=== PATIENT | female | born 1940 | race Hispanic/Latino ===

== ENCOUNTER 2020-05-03 19:57 | Emergency (ER) | payer MEDICARE ==
[~2020-05-03] VITALS: Ht 162.6 cm; Wt 70.3 kg
[2020-05-03] MEDS ORDERED: ONDANSETRON HCL INJ 2MG/ML 2ML 2 MG/ML VIAL IV STA (20:38)
[2020-05-03] MEDS ORDERED: MORPHINE SULFATE 5 MG/ML VIAL IV ONE (20:45)
[2020-05-03] MEDS ORDERED: SODIUM CHLORIDE FLUSH 10 ML SYR INJ PRN (20:45)
--- NOTE | 2020-05-03 20:46 | Emergency Department Note ---
History of Present Illnes History of Present Illness Chief Complaint: upper mid to left back pain History of Present Illness This is a 80 year old female. was doing well prior to this. pt only has pain with movement Historian: Patient, Family Member Arrival Mode: Car History limited by: condition of the patient (normal) Silver Recovery Operator Required: No Onset (how long ago): hour(s) (8.5) Location: see above Quality: sharp Radiation: Reports non-radiation Severity: severe Onset quality: sudden Duration (how long): hour(s) (8.5) Timing of current episode: constant Progression: worsening Chronicity: new Context: Denies recent illness, Denies recent surgery, Denies recent immobilization, Denies recent travel, Denies trauma/injury, Denies new medic ations, Denies hx of DVT/PE, Denies non-compliance w/ medications Relieving factors: none Exacerbating factors: other (inhaling ) Associated symptoms: Reports shortness of breath Treatments prior to arrival: none Past Medical/Family History Physician Review I have reviewed the patient's past medical and family history. Any updates have been documented here. Past Medical History Recent Fever: No Clinical Suspicion of Infectio: No New/Unexplained Change in Ment: No Past Medical History: Hypertension, Hypothyroidism, GERD Other Medical History: HIGH CHOLESTEROL, INCONTINENCE Past Surgical History: Cholecysctectomy, Hysterectomy Other Surgery: TUMOR REMOVED L-EAR Social History Smoking Cessation: Never Smoker Alcohol Use: None Any Illegal Drug Use: No Physically hurt or threatened: No Other Any Pre-Existing Lines (PICC,: No Is patient up to date on immun: No Review of Systems Review of Systems Constitutional: Reports no symptoms EENTM: Reports no symptoms Cardiovascular: Reports no symptoms Respiratory: Reports as per HPI Gastrointestinal: Reports no symptoms Genitourinary: Reports no symptoms Musculoskeletal: Reports as per HPI Integumentary: Reports no symptoms Neurological: Reports no symptoms Psychological: Reports no symptoms Endocrine: Reports no symptoms Hematological/Lymphatic: Reports no symptoms Review of other systems: All other systems negative Physical Exam Related Data Allergies: Coded Allergies: Penicillins (Verified Allergy, Unknown, 05/03/20) streptomycin (Verified Allergy, Unknown, 05/03/20) Triage Vital Signs Vital Signs Date Time Temp Pulse Resp B/P (MAP) Pulse Ox O2 Delivery O2 Flow Rate FiO2 05/03/20 20:20 97.6 75 18 165/72 98 Room Air Vital signs reviewed: Yes Physical Exam CONSTITUTIONAL Constitutional: Present well-developed, Present well-nourished HENT HENT: Present normocephalic, Present atraumatic, Present oropharynx clear/moist, Present nose normal HENT L/R: Present left ext ear normal, Present right ext ear normal EYES Eyes: Reports PERRL, Reports conjunctivae normal NECK Neck: Present ROM normal, Present supple PULMONARY Pulmonary: Present effort normal, Present breath sounds normal CARDIOVASCULAR Cardiovascular: Present regular rhythm, Present heart sounds normal, Present capillary refill normal, Present normal rate GASTROINTESTINAL Abdominal: Present soft, Present nontender, Present bowel sounds normal GENITOURINARY Genitourinary: Present exam deferred SKIN Skin: Present warm, Present dry MUSCULOSKELETAL Musculoskeletal: Present ROM normal, Present other (+left upper back spasms) NEUROLOGICAL Neurological: Present alert, Present oriented x 3, Present no gross motor or sensory deficits PSYCHOLOGICAL Psychological: Present mood/affect normal, Present judgement normal Results Laboratory Lab results reviewed: Yes Laboratory comments cbc/cmp normal, cardiac enzymes normal except mild elevation myoglobin/troponin, coags nl Imaging Imaging results reviewed: Yes Impressions [place] [address] Patient Name: AYLIN LOGAN MR #: [id number] : 1940 Age/Sex: 80/F Req #: [id number] Adm Physician: Ordered by: CALEB SCHUMACHER Report #: [id number] Location: [facility] Room/Bed: Procedure: [id number] HOPD/CXR 2 VIEW - HOPD Exam Date: 05/03/20 Exam Time: 0 REPORT STATUS: Signed EXAMINATION: CXR 2 VIEW - HOPD INDICATION: Back pain COMPARISON: None FINDINGS: TUBES and LINES: None. LUNGS: Normal lung volumes. Lungs are clear. No consolidations. PLEURA: No pleural effusion or pneumothorax. HEART AND MEDIASTINUM: The cardiomediastinal silhouette is within normal size limits.. Aortic calcifications. BONES AND SOFT TISSUES: Osseous demineralization. Degenerative changes in the spine. No acute osseous lesion. Soft tissues are unremarkable. UPPER ABDOMEN: No free air under the diaphragm. IMPRESSION: No acute intrathoracic radiographic abnormality. Degenerative changes in the spine. Osseous demineralization. Signed by: Farhad Veliz DO on 05/03/2020 10:49 PM Dictated By: FARHAD VELIZ DO 48 Transcribed By: YANDY on 05/03/202248 COPY TO: CALEB SCHUMACHER~ Procedures 12 Lead ECG Interpretation ECG Interpretation : ECG: ECG 1 Silver Recovery Operator: Interpreted by ED physician Date: May 03, 2020 Time: 20:24 Prior ECG tracings: reviewed Rhythm: sinus rhythm Rate: normal BPM: 64 QRS axis: normal ST segments normal: Yes T waves normal: Yes Clinical Impression: normal ECG (nsr) Assessment & Plan Medical Decision Making MDM see below Reassessment Reassessment time: 22:50 Reassessment pain almost resolved s/p tylenol Assessment & Plan Final Impression: (1) Strain, back Depart Disposition: HOME, SELF-CARE Last Vital Signs Date Time Temp Pulse Resp B/P (MAP) Pulse Ox O2 Delivery O2 Flow Rate FiO2 05/03/20 20:20 97.6 75 18 165/72 98 Room Air Home Meds Active Scripts Cyclobenzaprine Hcl (FLEXERIL) 5 Mg Tablet, 10 MG PO Q8H PRN for MUSCLE SPASMS, #15 TAB 1 Refill take after ibuprofen to control pain Prov:CALEB SCHUMACHER 05/03/20 Ibuprofen (IBUPROFEN) 600 Mg Tablet, 600 MG PO Q6H PRN for MODERATE PAIN (4-6), #30 TAB Prov:CALEB SCHUMACHER 05/03/20 Medications in the ED Sodium Chloride 10 ml PRN PRN INJ IV SITE FLUSH; Start 05/03/20 at 20:45; Stop 06/02/20 at 20:44; Status UNV Morphine Sulfate 2 mg ONCE ONCE IV ; Start 05/03/20 at 20:45; Stop 05/03/20 at 20:46; Status UNV Ondansetron HCl 4 mg NOW STAT IV ; Start 05/03/20 at 20:38; Stop 05/03/20 at 20:39; Status UNV CALEB SCHUMACHER May 03, 2020 20:46
[2020-05-03] MEDS ORDERED: ACETAMINOPHEN 325 MG TAB PO ONE (21:00)
[2020-05-03] MEDS ORDERED: ACETAMINOPHEN 325 MG TAB ONE (21:00)
--- NOTE | 2020-05-03 21:42 | NUR ---
PT RETURNED TO RM 2 FROM XR VIA WC
[2020-05-03 22:23] LABS: BASOPHILS # (AUTO) 0.1 (0.0-0.1); BASOPHILS % 0.7 % (0.0-1.0); EOSINOPHILS # (AUTO) 0.1 (0.0-0.4); EOSINOPHILS % 1.9 % (0.0-6.0); HEMATOCRIT 35.6 % (34.2-44.1); HEMOGLOBIN 11.7 g/dL (12.0-16.0); LYMPHOCYTES # (AUTO) 2.8 (1.0-3.2); LYMPHOCYTES % 37.6 % (18.0-39.1); MEAN CORPUSCULAR HEMOGLOBIN 29.1 pg (28-32); MEAN CORPUSCULAR HGB CONC 32.9 g/dL (31-35); MEAN CORPUSCULAR VOLUME 88.6 fL (81-99); MONOCYTES # (AUTO) 0.7 (0.2-0.8); NEUTROPHILS # (AUTO) 3.7 (2.1-6.9); NEUTROPHILS % 49.3 % (38.7-80.0); PLATELET COUNT 236 x10e3/uL (140-360); RED BLOOD COUNT 4.02 x10e6/uL (3.6-5.1); RED CELL DISTRIBUTION WIDTH 13.3 % (11.7-14.4)
--- NOTE | 2020-05-03 22:53 | Diagnostic Imaging Report ---
EXAMINATION: CXR 2 VIEW - HOPD INDICATION: Back pain COMPARISON: None FINDINGS: TUBES and LINES: None. LUNGS: Normal lung volumes. Lungs are clear. No consolidations. PLEURA: No pleural effusion or pneumothorax. HEART AND MEDIASTINUM: The cardiomediastinal silhouette is within normal size limits.. Aortic calcifications. BONES AND SOFT TISSUES: Osseous demineralization. Degenerative changes in the spine. No acute osseous lesion. Soft tissues are unremarkable. UPPER ABDOMEN: No free air under the diaphragm. IMPRESSION: No acute intrathoracic radiographic abnormality. Degenerative changes in the spine. Osseous demineralization. Signed by: Farhad Veliz DO on 05/03/2020 10:49 PM
--- NOTE | 2020-05-03 22:54 | NUR ---
REC'D XR RESULTS. INFORMED
--- NOTE | 2020-05-03 23:01 | NUR ---
INFORMED PT ALL RESULTS ARE BACK. AND MD WOULD BE IN SHORTLY WITH RESULTS.
[2020-05-03] MEDS ORDERED: IBUPROFEN600 MG PO (23:09)
[2020-05-03] MEDS ORDERED: CYCLOBENZAPRINE5 MG PO (23:09)
[2020-05-03 23:24] VITALS: BP 152/68
--- OUTSIDE RECORDS SUMMARY | 2020-05-03 23:32 | XMS REPORT | Continuity of Care Document ---
Author Author [facility] Organization [facility] Address Unknown Phone Unavailable Care Team Providers Care Senior Telecommunications Specialist Name Role Phone Practice Ignition Information Qlusters Unavailable Un available Problems Problem Status Onset Date Classification Date Reported Comments Source R22.1/R22.0 Active 06/06/2019 [facility] DX: ABNORMAL MAMMOGRAM /// BILATERAL DIONNA Active 05/04/2019 [facility] DX: 6 MO F/U, RIGHT BREAST MASS NO IM Active 10/20/2018 [facility] Gastro-esophageal reflux disease without esophagitis 03/16/2018 09/27/2018 [facility] N63.0 / R92.2 Active 03/16/2018 [facility] DX: R10.13=EPIGASTRIC PAIN/K21.9=GASTRO- Active 03/08/2018 [facility] R06.02 SHORTNESS OF BREATH Act meli 02/16/2018 [facility] FIRST NIGHT 21737 Active 01/11/2018 [facility] CHEST XRAY Active 01/05/2018 [facility] 24 HOUR Active 12/07/2017 [facility] Bilateral primary osteoarthritis of knee 12/07/2017 03/07/2018 [facility] [place], [facility] [place] VENANCIO KNEES , OA Active 10/27/2017 [facility] [place] Pain in left knee 10/22/2017 01/23/2018 [facility] [place] Syncope and collapse 10/19/2017 01/19/2018 [facility] [place] VENANCIO KNEES Active 05/22/2017 [facility] [place] XRAYS Active 01/26/2017 [facility] MASS Active 05/01/2016 [facility] SCREENING MAMMOGRAM Active 04/13/2016 [facility] M25.561 PAIN IN RIGHT KNEE Act meli 04/12/2016 [facility] CAD without angina Active Problem 04/15/2020 Slava Pearson MD, PA Hypertensive heart disease without heart failure Active Problem 04/15/2020 Slava Pearson MD, P A Angina pectoris, unspecified A ctive Problem Slava Pearson MD, PA Angina pectoris Active Problem 04/15/2020 Slava Pearson MD, PA Bradycardia, unspecified Active Problem 04/15/2020 Slava Pearson MD, PA Dyspnea, unspecified Active Problem 04/15/2020 Slava Pearson MD, PA Palpitations Active Diagnosis 04/01/2020 Slava Pearson MD, PA Shortness of breath Active Diagnosis 02/08/2018 Slava Pearson MD, PA Atherosclerotic heart disease of [place] coronary artery with unstable angina pectoris Active Problem 04/15/2020 Slava Pearson MD, PA Preoperative cardiac clearance Active Problem Slava Pearson MD, PA Chest pain, unspecified Active Diagnosis 11/05/2016 Slava Pearson MD, PA PVCs Active Problem 04/15/2020 Slava Pearson MD, PA Unsteadiness on feet 03/07/2018 [facility] [place] Other lack of coordination 01/19/2018 [facility] [place] Disorientation, unspecified 01/19/2018 [facility] [place] Cerebral ischemia 01/19/2018 [facility] [place] Muscle weakness (generalized) 03/07/2018 [facility] [place] Unspecified lump in the right breast, un specified quadrant 05/23/2019 [facility] Solitary cyst of left breast 10/09/2018 [facility] Solitary cyst of right breast 10/09/2018 [facility] Epigastric pain 09/27/2018 [facility] Left upper quadrant pain 09/27/2018 [facility] Diaphragmatic hernia without obstruction or gangrene 09/27/2018 [facility] Gastritis, unspecified, without bleeding 09/27/2018 [facility] Cyst of kidney, acquired 09/27/2018 [facility] Benign lipomatous neoplasm of kidney 09/27/2018 [facility] Benign lipomatous neoplasm of other sites 09/27/2018 [facility] Final: Encounter for screening mammogram for malignant neoplasm of breast 05/01/2016 [facility] Hypertension Active 11/14/2013 [facility] Hyperlipidemia Active 11/14/2013 [facility] Left Ventricular Hypertrophy A ctive 09/13/2013 [facility] Tricuspid Regurgitation Active 09/13/2013 [facility] Murmurs Active 09/13/2013 [facility] Chest Pain Or Discomfort Active 09/13/2013 [facility] Premature Ventricular Contractions Active 09/13/2013 The patient has a documented episode of a symptomatic PVC while she was having a EKG performed today. Will start Metoprolol Succinate 25mg daily. Will discontinue Amlodipine [facility] Hypothyroidism Active 11/14/2013 [facility] Plantar Fasciitis Active 09/13/2013 [facility] Chest Pain Active 05/11/2013 Mostly atypical in nature. [facility] Difficulty Breathing (Dyspnea) Active 05/11/2013 [facility] Fatigue Active 05/11/2013 [facility] Esophageal Reflux Active 11/14/2013 [facility] Migraine Headache Active 11/14/2013 [facility] Tension-type Headache Active 11/14/2013 [facility] PAIN IN RIGHT KNEE Active [facility] ENCNTR SCREEN MAMMOGRAM FOR MALIGNANT NE Active [facility] UNSPECIFIED LUMP IN BREAST Act meli [facility] 24 HOLTER Active [facility] BRADYCARDIA, UNSPECIFIED Active [facility] UNILATERAL PRIMARY OSTEOARTHRITIS, LEFT Active [facility] PAIN IN LEFT KNEE Active [facility] BILATERAL PRIMARY OSTEOARTHRITIS OF KNEE Active [facility] [place] MUSCLE WEAKNESS (GENERALIZED) Active [facility] [place] STIFFNESS OF UNSPECIFIED JOINT, NOT ELSE Active [facility] [place] UNSTEADINESS ON FEET Active [facility] [place] OBSTRUCTIVE SLEEP APNEA (ADULT) (PEDIATR Active [facility] SHORTNESS OF BREATH Active [facility] DIZZINESS AND GIDDINESS Active [facility] EPIGASTRIC PAIN Active [facility] GASTRO-ESOPHAGEAL REFLUX DISEASE WITHOUT Active [facility] LEFT UPPER QUADRANT PAIN Active [facility] UNSPECIFIED LUMP IN UNSPECIFIED BREAST Active [facility] INCONCLUSIVE MAMMOGRAM Active [facility] UNSPECIFIED LUMP IN UNSPECIFIED BREAST Active [facility] OTH ABN AND INCONCLUSIVE FINDINGS ON DX Active [facility] UNSPECIFIED LUMP IN THE LEFT BREAST, UNS Active [facility] UNSPECIFIED LUMP IN THE RIGHT BREAST, UN Active [facility] OTH DISRD OF BONE DENSITY AND STRUCTURE, Active [facility] OTH DISRD OF BONE DENSITY AND STRUCTURE, Active [facility] ENCOUNTER FOR SCREENING FOR OSTEOPOROSIS Active [facility] LOCALIZED SWELLING, MASS AND LUMP, NECK Active [facility] LOCALIZED SWELLING, MASS AND LUMP, HEAD Active [facility] Medications Medication Details Route Status Patient Instructions Ordering Provider Order Date Source Omnipaque 300 injectable solution Notes: (Same as:Omnipaque 300). [facility]: F/P - Black; E - [facility] Trash [facility] Active 06/11/2019 [facility] Omnipaque 300 injectable solution Notes: (Same as:Omnipaque 300). [place]: F/P - Black; E - [facility] Trash Bin No Longer Active 03/10/2018 [facility] Omnipaque 350 Notes: (same as: Omnipaque 350). [place]: F/P - Black; E - [facility] Trash [facility] Inactive 02/23/2018 [facility] Lisinopril 1 tablet Orally Active 2.5 MG Orally Once a da y 08/11/2016 Slava Pearson MD, PA Amlodipine Besylate 1 tablet Orally Active 2.5 MG Orally Once a day 07/09/2016 Slava Pearson MD, PA Amlodipine Besylate 1 tablet Orally Active 2.5 MG Orally Once a day 07/09/2016 Slava Pearson MD, PA Antivert 1 tablet as needed Orally Active 25 MG Orally three times a day (tid) as needed (prn) 06/02/2015 Slava Pearson MD P A Antivert 1 tablet as needed Orally Active 25 MG Orally three times a day (tid) as needed (prn) 06/02/2015 Slava Pearson MD, P A Naproxen Sodium 550 MG Oral Tablet ; Start Date: 09/26/2013; End Date: 10/26/2013 (Active) Active 09/26/2013 [facility] Amitriptyline HCl 10 MG Oral Tablet ; Start Date: 09/26/2013; End Date: (Active) Active 09/26/2013 [facility] Naproxen 375 MG Oral Tablet ; Start Date: 07/25/2013 (Active) Active 07/25/2013 [facility] PredniSONE 20 MG Oral Tablet ; Start Date: 07/25/2013 (Active) Active 07/25/2013 [facility] Metoprolol Succinate ER 25 MG Oral Table t Extended Release 24 Hour ; Start Date: 07/03/2013; End Date: 08/1899 (Active) Active 07/03/2013 [facility] Nitrostat 0.4 MG Sublingual Tablet Sublingual ; Start Date: 06/28/2012; End Date: (Active) Active 06/28/2012 [facility] AmLODIPine Besylate 2.5 MG Oral Tablet ; Start Date: ; End Date: (Active) Inactive [facility] Atorvastatin Calcium 10 MG Oral Tablet ; Start Date: ; End Date: (Active) Inactive [facility] Pantoprazole Sodium 40 MG Oral Tablet Delayed Release ; Start Date: ; End Date: (Active) Inactive [facility] Nitrostat 1 tablet Sublingual Active 0.4 MG Sublingual as ne eded (prn) Rosalba Pearson MD, PA Aspirin 1 tablet Orally Active 81 MG Orally Once a day Rosalba Pearson MD, PA Antivert 1 tablet as needed Orally Active 25 MG Orally three times a day (tid) as needed (prn) Rosalba Pearson MD, PA Lisinopril TAKE ONE TABLET BY MOUTH ONCE DAILY Orally Active 5 MG Orally Rosalba Pearson MD, PA Atorvastatin Calcium 1 tablet Orally Active 10 MG Orally Once a day Rosalba Pearson MD, PA Pantoprazole Sodium 1 tablet Orally Active 40 MG Orally Once a day Rosalba Pearson MD, PA Myrbetriq 1 tablet Orally Active 25 MG Orally Once a day Rosalba Pearson MD, PA Synthroid 1 tablet Orally Active 50 MCG Orally Once a da y Rosalba Pearson MD, PA Nitrostat 1 tablet Sublingual Active 0.4 MG Sublingual as ne eded (prn) Rosalba Pearson MD, PA Aspirin 1 tablet Orally Active 81 MG Orally Once a day Rosalba Pearson MD, PA Pantoprazole Sodium 1 tablet Orally Active 40 MG Orally Once a day Rosalba Pearson MD, PA Synthroid 1 tablet Orally Active 50 MCG Orally Once a da y Rosalba Pearson MD, PA Myrbetriq 1 tablet Orally Active 50 MG Orally Once a day Rosalba Pearson MD, PA Atorvastatin Calcium 1 tablet Orally Active 10 MG Orally Once a day Rosalba Pearson MD, PA Antivert 1 tablet as needed Orally Active 25 MG Orally three times a day (tid) as needed (prn) Rosalba Pearson MD, PA Myrbetriq 1 tablet Orally Active 25 MG Orally Once a day Rosalba Pearson MD, PA Metoprolol Succinate ER 1 tabl et Orally No Longer Active 25 MG Orally Once a day Rosalba Pearson MD, PA Lansoprazole 1 tablet Orally Active 40 mg Orally Once a day Rosalba Pearson MD, PA Cephalexin 1 capsule Orally Active 250 MG Orally every 6 h rs Rosalba Pearson MD, PA Calcium 600 MG Oral Tablet (A ctive) Active [facility] Sucralfate 1 GM Oral Tablet ( Active) Active [facility] Pantoprazole Sodium 40 MG Oral Tablet Delayed Release (Active) Active [facility] Meclizine HCl 12.5 MG Oral Tablet (Active) Active [facility] Atorvastatin Calcium 10 MG Oral Tablet (Active) Active [facility] Aspirin 81 MG Oral Tablet (Ac tive) Active [facility] Vitamin B12 TABS (Active) Active [facility] Synthroid 50 MCG Oral Tablet (Active) Active [facility] Voltaren GEL (Active) Active [facility] Levoxyl 50 MCG Oral Tablet (A ctive) Active [facility] Enablex 15 MG Oral Tablet Extended Release 24 Hour (Active) Active [facility] AmLODIPine Besylate 2.5 MG Oral Tablet (Active) Active [facility] Levoxyl 50 MCG TABS (Active) Active [facility] Allergies, Adverse Reactions, Alerts Substance Category Reaction Severity Reaction type Status Date Reported Comments Source Streptozocin Adverse Reaction Info Not Available Adverse Reaction Active 03/20/2020 Slava Pearson MD, PA Codeine Sulfate Adverse Reacti on Info Not Available Adverse Reaction Active 03/20/2020 Slava Pearson MD, PA penicillin Assertion Drug allergy Active [facility] [place] streptomycin Assertion Drug allergy Active [facility] [place] Penicillins drug allergy drug allergy Active [facility] Cipro TABS drug allergy drug allergy Active [facility] Streptomycin Sulfate SOLR drug allergy drug aller gy Active [facility] Immunizations Immunization Date Given Site Status Last Updated Comments Source Influenza 06/06/2013 completed [facility] Tdap 07/14/2011 completed [facility] Results Order Name Results Value Reference Range Date Interpretation Comments Source CHEM PANEL POC Creatinine 0.9 0.5 - 1.4 06/11/2019 [facility] CHEM PANEL eGFR 60 06/11/2019 Result Comment: The eGFR is calculated using the CKD-EPI formula. In most young, healthy individuals the eGFR will be >90 mL/min/1.73m2. The eGFR declines with age. An eGFR of 60-89 may be normal in some populations, particularly the elderly, for whom the CKD-EPI formula has not been extensively validated. Use of the eGFR is not recommended in the following populations:

Individuals with unstable creatinine concentrations, including patients and those with serious co-morbid conditions.

Patients with extremes in muscle mass or diet.

The data above are obtained from the National Kidney Disease Education Program (NKDEP) which additionally recommends that when the eGFR is used in patients with extremes of body mass index for purposes of drug dosing, the eGFR should be multiplied by the estimated BMI. [facility] CHEM PANEL eGFR 61 03/10/2018 Result Comment: The eGFR is calculated using the CKD-EPI formula. In most young, healthy individuals the eGFR will be >90 mL/min/1.73m2. The eGFR declines with age. An eGFR of 60-89 may be normal in some populations, particularly the elderly, for whom the CKD-EPI formula has not been extensively validated. Use of the eGFR is not recommended in the following populations:

Individuals with unstable creatinine concentrations, including patients and those with serious co-morbid conditions.

Patients with extremes in muscle mass or diet.

The data above are obtained from the National Kidney Disease Education Program (NKDEP) which additionally recommends that when the eGFR is used in patients with extremes of body mass index for purposes of drug dosing, the eGFR should be multiplied by the estimated BMI. [facility] CHEM PANEL POC Creatinine 0.9 0.5 - 1.4 03/10/2018 [facility] eGFR 61 02/23/2018 Result Comment: The eGFR is calculated using the CKD-EPI formula. In most young, healthy individuals the eGFR will be >90 mL/min/1.73m2. The eGFR declines with age. An eGFR of 60-89 may be normal in some populations, particularly the elderly, for whom the CKD-EPI formula has not been extensively validated. Use of the eGFR is not recommended in the following populations:

Individuals with unstable creatinine concentrations, including patients and those with serious co-morbid conditions.

Patients with extremes in muscle mass or diet.

The data above are obtained from the National Kidney Disease Education Program (NKDEP) which additionally recommends that when the eGFR is used in patients with extremes of body mass index for purposes of drug dosing, the eGFR should be multiplied by the estimated BMI. [facility] CHEM PANEL POC Creatinine 0.9 0.5 - 1.4 02/23/2018 [facility] Pathology Reports No Data Provided for This Section Diagnostic Reports Report Value Date Source Abdomen/Pelvis w/wo IV contrast CT EXAM: CT ABDOMEN AND PELVIS WITH AND WITHOUT CONTRAST DATE: 09/11/2019 14:52 [facility]EL[facility]INSTALLER INDICATION: Stomach ache, diarrhea, chills, and fever. Left lower quadrant abdominal pain. ADDITIONAL INFORMATION: History of hysterectomy. History of prior bladder surgery.. COMPARISON: 03/10/2018. TECHNIQUE: Volumetric CT acquisition of the abdomen and pelvis before and after intravenous contrast. Axial, coronal and sagittal reconstructions. Postcontrast phases: Venous and delayed. IV contrast: 100 cc Omnipaque 300 Oral contrast: Oral Omnipaque 300 and water mixture. DLP: 1791 mGy-cm FINDINGS: Lines and tubes: None. Lower thorax: Minimal linear scarring is seen in the left lower lobe. No pleural or pericardial effusions are seen. Liver: Normal. Biliary tree: There is stable dilatation of the central intrahepatic bile ducts and of the common bile duct up to 12 mm, likely from normal variant reservoir effect status post cholecystectomy. No distinct constricting or obstructing lesions of the biliary tree are seen. The pancreatic duct is normal in appearance. Gallbladder: Surgically absent. Pancreas: Normal. Spleen: Normal. Adrenals: Normal. Kidneys and ureters: A 1.1 cm simple fluid attenuation Bosniak 1 benign cyst is seen arising exophytically from the lateral cortex of the right kidney on image 76 of series 4, not significant change from the prior exam. 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 The kidneys otherwise enhance symmetrically and normally with prompt excretion of contrast material. No hydronephrosis, masses, or calculi are seen. The ureters are of normal course and caliber with no constricting or obstructing lesions. Bladder: The bladder is incompletely distended which may account for moderate wall thickening in a diffuse fashion up to 6 mm. However, nonspecific underlying cystitis is not excluded. No other bladder pathology is seen. Reproductive organs: The uterus is absent surgically. No right ovarian/adnexal abnormalities are seen Within the anterior left supravesicular/adnexal region, there is a hypodense heterogeneously hypodense lesion measuring between 15-20 Hounsfield units in density with suggestion of mild enhancement up to 36 Hounsfield in density on delayed phase imaging. This lesion measures 5.8 x 4.2 x 3.6 cm and has increased in size with compared with the prior CT exam of 03/10/2018. it abuts versus arises from the left ovary. Gastrointestinal tract: A small stable sliding esophageal hiatal hernia is present. No other stomach pathology is seen. Multiple diverticuli are seen off the colon, predominantly the sigmoid colon, including some in the region of the free fluid adjacent to the mid to distal colon. Although no discrete focal inflammatory change or discrete inflamed diverticulum is seen, a microperforation with acute diverticulitis is not excluded. No walled off fluid collection is seen. There is stable lipomatous hypertrophy of the ileocecal valve. The small intestine is of normal course and caliber with no constricting or obstructing lesions, masses, or surrounding inflammatory changes. No rectal or anal abnormalities are seen. Appendix: Not visualized. No pericecal inflammatory changes or fluid collections are seen. Peritoneum and retroperitoneum: A small amount of fluid is seen adjacent to the mid and distal sigmoid colon, for example on image 143 of series 4, measuring simple fluid attenuation. No walled off fluid collections are seen. Lymph nodes: No abdominal or pelvic lymphadenopathy is seen. Vasculature: Aortoiliac atherosclerotic calcifications are present with no aneurysm or dissection. No abnormalities of the inferior vena cava or of the portal venous system are seen. Bones: Multilevel spondylosis and disc space there seen in the thoracic and lumbar spine with mild diffuse osteopenia. Facet joint osteoarthritic changes are seen predominantly at L5-S1. No osseous destructive lesions are seen.. Soft tissues/abdominal wall: Small calcifications are seen in the inferior aspects of the breasts, possibly from prior surgery, for which clinical correlation is recommended. Mammography should be considered as well. There is a moderately sized fat-containing indirect right inguinal hernia which is not significant change from the prior exam and with no surrounding or internal inflammatory changes. No left-sided inguinal hernia is seen. There is some mild fascial thickening at the mouth of the left inguinal canal which may represent scar tissue and/or mesh from prior hernia repair for which clinical correlation is recommended. This finding is stable dating back to 03/10/2018. IMPRESSION: 1. Small amount of irregularly shaped fr ee fluid adjacent to the mid to distal sigmoid colon in a region of diverticulosis. No walled off fluid collection or free air is seen. A microperforation with acute diverticulitis is not excluded. However, no areas of focal wall thickening or distinct enhancing inflamed diverticuli are seen. If the patient's symptoms do not respond to appropriate treatment, short interval follow-up CT and surgical consultation would be recommended. 2. Interim increase in size in a heterog eneously hypodense partially acoustically enhancing left adnexal 5.8 cm mass. If prior imaging workup has not been performed, pelvic sonography or MRI of the pelvis with and without contrast should be considered for further characterization. Malignancy is not excluded. 3. Nonspecific thickening of the bladder wall in a diffuse fashion may be related to incomplete distention. However, nonspecific cystitis, including infectious cystitis, is not excluded. Correlation with urinalysis is recommended. 4. Stable mild fascial/soft tissue thick ening at the origin of the left inguinal canal may be related to scar tissue or mass from prior hernia repair. Clinical correlation is recommended. 5. Stable moderately sized fat-containin g indirect right inguinal hernia with no surrounding or internal inflammatory changes. 6. Interim development of calcifications and tiny parenchymal opacities in the visualized portions of the bilateral breasts for which correlation with mammography is recommended. 7. Stable intra and extrahepatic biliary ductal dilatation is most likely from normal variant reservoir effect status post cholecystectomy with no constricting or obstructing lesions detected. 8. Stable small sliding esophageal hiata l hernia. 9. 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 A benign Bosniak 1 cyst is again seen in the right kidney. Findings were discussed with Dr. Cutler by telephone on 09/11/2019 at 1640 hours. 09/11/2019 [facility] Neck soft tissue w/wo contrast CT Radiation Dose CTDIVOL = 0 (mGy): DLP = 511 (mGy-cm) PROCEDURE INFORMATION: Exam: CT Neck Without and With Contrast Exam date and time: 06/11/2019 10:26 AM Clinical history: 79 years old, female; Localized swelling, mass and lump, mass of submandibular region, lump on left side behind ear for 2 yrs, it's gone down with antibiotics TECHNIQUE: Imaging protocol: Computed tomography images of the neck without and with intravenous contrast. Total DLP: 511 mGy-cm Radiation optimization: All CT scans at this facility use at least one of these dose optimization techniques: automated exposure control; mA and/or kV adjustment per patient size (includes targeted exams where dose is matched to clinical indication); or iterative reconstruction. Contrast material: OMNI; Contrast volume: 100 ml; Contrast route: IV; COMPARISON: NECK SOFT TISSUE W-WO CONTRAST CT 12/28/2016 12:36 PM FINDINGS: Nasopharynx: No suspicious asymmetry. Oropharynx: No suspicious asymmetry. No significant tonsillar enlargement. Hypopharynx: No suspicious asymmetry Larynx: No suspicious asymmetry of the vocal cord is. Normal epiglottis. Retropharyngeal space: Clear. Submandibular/Parotid glands: No underlying mass or sialolith. Glands are symmetric in size. Thyroid: No enlarged or calcified nodules identified. Lymph nodes: No suspicious lymphadenopathy. Trachea: Visualized trachea is unremarkable. Lungs: Unremarkable as visualized. Bones: The exam is limited to lack of intravenous contrast. Degenerative changes of the cervical spine most pronounced at C5-C6 and C6-C7. Soft tissues: Skin thickening the left retroauricular soft tissues (series 4 image 13), without underlying calcification or signs of a fluid collection. Atherosclerosis of the partially imaged aortic arch and carotid bulbs. IMPRESSION: Skin thickening in the left retroauricular soft tissues, without soft tissue mass or fluid collection in the soft tissues of the neck. No suspicious adenopathy. Eliel Schwartz MD On 06/12/2019 10:34:55; [id number] 06/11/2019 [facility] Breast Complete [facility] US COMPLETE ULTRASOUND OF BOTH BREASTS AND AXILLA: 05/21/2019 CLINICAL: Left nonbloody Nipple Discharge and bilateral breast masses. COMPARISON:Comparison is made to exams dated: 05/21/2019 mammogram, 10/26/2018 ultrasound, 03/22/2018 ultrasound, 03/22/2018 mammogram, 05/12/2016 ultrasound, and 05/12/2016 mammogram - [facility]. TECHNIQUE: Color flow and real-time ultrasound of both breasts four quadrants, retroareolar, and axilla regions were performed. Russell scale images of the real- time examination were reviewed. FINDINGS: There is a small benign calcification right breast at 12 o'clock that correlates with mammography and ultrasound. There also are various sized benign simple and complicated cysts with a circumscribed margin with internal echoes and posterior enhancement both breasts that are not significantly changed and correlate with mammography and ultrasound. No abnormalities were seen sonographically in either axilla. There has been no significant interval change. IMPRESSION: BENIGN There is no sonographic evidence of malignancy. There is no mammographic or sonographic abnormality seen in the left breast to correspond with the non-bloody discharge from the nipple which likely represents physiological discharge, however, clinical followup is recommended. A 1 year screening mammogram is recommended.(05/21/2020) The results were reviewed with the patient. SUMMARY: The patient will follow up with their primary care physician. It was discussed with the patient that if clinical symptoms worsen, she should return immediately for additional evaluation by her physician and follow up with us for additional imaging. This exam was interpreted at [id number] for [facility]. Narciso Woo M.D. jt/:05/21/2019 13:28:28 It Security Manager(s): Radha Woo, [facility] letter sent: BI-RADS 1/2 Ultrasound BI-RADS: 2 Benign 05/21/2019 [facility] Breast Mammo Diag VENANCIO incl CAD MA BILATERAL DIGITAL DIAGNOSTIC MAMMOGRAM WITH CAD: 05/21/2019 CLINICAL: Left nonbloody nipple d/c and Follow Up right breast masses. Current study was evaluated with a Computer Aided Detection (CAD) system. COMPARISON:Comparison is made to exams dated: 03/22/2018 mammogram, 05/12/2016 mammogram, 04/28/2016 mammogram, 10/26/2018 ultrasound, 09/21/2013 mammogram, and 03/24/2012 mammogram - [facility]. TECHNIQUE: Mammographic views were obtained using digital acquisition. ePub Directa Version 1.3 was utilized for computer aided detection. FINDINGS: The tissue of both breasts is heterogeneously dense, which could obscure detection of small masses. Benign appearing asymmetries are noted in both breasts. There is a benign intramammary node in the left breast. There also are benign vascular calcifications and calcifications in both breasts. No significant masses, calcifications, or other findings are seen in either breast. There has been no significant interval change. IMPRESSION: INCOMPLETE: NEEDS ADDITIONAL IMAGING EVALUATION RECOMMENDATION:There is no mammographic abnormality seen in the left breast to correspond with the non-bloody discharge from the nipple, however, ultrasound is recommended. The results were reviewed with the patient. This exam was interpreted at [id number] for [facility]. SUMMARY: Ultrasound will be performed at this time; please see dedicated separate report. Ultrasound will also reevaluate prior probably benign findings. Narciso madera/isma:05/21/2019 13:47:29 It Security Manager(s): Cira Carranza, [facility] Mammogram BI-RADS: 0 Indeterminate 05/21/2019 [facility] Bone Density Scan Study: Bone Density Scan Clinical Indication: - Z13.820 Encounter for screening for osteoporosis; Images of the axial lumbar spine and left hip have been performed using [employer] SL scanner. COMPARISON: None FINDINGS: The left hip bone mineral density is 83% of the peak reference bone mass with a T-score of -1.3. Left hip BMD is 0.781 g/cm2. Left femoral neck BMD is 0.705 g/cm2 and T-score of -1.3. The axial lumbar bone mineral density is 95% of the peak reference bone mass with a T-score of -0.5. Axial lumbar average BMD is 0.997 g/cm2. 10 year fracture risk with out prior fracture with prior fracture Major osteoporotic fracture 13% 18% Hip fracture 3% 3.9% IMPRESSION: 1. Osteopenia of the left femoral neck. 2. Osteopenia of the total left hip. 3. Normal bone mineral density of the luis felipe mbar spine. The World Health Organization has established that OSTEOPOROSIS occurs at -2.5 or more standard deviations (SD) below peak bone mass (T-score on the Hologic report). OSTEOPENIA (low bone mass) occurs at greater than -1.0 standard deviations to -2.5 standard deviations below peak bone mass. SL: [id number] 05/21/2019 [facility] Breast Complete Uni US COMPLETE ULTRASOUND OF RIGHT BREAST AND AXILLA: 10/26/2018 CLINICAL: /Mass. COMPARISON:Comparison is made to exams dated: 03/22/2018 ultrasound, 03/22/2018 mammogram, and 05/12/2016 ultrasound - [facility]. TECHNIQUE: Color flow and real-time ultrasound of the right breast four quadrants, retroareolar, and axilla regions were performed. Russell scale images of the real-time examination were reviewed. FINDINGS: There is a benign coarse calcification right breast at 12 o'clock. There also are small benign cysts right breast at 9 and 11 o'clock. There is a stable 4 mm oval nodule in the right breast at 6 o'clock in the retroareolar region. This oval nodule is hypoechoic. No abnormalities were seen sonographically in the right axilla. IMPRESSION: PROBABLY BENIGN RECOMMENDATION:The stable 4 mm oval nodule in the right breast resembles a complex cyst or a fibroadenoma and is probably benign. A follow-up mammogram and an ultrasound in 6 months is recommended to demonstrate stability. The patient will be due for bilateral mammogram at that time. (04/27/2019) This exam was interpreted at [id number] for [facility]. Michele Chino M.D. ap/:10/26/2018 11:36:14 It Security Manager(s): Jimy Ferrari, [facility] letter sent: BI-RADS 3 Ultrasound BI-RADS: 3 Probably benign 10/26/2018 [facility] Breast Complete Venancio US COMPLETE ULTRASOUND OF BOTH BREASTS AND AXILLA: 03/22/2018 CLINICAL: /F/U bilateral breast masses left LIQ lump. COMPARISON:Comparison is made to exams dated: 03/22/2018 mammogram, 05/12/2016 ultrasound, 05/12/2016 mammogram, 04/28/2016 mammogram, 03/24/2012 mammogram, and 09/21/2013 mammogram - [facility]. TECHNIQUE: Color flow and real-time ultrasound of both breasts four quadrants, retroareolar, and axilla regions were performed. Russell scale images of the real- time examination were reviewed. FINDINGS: There are various sized benign simple and minimally complicated cysts with a circumscribed margin with internal echoes and posterior enhancement left breast that correlate with mammography and ultrasound. There also is a stable benign appearing mass left breast at 1 o'clock that correlates with ultrasound. Additionally, there is a stable benign appearing mass right breast at 6 o'clock. Additionally, there also is a stable benign calcification right breast at 12 o'clock that correlates with mammography and ultrasound. There is a 5 mm oval mass with a circumscribed margin in the right breast at 9 o'clock posterior depth 2 cm from the nipple. This oval mass is hypoechoic with posterior acoustic shadowing. This correlates as an incidental finding. No abnormalities were seen sonographically in either axilla. IMPRESSION: PROBABLY BENIGN The 5 mm oval mass in the right breast most likely is a complicated cyst and is probably benign. A follow-up in 6 months is recommended. Bilateral benign breast cyst and masses. There is no mammographic or sonographic abnormality seen in the left breast to correspond with the palpable abnormality in the lower inner quadrant which is consistent with normal fibroglandular tissue. A follow up right breast ultrasound with possible diagnostic mammogram in 6 months is recommended to demonstrate stability.(09/21/2018) The results were reviewed with the patient. This exam was interpreted at [id number] for [facility]. Narciso Woo M.D. jt/:03/22/2018 13:05:54 It Security Manager(s): Jimy Ferrari, [facility] letter sent: BI-RADS 3 Ultrasound BI-RADS: 3 Probably benign 03/22/2018 [facility] Breast Mammo Diag VENANCIO incl CAD MA BILATERAL DIGITAL DIAGNOSTIC MAMMOGRAM WITH CAD: 03/22/2018 CLINICAL: Bilateral Breast Nodules and left LIQ lump abnormal mammogram, mammographic nodule/density probably benign finding - follow up from 2016 not done. Current study was evaluated with a Computer Aided Detection (CAD) system. COMPARISON:Comparison is made to exams dated: 05/12/2016 mammogram, 04/28/2016 mammogram, 09/21/2013 mammogram, 03/24/2012 mammogram, 02/15/2011 mammogram, and 05/12/2016 ultrasound - [facility]. TECHNIQUE: Mammographic views were obtained using digital acquisition. ePub Directa Version 1.3 was utilized for computer aided detection. FINDINGS: The tissue of both breasts is heterogeneously dense, which could obscure detection of small masses. Scattered densities are noted in both breasts. There is a benign intramammary node in the left breast. There also are benign vascular calcifications and calcifications in both breasts. No significant masses, calcifications, or other findings are seen in either breast. IMPRESSION: INCOMPLETE: NEEDS ADDITIONAL IMAGING EVALUATION RECOMMENDATION:Scattered densities are noted in both breasts. Further evaluation with bilateral ultrasound is recommended. There is no mammographic abnormality seen in the left breast to correspond with the palpable abnormality in the lower inner quadrant, however, ultrasound is recommended. The results were reviewed with the patient. This exam was interpreted at [id number] for [facility]. SUMMARY: Ultrasound will be performed at this time; please see dedicated separate report. Ultrasound will also reevaluate prior probably benign findings. Narciso arnettt/penrad:03/22/2018 13:07:20 It Security Manager(s): Ida Merritt [facility] Mammogram BI-RADS: 0 Indeterminate 03/22/2018 [facility] Abdomen/Pelvis w/wo IV contrast CT PROCEDURE: CT abdomen pelvis with and without contrast. Reconstruction images. INDICATION: - R10.13 Epigastric pain, K21.9 Gastro-esophageal reflux disease without esophagitis,R10.12 Left upper quadrant pain. TECHNIQUE: GI CONTRAST: 900 cc of standard 5% Omnipaque-300 contrast mixture. Axial pre-contrast images were obtained from the lower chest to the symphysis pubis. IV CONTRAST: 100 cc of Omnipaque-300 Axial post-contrast images were obtained from the lower chest to the symphysis pubis. Coronal and sagittal reconstruction images were performed. Total CT radiation dose: DLP = 1034 mGy-cm COMPARISON: CT November 12, 2011. FINDINGS: LOWER CHEST: The visualized lung bases are clear. Normal size of the heart is noted. SOLID ORGANS: No focal hepatic lesion or intrahepatic biliary ductal dilatation is seen. No calcified gallstone is noted. The spleen, pancreas, and adrenal glands are normal in appearance. Both kidneys demonstrate normal corticomedullary phase of enhancement. 11 mm exophytic simple cyst of the right kidney is seen. No urinary calculus or hydronephrosis is noted. Small fat density mass in the left kidney cortical tissue on series 4, image 52 represents a small angiomyolipoma. BOWEL: The small bowel and colon are normal in caliber without wall thickening. A normal appendix is identified. Fat density mass at the ileocecal valve likely represents a lipoma. PERITONEUM: No free intraperitoneal fluid or air. No ventral wall defects. RETROPERITONEUM: Normal caliber of the abdominal aorta is noted. No lymphadenopathy is seen. PELVIS: The visualized urinary bladder wall is normal thickness. Absence of the uterus is noted. Left adnexal soft tissue mass on axial image 128 and coronal image 55 measures 5.0 x 3.1 x 3.7 cm. MUSCULOSKELETAL: No acute osseous abnormality is seen. No destructive lytic or blastic osseous lesion is noted. IMPRESSION: 1. Left adnexal soft tissue mass measure s 5.0 cm. Further evaluation with ultrasound is advised. 2. Right kidney small simple cyst. Tiny left kidney angiomyolipoma. 3. Incidental lipoma at the ileocecal va lve. SL: [id number] 03/10/2018 [facility] Pulmonary Embolism CTA Patient Name: AYLIN LOGAN : 1940; Age: 78 years Female MR: [id number] Study: Chest Pulmonary Embolism CTA 02/23/2018 9:31 AM CDT Clinical Indication: - R06.02 Shortness of breath. Sob and some kind of tickle in throat. CT Radiation Dose DLP 275 mGy-cm IV contrast: 100 cc Omnipaque 350 COMPARISON: Chest x-ray January 05, 2018 TECHNIQUE: Sequential trans-axial images were obtained thru the chest and upper abdomen after administration of iodinated contrast. Coronal and sagittal reconstructions were obtained. 2D and 3D post-processing reconstruction post IV contrast volume rendering images are submitted. FINDINGS: LUNG PARENCHYMA AND PLEURA: There is no significant interstitial lung disease. There are no pleural effusions. There is no pneumothorax. Multiple bilateral breast nodules are noted. AIRWAY: The central airway is normal. MEDIASTINUM: No significant mediastinal lymphadenopathy. HEART: Cardiomegaly with coronary artery calcifications. There is no pericardial effusion. VASCULAR STRUCTURES: The main, right and left pulmonary arteries are normal. The great vessels are normal. The thoracic aorta is free of aneurysm or dissection. The superior vena cava is normal.The pulmonary vasculature is normal. OSSEOUS STRUCTURES: There are no definite significant osseous abnormalities seen. VISUALIZED UPPER ABDOMEN: Small hiatal hernia. IMPRESSION: 1. No evidence of pulmonary emboli. 2. No acute pulmonary process. 3. Bilateral breast nodules. Correlatio n with recent mammography is recommended. SL: [id number] 02/23/2018 [facility] 2 views DX PA and latera l chest: Atherosclerotic calcification in the aortic arch is noted. The cardiomediastinal silhouette, pulmonary vasculature and jean pierre are otherwise within normal limits. The lungs and pleural spaces are clear. There are no significant osseous abnormalities. There is no significant change compared to 05/09/2012. IMPRESSION: No acute radiographic abnormalities in the chest. 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 COMPARISON: Bilateral knee radiographs on 01/26/2017. TECHNIQUE: Standing AP and lateral radiographs of the bilateral knees FINDINGS: Right knee: No acute fracture or malalignment is identified. Mild to moderate medial compartment joint space narrowing. No knee joint effusion is present on either side. No soft tissue abnormality is identified. Left knee: No acute fracture or malalignment is identified. Severe, bkbq-hz-fodm medial compartment joint space narrowing in the left knee. There is associated increased bony sclerosis distal femur condyle and the tibial plateau at this location. No knee joint effusion is present on either side. No soft tissue abnormality is identified. IMPRESSION: 1. Severe left knee osteoarthritis with pydu-qe-haug appearance in the medial compartment. 2. Mild to moderate right knee osteoart hritis. 3. No acute radiographic abnormality. 10/17/2017 [facility] Brain w/wo contrast MRI PATIEN T NAME: AYLIN LOGAN : 1940; Age: 77 years y/o Female MR: [id number] STUDY: Brain w/wo contrast MRI 10/13/2017 12:59 PM WELDER/INSTALLER ORDERING PHYSICIAN: Manjeet Tejeda MD CLINICAL INDICATION: R55 Syncope and collapse, R27.8 Other lack of coordination - R55 Syncope and collapse, R27.8 Other lack of coordination; COMPARISON: March 14, 2012 brain MRI TECHNIQUE : Multiplanar imaging of the brain was obtained both prior to and after uncomplicated IV administration of 15 cc Dotarem. FINDINGS: BRAIN PARENCHYMA: There is no hemorrhage, mass lesion, extra axial collection, cerebral edema, or mass effect. Diffusion sequences are normal. Brain volume is age-appropriate with only mild volume loss most evident in the temporal lobes. There are mild periventricular and subcortical white matter signal abnormalities without mass effect. There prominent VR spaces in the globus pallidus bilaterally. There are no cortical signal abnormalities.The cerebellar tonsils are above foramen magnum. The pituitary gland is age-appropriate. There is no abnormal enhancement. CEREBELLOPONTINE REGIONS AND SKULL BASE: The cerebellopontine angles appear unremarkable. No skull base abnormality is seen. VENTRICLES/SULCI/CISTERNS: The ventricles are normal in size and configuration. The basal cisterns are patent. VISUALIZED VESSELS: Major intracranial flow voids are preserved. ORBITS, VISUALIZED PARANASAL SINUSES AND MASTOIDS: Paranasal sinuses are clear. The mastoid air cells are clear. No orbital pathology is seen. IMPRESSION: Mild age-related generalized volume loss and chronic microvascular ischemia No acute intracranial findings 10/13/2017 [facility] [place] Knee 1-2 Views Bilateral DX Bi lateral knees 2 views each: There is no fracture or dislocation. There is narrowing of the medial tibiofemoral compartment in the left knee with sclerosis of the articular surfaces and marginal spur formation. Small spurs are seen involving the right medial tibiofemoral compartment. There are no other significant osseous, articular or soft tissue abnormalities. There is no significant change compared to the previous bilateral knee radiographs on 09/19/2012. IMPRESSION: Degenerative changes without acute radiographic abnormalities of the knees. [id number] 01/26/2017 [facility] Neck soft tissue w/wo contrast CT EXAMINATION: CT soft tissue neck with and without contrast DATE: 12/28/2016 INDICATION: Localized swelling of the neck. Left-sided jaw pain. FINDINGS: CT of the soft tissue of the neck is performed both before and after intravenous administration of 75 cc Visipaque 320. Postoperative changes of radical mastoidectomy are present on the left side. There is no abnormality in the mastoid bowl. Oral and pharyngeal mucosa is unremarkable. The vocal apparatus is normal. There is no adenopathy. Atherosclerotic changes affect the carotid artery bifurcations with both calcified and noncalcified plaque. There is no flow-limiting stenosis. Teeth are in satisfactory condition. Retention cyst in the floor of the left maxillary sinus. The paranasal sinuses are otherwise clear. Changes of spondylosis are evident with at least moderate stenosis at C5-C6 secondary to posterior disc protrusion. There is narrowing of the temporomandibular joints. No subchondral cyst formation or marginal osteophyte formation is noted. IMPRESSION: Chronic postoperative changes of mastoidectomy on the left side. Unremarkable appearance. Otherwise unremarkable scan for age. 12/28/2016 [facility] Breast Complete Venancio US - BREAS T COMPLETE VENANCIO US ULTRASOUND OF BOTH BREASTS AND BOTH AXILLA: 05/12/2016 CLINICAL: Abnormal mammogram, mammographic nodule/density dense breasts. Comparison is made to exams dated: 05/12/2016 mammogram, 04/28/2016 mammogram, 09/21/2013 mammogram, 03/24/2012 mammogram, 02/15/2011 ultrasound and 02/15/2011 mammogram - [facility]. Color flow and real-time ultrasound of both breasts and both axilla were performed. Russell scale images of the real-time examination were reviewed. For both breasts, all 4 quadrants, the retroareolar region and axilla are evaluated in this exam. There are three small benign cysts left breast at 3 and 11 o'clock and in the sub-areolar depth. There also is a benign calcification right breast at 12 o'clock that correlates with mammography. Additionally there is a small benign oval shaped cyst with a circumscribed margin with internal echoes and posterior enhancement right breast at 11 o'clock. There also is a small benign cyst with a circumscribed margin with internal echoes and posterior enhancement left breast at 10 o'clock that correlates with mammography. There is a 6 mm wider than tall oval mass with a circumscribed margin in the right breast at 6 o'clock posterior depth. This oval mass is hypoechoic. There are calcifications within the mass as seen mammographically. There is a 6 mm oval mass with a circumscribed margin in the left breast at 1 o'clock middle depth 1 cm from the nipple. This oval mass is hypoechoic with internal echoes and posterior acoustic enhancement. This correlates as an incidental finding. Color flow imaging demonstrates that there is no vascularity present. No abnormalities were seen sonographically in either axilla. IMPRESSION: PROBABLY BENIGN - FOLLOW-UP RECOMMENDED The 6 mm wider than tall oval mass in the right breast at 6 o'clock posterior depth resembles a fibroadenoma and is probably benign. A follow-up in 6 months is recommended. The 6 mm oval mass in the left breast at 1 o'clock middle depth resembles a complicated cyst and is probably benign. A follow-up in 6 months is recommended. A follow-up bilateral breast ultrasound in 6 months is recommended to demonstrate stability. The results were reviewed with the patient. Narciso madera/:05/12/2016 11:20:57 It Security Manager: Jimy Ferrari, [facility] This exam was dictated and interpreted by [id number] for [facility]. letter sent: Followup Ultrasound BI-RADS: 3 Probably benign 05/12/2016 [facility] Digital Mammo DX Uni MA - DIGI ASHLEE MAMMO DX UNI MA/L UNILATERAL LEFT DIGITAL DIAGNOSTIC MAMMOGRAM WITH CAD: 05/12/2016 CLINICAL: Mammographic Abnormality dense breasts. Current study was evaluated with a Computer Aided Detection (CAD) system. Comparison is made to exams dated: 04/28/2016 mammogram, 09/21/2013 mammogram, 03/24/2012 mammogram, 02/15/2011 mammogram, 10/31/2009 mammogram and 09/03/2008 mammogram - [facility]. The tissue of the left breast is heterogeneously dense, which could obscure detection of small masses. There are benign vascular calcifications, calcifications and an intramammary node in the left breast. There is a nodule in the left breast at 9 o'clock anterior depth. This correlates with the prior exam. No other significant masses or calcifications are seen in the breast. IMPRESSION: INCOMPLETE: NEEDS ADDITIONAL IMAGING EVALUATION The nodule in the left breast is indeterminate. An ultrasound is recommended. The results were reviewed with the patient. SUMMARY: Ultrasound will be performed at this time; please see dedicated separate report. Bilateral ultrasound will be performed secondary to the patient's increased breast density. Narciso madera/penrad:05/12/2016 11:11:43 It Security Manager: Ida Merritt, [facility] This exam was dictated and interpreted by [id number] for [facility]. Mammogram BI-RADS: 0 Indeterminate 05/12/2016 [facility] Digital Mammo Screening Venancio MA - DIGITAL MAMMO SCREENING VENANCIO MA BILATERAL DIGITAL SCREENING MAMMOGRAM WITH CAD: 04/28/2016 CLINICAL: Other Screening Mammogram. Current study was evaluated with a Computer Aided Detection (CAD) system. Comparison is made to exams dated: 09/21/2013 mammogram, 03/24/2012 mammogram, 02/15/2011 mammogram, 10/31/2009 mammogram and 09/03/2008 mammogram - [facility]. The tissue of both breasts is heterogeneously dense, which could obscure detection of small masses. Patient complains of intermittent breast pain and/or tenderness. There are benign appearing vascular calcifications, calcifications and a nodule in the right breast. There also are benign vascular calcifications, calcifications and an intramammary node in the left breast. There is a nodule in the left breast at 9 o'clock anterior depth. This is more prominent. No other significant masses, calcifications, or other findings are seen in either breast. IMPRESSION: INCOMPLETE: NEEDS ADDITIONAL IMAGING EVALUATION Clinical management of the patient's breast complaints is recommended. The nodule in the left breast is indeterminate. Left diagnostic mammogram with possible ultrasound is recommended (spot compression and lateral views). SUMMARY: As the patient has dense breast parenchyma, this could obscure additional abnormalities. The patient would likely benefit from a supplemental screening test such as bilateral ultrasound. This should be discussed with the patient by the referring physician. Narciso arnettt/:04/28/2016 16:12:29 It Security Manager: Ida Merritt, [facility] This exam was dictated and interpreted by [id number] for [facility]. letter sent: Additional Imaging Mammogram BI-RADS: 0 Indeterminate 04/28/2016 [facility] Knee wo contrast MRI EXAM: MRI of the right knee without contrast INDICATION: M25.561 Pain in right knee COMPARISON: Plain films of the bilateral knees from 09/19/2012 TECHNIQUE: Multiplanar, multisequence magnetic resonance imaging of the right knee was performed without the administration of intravenous gadolinium contrast. FINDINGS: Intercondylar notch: Anterior cruciate ligament and posterior cruciate ligament are intact. Medial compartment: No meniscal tear or chondral defect is seen. Minimal marginal osseous spurring is seen. Medial collateral ligament is intact. Lateral compartment: No meniscal tear is seen. High-grade partial-thickness cartilage fissuring of the far posterior lateral femoral condyle is seen. Lateral collateral ligament complex is intact. Posterolateral corner structures are intact. Patellofemoral compartment: There is no significant chondromalacia. Serpiginous linear hypointense signal abnormality traverses the inferior pole of the patella with adjacent marrow edema, suspicious for subacute, healing, nondisplaced transverse fracture. Mild overlying prepatellar soft tissue edema is seen. Extensor mechanism: Quadriceps tendon is intact. Mild diffuse thickening of the patellar tendon is seen, suggestive of chronic tendinosis. Other findings: Physiologic joint fluid is seen. Scant fluid in the region of the Lin's cyst is seen. IMPRESSION: 1. Subacute-appearing, healing, nondispl aced transverse fracture through the inferior pole of the patella. 2. Mild chronic patellar tendinosis. 3. 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 4. No meniscal, cruciate ligament, or co llateral ligament tear. SL: [id number] 04/15/2016 [facility] Consultation Notes No Data Provided for This Section Discharge Summaries No Data Provided for This Section History and Physicals No Data Provided for This Section Vital Signs Vital Sign Value Date Comments Source Weight 156 03/20/2020 Slava Pearson MD, [place] Heart Rate 77 03/20/2020 Sl[facility] Pearson MD, [place] Diastolic (mm Hg) 80 03/20/2020 Slava Pearson MD, [place] Systolic (mm Hg) 130 03/20/2020 Slava Pearson MD, [place] Weight 155 10/29/2019 Slava Pearson MD, [place] Heart Rate 80 10/29/2019 Slava Pearson MD, [place] Diastolic (mm Hg) 80 10/29/2019 Slava Pearson MD, PA Systolic (mm Hg) 138 10/29/2019 Slava Pearson MD, PA Weight 159 01/08/2019 Slava Pearson MD, PA Heart Rate 69 01/08/2019 Slava Pearson MD, PA Diastolic (mm Hg) 81 01/08/2019 Slava Pearson MD, PA Systolic (mm Hg) 115 01/08/2019 Slava Pearson MD, PA Weight 155 07/10/2018 Slava Pearson MD, PA Heart Rate 66 07/10/2018 Slava Pearson MD, PA Diastolic (mm Hg) 71 07/10/2018 Slava Pearson MD, PA Systolic (mm Hg) 123 07/10/2018 Slava Pearson MD, PA Weight 157 01/06/2018 Slava Pearson MD, PA Heart Rate 77 01/06/2018 Slava Pearson MD, PA Diastolic (mm Hg) 60 01/06/2018 Slava Pearson MD, PA Systolic (mm Hg) 128 01/06/2018 Slava Pearson MD, PA BMI Calculated 27.01 12/07/2017 [facility] Weight 71.364 12/07/2017 [facility] Height 162.56 cm 12/07/2017 [facility] Weight 157 12/07/2017 Slava Pearson MD, PA Heart Rate 70 12/07/2017 Slava Pearson MD, PA Diastolic (mm Hg) 65 12/07/2017 Slava Pearson MD, PA Systolic (mm Hg) 115 12/07/2017 Slava Pearson MD, PA Weight 159 11/24/2017 Slava Pearson MD, PA Heart Rate 66 11/24/2017 Slava Pearson MD, PA Diastolic (mm Hg) 82 11/24/2017 Slava Pearson MD, PA Systolic (mm Hg) 137 11/24/2017 Slava Pearson MD, PA Weight 150 02/15/2017 Slava Pearson MD, PA Heart Rate 67 02/15/2017 Slava Pearson MD, PA Diastolic (mm Hg) 60 02/15/2017 Slava Pearson MD, PA Systolic (mm Hg) 138 02/15/2017 Slava Pearson MD, PA Weight 160 08/11/2016 Slava Pearson MD, PA Heart Rate 81 08/11/2016 Slava Pearson MD, PA Diastolic (mm Hg) 70 08/11/2016 Slava Pearson MD, PA Systolic (mm Hg) 138 08/11/2016 Slava Pearson MD, PA Weight 72.727 07/20/2016 [facility] Height 162.56 cm 07/20/2016 [facility] BMI Calculated 27.52 07/20/2016 [facility] Weight 160 07/09/2016 Slava Pearson MD, PA Heart Rate 52 07/09/2016 Slava Pearson MD, PA Diastolic (mm Hg) 78 07/09/2016 Slava Pearson MD, PA Systolic (mm Hg) 154 07/09/2016 Slava Pearson MD, PA Weight 159 12/26/2015 Slava Pearson MD, PA Heart Rate 57 12/26/2015 Slava Pearson MD, PA Diastolic (mm Hg) 59 12/26/2015 Slava Pearson MD, PA Systolic (mm Hg) 120 12/26/2015 Slava Pearson MD, PA Weight 160 09/02/2015 Slava Pearson MD, PA Heart Rate 80 09/02/2015 Slava Pearson MD, PA Diastolic (mm Hg) 60 09/02/2015 Slava Pearson MD, PA Systolic (mm Hg) 120 09/02/2015 Slava Pearson MD, PA Encounters Location Location Details Encounter Type Encounter Number Reason For Visit Attending Provider ADM Date DC Date Status Source AUDIT [id number] 06/28/2012 06/28/2012 [facility] ECH, Provi jose angel: SEUZAIR, Status: Pen, Time: 10:00 AM [id number] 07/11/20 12 06/28/2012 [facility] EST, Provi jose angel: KRISTIN OLMEDO, Status: Pen, Time: 1:30 PM [id number] 07/28/20 12 06/28/2012 [facility] AUDIT [id number] 08/14/2012 08/14/2012 [facility] AUDIT [id number] 09/06/2012 09/07/2012 [facility] AUDIT [id number] 09/13/2012 09/14/2012 [facility] EST, Provi jose angel: KRISTIN OLMEDO, Status: Pen, Time: 1:00 PM [id number] 01/27/20 13 09/14/2012 [facility] AUDIT [id number] 01/26/2013 01/27/2013 [facility] FUP, Provi jose angel: MANJEET TEJEDA, Status: Pen, Time: 10:30 AM [id number] 02/01/20 13 01/27/2013 [facility] AUDIT [id number] 04/27/2013 04/27/2013 [facility] AUDIT [id number] 05/11/2013 05/11/2013 [facility] EST, Provi jose angel: KRISTIN OLMEDO, Status: Pen, Time: 1:00 PM [id number] 05/28/20 13 04/27/2013 [facility] AUDIT [id number] 07/03/2013 07/03/2013 [facility] AUDIT [id number] 07/23/2013 07/23/2013 [facility] EST, Provi jose angel: KRISTIN OLMEDO, Status: Pen, Time: 2:00 PM [id number] 09/03/19 14 07/23/2013 [facility] AUDIT [id number] 09/11/2013 09/11/2013 [facility] FUP, Provi jose angel: MANJEET TEJEDA, Status: Pen, Time: 9:45 AM [id number] 09/13/19 14 09/11/2013 [facility] AUDIT [id number] 09/13/2013 09/13/2013 [facility] EST, Provi jose angel: KRISTIN OLMEDO, Status: Pen, Time: 11:45 AM [id number] 09/14/2013 09/13/2013 [facility] AUDIT [id number] 09/27/2013 09/27/2013 [facility] AUDIT [id number] 10/05/2013 10/05/2013 [facility] AUDIT [id number] 10/31/2013 10/31/2013 [facility] AUDIT [id number] 11/02/2013 11/02/2013 [facility] AUDIT [id number] 11/14/2013 11/14/2013 [facility] ECL, Provi jose angel: MANJEET TEJEDA, Status: Pen, Time: 10:00 AM [id number] 01/29/20 14 11/14/2013 [facility] EST, Provi jose angel: KRISTIN OLMEDO, Status: Pen, Time: 1:00 PM [id number] 02/05/20 14 11/14/2013 [facility] Slava Pearson MD, PA Follow-Up [id number] 09/02/19 16 09/02/2015 Slava Pearson MD, PA Slava Pearson MD, PA Follow-Up [id number] 09/02/19 16 09/02/2015 Slava Pearson MD, PA Slava Pearson MD, PA Follow-Up [id number] 09/02/19 16 09/02/2015 Slava Pearson MD, PA Slava Pearson MD, PA Follow-Up [id number] 09/02/19 16 09/02/2015 Slava Pearson MD, PA Slava Pearson MD, PA Follow-Up [id number] 09/02/19 16 09/02/2015 Slava Pearson MD, PA Slava Pearson MD, PA carotid & arterial dopplers [id number] 11/27/2015 11/27/2015 Slava Pearson MD, PA Slava Pearson MD, PA carotid & arterial dopplers [id number] 11/27/2015 11/27/2015 Slava Pearson MD, PA Slava Pearson MD, PA carotid & arterial dopplers [id number] 11/27/2015 11/27/2015 Sl[facility] Pearson MD, PA Slava Pearson MD, PA carotid & arterial dopplers [id number] 11/27/2015 11/27/2015 Sl[facility] Pearson MD, PA Slava Pearson MD, PA Follow-Up [id number] 12/26/19 16 12/26/2015 Slava Pearson MD, PA Slava Pearson MD, PA Follow-Up [id number] 12/26/19 16 12/26/2015 Sl[facility] Pearson MD, PA Slava Pearson MD, PA Follow-Up [id number] 12/26/19 16 12/26/2015 Slava Pearson MD, PA [facility] Outpatient [id number] Catalina Mabrymarion 04/15/2016 04/16/2016 [facility] [id number] [facility] 04/28[facility]2016 04/29/2016 [facility] Outpatient [id number] [facility] 05/12/2016 05/13/2016 [facility] Slava Pearson MD, PA echocardiogram [id number] 06/22/2016 06/22/2016 Slava Pearson MD, PA Slava Pearson MD, PA echocardiogram [id number] 06/22/2016 06/22/2016 Slava Pearson MD, PA Slava Pearson MD, PA Follow-Up [id number] 07/09/20 16 07/09/2016 Slava Pearson MD, [facility] Outpatient [id number] Kristin RossCari 07/20/2016 07/21/2016 [facility] Outpatient [id number] Maliha Montemayoran 01/26/2017 01/27/2017 [facility] [place] Out[facility] Di[facility] Services [id number] Manjeet Tejeda 10/13/2017 10/14/2017 [facility] [place] [facility] [place] Out[facility] Di[facility] Services [id number] [facility] 10/17/2017 10/18/2017 [facility] [place] [facility] [place] OP Therapy Patients [id number] [facility] 10/31/2017 11/30/2017 [facility] Outpatient [id number] [facility]2017 12/08/2017 [facility] Outpatient [id number] Pj Edward 01/05/2018 01/06/2018 [facility] Outpatient [id number] Pj Edward 01/14/2018 01/14/2018 [facility] Outpatient [id number] Pj Edward 02/23/2018 02/24/2018 [facility] Outpatient [id number] Trent Bailon 03/10/2018 03/11/2018 [facility] Outpatient [id number] Manjeet Goodine 03/22/2018 03/23/2018 [facility] Outpatient [id number] Manjeet Goodine 10/26/2018 10/27/2018 [facility] Outpatient [id number] Manjeet Goodine 05/21/2019 05/22/2019 [facility] Outpatient [id number] Manjeet Goodine 06/11/2019 06/12/2019 [facility] [place] Outpt Diag Services [id number] Bianka Cutler 09/11/2019 09/12/2019 [facility] [place] Procedures No Data Provided for This Section Assessment and Plan No Data Provided for This Section Plan of Care Plan of Care Date Source [QLH] CMP W/EGFR 01/20/2014 Routine[QLH] TSH, 3RD GENERATION W/REFLEX TO FT4 01/20/2014 Routine[QLH] T3, FREE 01/20/2014 Routine[QLH] T4, FREE 01/20/2014 Routine[QLH] LIPID PANEL 01/20/2014 Routine 11/14/2013 [facility] [QLH] CMP W/EGFR 01/20/2014 Routine[QLH] TSH, 3RD GENERATION W/REFLEX TO FT4 01/20/2014 Routine[QLH] T3, FREE 01/20/2014 Routine[QLH] T4, FREE 01/20/2014 Routine[QLH] LIPID PANEL 01/20/2014 Routine 11/02/2013 [facility] [QLH] CMP W/EGFR 01/20/2014 Routine[QLH] TSH, 3RD GENERATION W/REFLEX TO FT4 01/20/2014 Routine[QLH] T3, FREE 01/20/2014 Routine[QLH] T4, FREE 01/20/2014 Routine[QLH] LIPID PANEL 01/20/2014 Routine 10/31/2013 [facility] [QLH] CMP W/EGFR 01/20/2014 Routine[QLH] TSH, 3RD GENERATION W/REFLEX TO FT4 01/20/2014 Routine[QLH] T3, FREE 01/20/2014 Routine[QLH] T4, FREE 01/20/2014 Routine[QLH] LIPID PANEL 01/20/2014 Routine 10/05/2013 [facility] [QLH] CMP W/EGFR 01/20/2014 Routine[QLH] TSH, 3RD GENERATION W/REFLEX TO FT4 01/20/2014 Routine[QLH] T3, FREE 01/20/2014 Routine[QLH] T4, FREE 01/20/2014 Routine[QLH] LIPID PANEL 01/20/2014 Routine 09/27/2013 [facility] [QLH] CMP W/EGFR 01/20/2014 Routine[QLH] TSH, 3RD GENERATION W/REFLEX TO FT4 01/20/2014 Routine[QLH] T3, FREE 01/20/2014 Routine[QLH] T4, FREE 01/20/2014 Routine[QLH] LIPID PANEL 01/20/2014 Routine 09/13/2013 [facility] Nuclear Test-Adenosine Stress Perfusion 06/21/2012 [id number] Echo complete 06/28/2012 Routine 09/07/2012 [facility] 2D Echo complete 06/28/2012 RoutineNucle ar Test-Adenosine Stress Perfusion 06/21/2012 Routine 08/14/2012 [facility] Nuclear Test-Adenosine Stress Perfusion 06/21/2012 [id number] Echo complete 06/28/2012 RoutineFollow-up visit in 1 month 06/28/2012 Routine 06/28/2012 [facility] Social History Social History Date Source No data available for this section 09/12/2019 [facility] [place] No data available for this section 06/12/2019 [facility] No data available for this section 11/30/2017 [facility] [place] No data available for this section 10/14/2017 [facility] [place] Social History ElementQualifiersDate Rep orted Tobacco Use: . Are you a: former smoker Jul 09, 2016 Do you drink alcohol? . Status: Yes, Type: Socially Jul 09, 2016 07/09/2016 Slava Pearson MD, P A Being A Social Drinker (Active) Activities Of Daily Living (Active) Daily Coffee Consumption (1 Cups/Day) (Active) Marital History - Currently (Active) Former Smoker (V15.82); (Active) Occupation: Retired (Active) 11/14/2013 [facility] Family History Value Date S ource Paternal history of Acute Myocardial Inf arction (V17.3); (Active) Paternal history of Aneurysm Of The Abdominal Aorta (Active) Family history of Coronary Artery Disease (V17.49); (Active) 11/14/2013 [facility] Paternal history of Acute Myocardial Inf arction (V17.3); (Active) Paternal history of Aneurysm Of The Abdominal Aorta (Active) Family history of Coronary Artery Disease (V17.49); (Active) 11/02/2013 [facility] Paternal history of Acute Myocardial Inf arction (V17.3); (Active) Paternal history of Aneurysm Of The Abdominal Aorta (Active) Family history of Coronary Artery Disease (V17.49); (Active) 10/31/2013 [facility] Paternal history of Acute Myocardial Inf arction (V17.3); (Active) Paternal history of Aneurysm Of The Abdominal Aorta (Active) Family history of Coronary Artery Disease (V17.49); (Active) 10/05/2013 [facility] Paternal history of Acute Myocardial Inf arction (V17.3); (Active) Paternal history of Aneurysm Of The Abdominal Aorta (Active) Family history of Coronary Artery Disease (V17.49); (Active) 09/27/2013 [facility] Paternal history of Acute Myocardial Inf arction (V17.3); (Active) Paternal history of Aneurysm Of The Abdominal Aorta (Active) Family history of Coronary Artery Disease (V17.49); (Active) 09/13/2013 [facility] Paternal history of Acute Myocardial Inf arction (V17.3); (Active) Paternal history of Aneurysm Of The Abdominal Aorta (Active) Family history of Coronary Artery Disease (V17.49); (Active) 09/11/2013 [facility] Paternal history of Acute Myocardial Inf arction (V17.3); (Active) Paternal history of Aneurysm Of The Abdominal Aorta (Active) Family history of Coronary Artery Disease (V17.49); (Active) 07/23/2013 [facility] Paternal history of Acute Myocardial Inf arction (V17.3); (Active) Paternal history of Aneurysm Of The Abdominal Aorta (Active) Family history of Coronary Artery Disease (V17.49); (Active) 07/03/2013 [facility] Paternal history of Acute Myocardial Inf arction (V17.3); (Active) Paternal history of Aneurysm Of The Abdominal Aorta (Active) Family history of Coronary Artery Disease (V17.49); (Active) 05/11/2013 [facility] Paternal history of Acute Myocardial Inf arction (V17.3); (Active) Paternal history of Aneurysm Of The Abdominal Aorta (Active) Family history of Coronary Artery Disease (V17.49); (Active) 04/27/2013 [facility] Paternal history of Acute Myocardial Inf arction (V17.3); (Active) Paternal history of Aneurysm Of The Abdominal Aorta (Active) Family history of Coronary Artery Disease (V17.49); (Active) 01/27/2013 [facility] Paternal history of Acute Myocardial Inf arction (V17.3); (Active) Paternal history of Aneurysm Of The Abdominal Aorta (Active) Family history of Coronary Artery Disease (V17.49); (Active) 09/14/2012 [facility] Paternal history of Acute Myocardial Inf arction (V17.3); (Active) Paternal history of Aneurysm Of The Abdominal Aorta (Active) Family history of Coronary Artery Disease (V17.49); (Active) 09/07/2012 [facility] Family history of Coronary Artery Diseas e (V17.49); (Active) Paternal history of Aneurysm Of The Abdominal Aorta (Active) Paternal history of Acute Myocardial Infarction (V17.3); (Active) 08/14/2012 [facility] Paternal history of Acute Myocardial Inf arction (V17.3); (Active) Paternal history of Aneurysm Of The Abdominal Aorta (Active) Family history of Coronary Artery Disease (V17.49); (Active) 06/28/2012 [facility] Advance Directives Order Name Results Value Date Source Advance Directives Advance Dir ectives No Advance Directives available. 11/14/2013 [facility] Advance Directives Advance Dir ectives No Advance Directives available. 11/02/2013 [facility] Advance Directives Advance Dir ectives No Advance Directives available. 10/31/2013 [facility] Advance Directives Advance Dir ectives No Advance Directives available. 10/05/2013 [facility] Advance Directives Advance Dir ectives No Advance Directives available. 09/27/2013 [facility] Advance Directives Advance Dir ectives No Advance Directives available. 09/13/2013 [facility] Advance Directives Advance Dir ectives No Advance Directives available. 09/11/2013 [facility] Advance Directives Advance Dir ectives No Advance Directives available. 07/23/2013 [facility] Advance Directives Advance Dir ectives No Advance Directives available. 07/03/2013 [facility] Advance Directives Advance Dir ectives No Advance Directives available. 05/11/2013 [facility] Advance Directives Advance Dir ectives No Advance Directives available. 04/27/2013 [facility] Advance Directives Advance Dir ectives No Advance Directives available. 01/27/2013 [facility] Advance Directives Advance Dir ectives No Advance Directives available. 09/14/2012 [facility] Advance Directives Advance Dir ectives No Advance Directives available. 09/07/2012 [facility] Advance Directives Advance Dir ectives No Advance Directives available. 08/14/2012 [facility] Advance Directives Advance Dir ectives No Advance Directives available. 06/28/2012 [facility] Functional Status No Data Provided for This Section
--- OUTSIDE RECORDS SUMMARY | 2020-05-03 23:33 | XMS REPORT | Continuity of Care Document ---
Author Author [facility] t Organization [facility] Address [address] [place] [address] Phone Unavailable Care Team Providers Care Bobbin Winder Name Role Phone Cici TEJEDA PCP Brock SCHUMACHER Attphys Unavailable MIGUEL LOYOLA D.O. Attphys Unavailable ALE TEJEDA M.D. Attphys Unavailable CITLALLI RIVAS M.D. Attphys Unavailable Citlalli Rivas Attphys JENNIFER CAM M.D. Attphys Unavailable Lisa Tejeda Attphys JOCELINE LEVY APRN Attphys Unavailable CURT SOL M.D. Attphys Unavailable Karyna Bailon Attphys Pj Edward Attphys SAKINA PELLETIER M.D. Attphys Unavailable ESTHELA BALLARD APRN Attphys Unavailable VAUGHN KINNEY M.D. Attphys Unavailable AMIRA MATOS M.D. Attphys Unavailable Adithya Muñoz Attphys Amira Matos Attphys NILSA CASTRO NP Attphys Unavailable Adore Carlos Attphys Miguel Loyola Attphys Pj Edward Admphys Adithya Muñoz Admphys Adore Carlos Maliha Admphys Payers Payer Name Policy Type Policy Number Effective Date Expiration Date Vikki KIRBY [id number] 2015 00:00:[address] [facility] Medicare A & B [id number] 2003 00:00:[address] [facility] Problems Condition Name Condition Details Condition Category Status Onset Date Resolution Date Last Treatment Date Treating Clinician Comments Source R22.1/R22.0 R22. 1/R22.0 Active 06/06/2019 [facility] Diagnosis Active 2019-06-06 00:00:00 2019-06-11 09:22:00 Britt Isidro DX: ABNORMAL MAMMOGRAM /// BILATERAL DIONNA DX: ABNORMAL MAMMOGRAM /// BILATERAL DIONNA Active 05/04/2019 [facility] Diagnosis Ac tive 2019-05-04 00:00:00 2019-06-07 12:21:00 M poonam Isidro DX: 6 MO F/U, RIGHT BREAST MASS NO IM DX: 6 MO F/U, RIGHT BREAST MASS NO IM Active 10/20/2018 [facility] Diagnosis Ac tive 2018-10-20 00:00:00 2018-10-26 10:29:00 M poonam Isidro N63.0 / R92.2 N63. 0 / R92.2 Active 03/16/2018 [facility] Active 2018-03-16 00:00:00 2018-03-22 10:19:00 Britt Isidro DX: R10.13=EPIGASTRIC PAIN/K21.9=GASTRO- DX: R10.13=EPIGASTRIC PAIN/K21.9=GASTRO- Active 03/08/2018 [facility] Diagnosis Active 2018-03-08 00:00:00 2018-03-10 09:49:00 Britt Isidro R06.02 SHORTNESS OF BREATH R06 .02 SHORTNESS OF BREATH Active 02/16/2018 [facility] Active 2018-02-16 00:00:00 2018-02-23 08:57:00 [facility] FIRST NIGHT 48774 FIRS T NIGHT [address]70 Active 01/11/2018 [facility] Active 2018-01-11 00:00:00 2018-01-13 19:48:00 [facility] CHEST XRAY CHES T XRAY Active 01/05/2018 [facility] Active 2018-01-05 09:30:00 2018-01-05 11:24:00 [facility] 24 HOUR 24 H OUR Active 12/07/2017 [facility] Active 2017-12-07 13:11:00 2017-12-07 13:12:00 [facility] VENANCIO KNEES , OA VENANCIO KNEES , OA Active 10/27/2017 [facility] [place] Diagnosis Active 2017-10-27 08:00:00 2017-11-18 16:20:00 [facility] VENANCIO KNEES VENANCIO KNEES Active 05/22/2017 [facility] [place] Diagnosis Active 2017-05-22 08:00:00 2018-02-11 18:41:00 [facility] XRAYS XRAY S Active 01/26/2017 [facility] Active 2017-01-26 10:10:00 2017-01-26 10:11:00 [facility] MASS MASS Active 05/01/2016 [facility] Active 2016-05-01 00:00:00 2016-05-12 10:05:00 [facility] SCREENING MAMMOGRAM SCRE ENING MAMMOGRAM Active 04/13/2016 [facility] Active 2016-04-13 00:00:00 2016-05-12 09:59:00 [facility] M25.561 PAIN IN RIGHT KNEE M25 .561 PAIN IN RIGHT KNEE Active 04/12/2016 [facility] Active 2016-04-12 00:00:00 2016-04-15 10:04:00 [facility] Back strain Problem Active [facility] History of Diverticulosis History of Diverticulosis Problem Resolved [facility] History of hiatal hernia History of hiatal hernia Problem Resolved [facility] History of Left ventricular hypertrophy History of Left vent ricular hypertrophy Problem Resolved [facility] History of Tricuspid regurgitation History of Tricuspid regurgit ation Problem Resolved [facility] Personal history of cardiac murmur Personal history of cardiac m urmur Problem Resolved [facility] Need for shingles vaccine Need for shingles vaccine Problem Active [facility] Taking multiple medications for chronic disease Taking multiple medications for chronic disease Problem Active [facility] Pre-diabetes Pre-diabetes Problem Active [facility] Advanced care planning/counseling discussion Advanced care planning/counseling discussion Problem Active [facility] Closed displaced comminuted fracture of right patella with delayed healing Closed displaced comminuted fracture of right patella with delayed healing Problem Active [facility] Vitamin B12 deficiency Vitamin B12 deficiency Problem Active [facility] Orthostatic lightheadedness Orthostatic lightheadedness Problem Active [facility] Benign paroxysmal positional vertigo Benign paroxysmal posit ional vertigo Problem Active [facility] Depression [facility] Chronic insomnia Chronic insomnia Problem Active [facility] Stress reaction Stress reaction Problem Active [facility] Insomnia Insomnia Problem Active [facility] Hyperglycemia Hyperglycemia Problem Active [facility] Esophageal reflux Esophageal reflux Problem Active [facility] Chest discomfort Chest discomfort Problem Active [facility] On statin therapy On statin therapy Problem Active [facility] Atherosclerosis Atherosclerosis Problem Active [facility] Encounter for monitoring statin therapy Encounter for monito ring statin therapy Problem Active [facility] Mixed stress and urge urinary incontinence Mixed stres s and urge urinary incontinence Problem Active [facility] Essential (primary) hypertension Essential (primary) hypertensio n Problem Active [facility] Near syncope Near syncope Problem Active [facility] Episodic confusion Episodic confusion Problem Active [facility] Greater trochanteric bursitis of left hip Greater troc hanteric bursitis of left hip Problem Active [facility] Knee osteoarthritis Knee osteoarthritis Problem Active [facility] Intention tremor Intention tremor Problem Active [facility] Chronic pain of left knee Chronic pain of left knee Problem Active [facility] Primary osteoarthritis of both knees Primary osteoarthritis of both knees Problem Active [facility] Limb pain Limb pain Problem [facility] Left knee DJD Left knee DJD Problem Active [facility] Sore throat Sore throat Problem Active 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 Pro blem Active [facility] Grieving Grieving Problem [facility] Shortness of breath on exertion Shortness of breath on exertion Pro blem Active [facility] Elevated hemoglobin A1c Elevated hemoglobin A1c Problem Active [facility] Bilateral breast cysts Bilateral breast cysts Problem Active [facility] Screening for osteoporosis Screening for osteoporosis Problem Active [facility] Mass of left submandibular region Mass of left submandibular reg ion Problem Active [facility] Neck mass Neck mass Problem Active [facility] 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 Problem Active [facility] Encounter to discuss test results Encounter to discuss test resu lts Problem Active [facility] Breast cancer screening Breast cancer screening Problem Active [facility] Nipple discharge in female Nipple discharge in female Problem Active [facility] Acute sialoadenitis Acute sialoadenitis Problem Active [facility] Breast lesion on mammography Breast lesion on mammography Problem Active [facility] Otalgia of left ear Otalgia of left ear Problem Active [facility] Dense breast tissue Dense breast tissue Problem Active [facility] Breast pain in female Breast pain in female Problem Active [facility] BMI 26.0-26.9,adult BMI 26.0-26.9,adult Problem Active [facility] Osteopenia of left hip Osteopenia of left hip Problem Active [facility] UTI (urinary tract infection) UTI (urinary tract infection) Problem Active [facility] Left lower quadrant abdominal tenderness Left lower qu adrant abdominal tenderness Problem Active [facility] Diarrhea, unspecified type Diarrhea, unspecified type Problem Active [facility] Pre-op examination Pre-op examination Problem Active [facility] Seasonal allergic rhinitis Seasonal allergic rhinitis Problem Active [facility] Adult onset hypothyroidism Adult onset hypothyroidism Problem Active [facility] Other hyperlipidemia Other hyperlipidemia Problem Active [facility] Stage 3a chronic kidney disease Stage 3a chronic kidney disease Pro blem Active [facility] 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 At low risk for fall At low risk for fall Problem Active [facility] Standardized adult depression screening tool completed Standardized adult depression screening tool completed Problem Active [facility] No impairment of memory No impairment of memory Problem Active [facility] BMI 27.0-27.9,adult BMI 27.0-27.9,adult Problem Active [facility] Overweight with body mass index (BMI) of 26 to 26.9 in adult Overweight with body mass index (BMI) of 26 to 26.9 in adult Problem Active [facility] Ovarian mass, left Ovarian mass, left Problem Active [facility] Impaired fasting glucose Impaired fasting glucose Problem Active [facility] Tremor of right hand Tremor of right hand Problem Active [facility] Stress reaction, emotional Stress reaction, emotional Problem Active [facility] Encounter for mini-mental status examination Encounter for mini-mental status examination Problem Active [facility] Unsteadiness on feet Unst eadiness on feet 03/07/2018 [facility] [place] Problem 2018-03-07 11:48:[facility] Other lack of coordination Oth er lack of coordination 01/19/2018 [facility] [place] Problem 2018-01-19 16:32:15 [facility] Cerebral ischemia Cere bral ischemia 01/19/2018 [facility] [place] Problem 2018-01-19 16:32:15 [facility] Muscle weakness (generalized) Muscle weakness (generalized) 03/07/2018 [facility] [place] Problem 2018-02 11:48:47 [facility] Unspecified lump in the right breast, unspecified quad rant Unspecified lump in the right breast, unspecified quadrant 05/23/2019 [facility] Problem 2019-05-23 22:40:52 In morial [facility] Solitary cyst of left breast S olitary cyst of left breast 10/09/2018 [facility] Problem 2018-10-09 13:4 8:55 [facility] Epigastric pain Epig astric pain 09/27/2018 [facility] Problem 2018-09-27 14:09:34 [facility] Left upper quadrant pain Left upper quadrant pain 09/27/2018 [facility] Problem 2018-09-27 14:09:34 [facility] Diaphragmatic hernia without obstruction or gangrene Diaphragmatic hernia without obstruction or gangrene 09/27/2018 [facility] Problem 2018-09-27 14:09:34 [facility] Gastritis, unspecified, without bleeding Gastritis, unspecified, without bleeding 09/27/2018 [facility] Problem 2018-09-27 14:09:34 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 09/27/2018 [facility] Problem 2018-09-27 14:09:34 [facility] Benign lipomatous neoplasm of other sites Benign lipomatous neoplasm of other sites 09/27/2018 [facility] Problem 2018-09-27 14:09:34 Britt Isidro Final: Encounter for screening mammogram for malignant neoplasm of breast Final: Encounter for screening mammogram for malignant neoplasm of breast 05/01/2016 [facility] Problem 2016-05-01 00: 40:17 Britt Isidro 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 Angina pectoris Amina na pectoris Active Problem 04/15/2020 Slava Pearson MD, PA Problem Active 2020-04-15 04:10:39 [facility] Bradycardia, unspecified Donavan ycardia, unspecified Active Problem 04/15/2020 Slava Pearson MD, PA Problem Active 2020-04-15 04:10:39 [facility] Dyspnea, unspecified Dysp tressa, unspecified Active Problem 04/15/2020 Slava Pearson MD, PA Problem Active 2020-04-15 04 :10:39 [facility] Palpitations Palp itations Active Diagnosis 04/01/2020 Slava Pearson MD, PA Diagnosis Active 2020-04-01 04:10:26 [facility] Atherosclerotic heart disease of [place] coronary artery with unstable angina pectoris Atherosclerotic heart disease of [place] coronary artery with unstable angina pectoris Active Problem 04/15/2020 Slava Pearson MD, PA Problem Active 2020-04-15 04:10:39 [facility] Preoperative cardiac clearance Preoperative cardiac clearance Active Problem 04/15/2020 Slava Pearson MD, PA Problem Active 2020-04-15 04:10:39 [facility] Chest pain, unspecified Ches t pain, unspecified Active Diagnosis 11/05/2016 Slava Pearson MD, PA Diagnosis Active 2016-11-05 04:10:35 [facility] PVCs PVCs Active Problem 04/15/2020 Slava Pearson MD, PA Problem Active 2020-04-15 04:10:39 [facility] Hypertension Hype rtension Active 11/14/2013 [facility] Problem Active 2013-11-14 21:49:44 Zach rial [facility] Hyperlipidemia Hype rlipidemia Active 11/14/2013 [facility] Problem Active 2013-11-14 21:49:44 [facility] [address] Left Ventricular Hypertrophy L eft Ventricular Hypertrophy Active 09/13/2013 [facility] Problem Active 2013-09-13 16:46:48 [facility] [address] Tricuspid Regurgitation Tric uspid Regurgitation Active 09/13/2013 [facility] Problem Active 2013-09-13 16:46: 48 [facility] Murmurs Murm urs Active 09/13/2013 [facility] Problem Active 2013-09-13 16:46:48 [facility] [place] Chest Pain Or Discomfort Ches t Pain Or Discomfort Active 09/13/2013 [facility] Problem Active 2013-09-13 16:46: 48 [facility] [address] Premature Ventricular Contractions Premature Ventricular Contractions Active 09/13/2013 The patient has a documented episode of a symptomatic PVC while she was having a EKG performed today. Will start Metoprolol Succinate 25mg daily. Will discontinue Amlodipine [facility] Problem Active 2013-09-13 16:46:48 [facility] [address] Hypothyroidism Hypo thyroidism Active 11/14/2013 [facility] Problem Active 2013-11-14 21:49:44 [facility] Plantar Fasciitis Plan tar Fasciitis Active 09/13/2013 [facility] Problem Active 2013-09-13 16:46:48 [facility] [address] Difficulty Breathing (Dyspnea) Difficulty Breathing (Dyspnea) Active 05/11/2013 [facility] Problem Active 2013-05-11 23:15:59 [facility] [address] Fatigue Fati elham Active 05/11/2013 [facility] Problem Active 2013-05-11 23:15:59 [facility] Esophageal Reflux Esop hageal Reflux Active 11/14/2013 [facility] Problem Active 2013-11-14 21:49:44 [facility] [address] Migraine Headache Migr iliana Headache Active 11/14/2013 [facility] Problem Active 2013-11-14 21:49:44 [facility] Tension-type Headache Tens ion-type Headache Active 11/14/2013 [facility] Problem Active 2013-11-14 21:49:44 [facility] PAIN IN RIGHT KNEE PAIN IN RIGHT KNEE Active [facility] Diagnosis Active 2017-01-26 10:11:00 In melvi Isidro ENCNTR SCREEN MAMMOGRAM FOR MALIGNANT NE ENCNTR SCREEN MAMMOGRAM FOR MALIGNANT NE Active [facility] Diagnosis Active 2019-06-07 12:21:00 [facility] UNSPECIFIED LUMP IN BREAST UNS PECIFIED LUMP IN BREAST Active [facility] Diagnosis Active 2016-05-12 10:05:00 [facility] 24 HOLTER 24 H OLTER Active [facility] Diagnosis Active 2016-07-20 14:33:00 Cristin Isidro BRADYCARDIA, UNSPECIFIED DONAVAN YCARDIA, UNSPECIFIED Active [facility] Diagnosis Active 2016-07-20 14:33:00 [facility] UNILATERAL PRIMARY OSTEOARTHRITIS, LEFT UNILATERAL PRIMARY OSTEOARTHRITIS, LEFT Active [facility] Diagnosis Active 2017-01-26 10:11:00 [facility] PAIN IN LEFT KNEE PAIN IN LEFT KNEE Active [facility] Diagnosis Active 2017-01-26 10:11:00 [facility] BILATERAL PRIMARY OSTEOARTHRITIS OF KNEE BILATERAL PRIMARY OSTEOARTHRITIS OF KNEE Active [facility] [place] Diagnosis Active 2017-11-18 16:20:00 [facility] MUSCLE WEAKNESS (GENERALIZED) MUSCLE WEAKNESS (GENERALIZED) Active [facility] [place] Diagnosis Active 03-24-30 16:20:00 [facility] STIFFNESS OF UNSPECIFIED JOINT, NOT ELSE STIFFNESS OF UNSPECIFIED JOINT, NOT ELSE Active [facility] [place] Diagnosis Active 2017-11-18 16:20:00 [facility] [address] UNSTEADINESS ON FEET UNST EADINESS ON FEET Active [facility] [place] Diagnosis Active 2017-11-18 16:20:00 In melvi Isidro OBSTRUCTIVE SLEEP APNEA (ADULT) (PEDIATR OBSTRUCTIVE SLEEP APNEA (ADULT) (PEDIATR Active [facility] Diagnosis Active 2018-01-13 19:48:00 [facility] SHORTNESS OF BREATH SHOR TNESS OF BREATH Active [facility] Diagnosis Active 2018-02-23 08:57:00 In melvi Isidro DIZZINESS AND GIDDINESS DIZZ INESS AND GIDDINESS Active [facility] Diagnosis Active 2017-12-07 13:12:00 [facility] EPIGASTRIC PAIN EPIG ASTRIC PAIN Active [facility] Diagnosis Active 2018-03-10 09:49:00 [facility] GASTRO-ESOPHAGEAL REFLUX DISEASE WITHOUT GASTRO- ESOPHAGEAL REFLUX DISEASE WITHOUT Active [facility] Diagnosis Active 2018-03-10 09:49:00 [facility] LEFT UPPER QUADRANT PAIN LEFT UPPER QUADRANT PAIN Active [facility] Active 2018-03-10 09:49:00 [facility] INCONCLUSIVE MAMMOGRAM INCO NCLUSIVE MAMMOGRAM Active [facility] Active 2019-05-21 09:53:00 M [facility] UNSPECIFIED LUMP IN UNSPECIFIED BREAST UNSPECIFIED LUMP IN UNSPECIFIED BREAST Active [facility] Active 2018-10-26 10:29:00 [facility] OTH ABN AND INCONCLUSIVE FINDINGS ON DX OTH ABN AND INCONCLUSIVE FINDINGS ON DX Active [facility] Active 2019-05-21 09:53:00 [facility] UNSPECIFIED LUMP IN THE LEFT BREAST, UNS UNSPECIFIED LUMP IN THE LEFT BREAST, UNS Active [facility] Active 2019-05-21 09:53:00 [facility] UNSPECIFIED LUMP IN THE RIGHT BREAST, UN UNSPECIFIED LUMP IN THE RIGHT BREAST, UN Active [facility] Active 2019-05-08 14:13:00 [facility] OT DISRD OF BONE DENSITY AND STRUCTURE, OT DISRD OF BONE DENSITY AND STRUCTURE, Active [facility] Active 2019-05-21 10:03:00 [facility] ENCOUNTER FOR SCREENING FOR OSTEOPOROSIS ENCOUNTER FOR SCREENING FOR OSTEOPOROSIS Active [facility] Active 2019-05-21 10:03:00 [facility] LOCALIZED SWELLING, MASS AND LUMP, NECK LOCALIZED SWELLING, MASS AND LUMP, NECK Active [facility] Active 2019-06-11 09:22:00 [facility] LOCALIZED SWELLING, MASS AND LUMP, HEAD LOCALIZED SWELLING, MASS AND LUMP, HEAD Active [facility] Diagnosis Active 2019-06-11 09:22:00 [facility] Allergies, Adverse Reactions, Alerts Allergy Name Allergy Type Status Severity Reaction(s) Onset Date Inacti ve Date Treating Clinician Comments Source Streptozocin Streptozocin Active Info Not Available 2020-03-20 00: 00:00 [facility] Codeine Sulfate Codeine Sulfate Active Info Not Available 2020-03-20 00:00:00 [facility] codeine DA Active U 2019-10-30 00:00:00 [facility] streptomycin DA Active PA 2019-10-30 00:00:00 [facility] streptomycin DA Active SV 2018-08-07 00:00:00 [facility] Penicillins DA Active SV 2017-11-29 00:00:00 [facility] CODINE DA Active SV 2017-11-29 00:00:00 [facility] Cipro TABS Allergy to drug (finding) Active [facility] Penicillins Allergy to drug (finding) Active [facility] Streptomycin Sulfate SOLR Allergy to drug (finding) Active [facility] Codeine Sulfate SOLN Allergy to drug (finding) Active [facility] penicillin penicillin Active [facility] streptomycin streptomycin [facility] Penicillins Penicillins Active [facility] Cipro TABS Cipro TABS Active Me [facility] Streptomycin Sulfate SOLR Streptomycin Sulfate SOLR Active [facility] Family History Family Member Diagnosis Comments Start Date Stop Date Source Unknown Family Member Family history of Coronary Artery Disease Family History [facility] Unknown Family Member Family History 2012-06-28 21:24:47 2 21:24:47 Britt Isidro Father Family history of Acute Myocardial Infarction [facility] Father Family history of Aneurysm Of Abdominal Aorta [facility] Social History Social Habit Start Date Stop Date Quantity Comments Source TobaccoUse: 2016-07-09 00:00:00 2016-07-09 00:00:00 [facility] Social History 2013-11-14 21:49:44 2013-11-14 21:49:44 Britt [place] Sex Ass[birth year] At 1940 00:00:00 1940 00:00:00 Female [facility] Smoking Status Start Date Stop Date Source Ex-smoker (finding) [facility] Medications Ordered Medication Name Filled Medication Name Start Date Stop Da te Current Medication? Ordering Clinician Indication Dosage Frequency Signature (SIG) Comments Components Source Cyclobenzaprine Hcl (Flexeril) 5 Mg TABLET Cyclobenzap rine Hcl (Flexeril) 5 Mg TABLET 2020-05-03 23:09:00 Yes 10 Ever y 8 Hours as needed for Muscle Spasms [facility] Ibuprofen Ibuprofen 2020-05-03 23:09:00 Yes 600 Every 6 Hours as needed for Moderate Pain (4-6) [facility] Montelukast Sodium 10 MG Oral Tablet Montelukast Sodium 10 M G Oral Tablet 2020-04-24 00:00:00 Yes MIGUEL LOYOLA D.O. TAKE 1 TABLET BY MOUTH EVERY DAY [facility] Nitrostat 2020-04-01 04:10:26 Yes Haytham Al-Azzeh 1 tablet [facility] Aspirin 2020-04-01 04:10:26 Yes Haytham Al-Azzeh 1 tablet [facility] Antivert 2020-04-01 04:10:26 Yes Haytham Al-Azzeh 1 tablet as needed [facility] Lisinopril 2020-04-01 04:10:26 Yes Haytham Al-Azzeh TAKE ONE TABLET BY MOUTH ONCE DAILY [facility] Atorvastatin Calcium 2020-04-01 04:10:26 Yes Haytham Al- Azzeh 1 tablet [facility] Pantoprazole Sodium 2020-04-01 04:10:26 Yes Haytham Al-Azzeh 1 tablet [facility] Myrbetriq 2020-04-01 04:10:26 Yes Haytham Al-Azzeh 1 tablet [facility] Synthroid 2020-04-01 04:10:26 Yes Haytham Al-Azzeh 1 tablet [facility] Lansoprazole 2020-04-01 04:10:26 Yes Haytham Al-Azzeh 1 tablet [facility] Cephalexin 2020-04-01 04:10:26 Yes Haytham Al-Azzeh 1 capsule [facility] Omnipaque 300 injectable solution 2019-06-11 16:00:00 Yes Notes: (Same as:Omnipaque 300). WASTE: F/P - Black; E - [facility] Lisinopril 5 MG Oral Tablet Lisinopril 5 MG Oral Tablet 2018-11-29 00:00:00 Yes ALE TEJEDA M.D. 1 QD TAKE 1 TABLET BY MOUTH ONCE DAILY [facility] Shingrix 50 MCG Intramuscular Suspension Reconstituted Shingrix 50 MCG Intramuscular Suspension Reconstituted 2018-10-30 00:00:00 Yes ALE TEJEDA M.D. .5 INJECT 0.5 ML Intramuscular [facility] Omnipaque 300 injectable solution 2018-03-10 16:00:00 No Notes: (Same as:Omnipaque 300). WASTE: F/P - Black; E - [facility] Omnipaque 350 2018-02-23 18:39:00 No Notes: (same as:Omnipaque 350). WASTE: F/P - Black; E - [facility] Nitrostat 2017-04-16 04:10:13 Yes Haytham Al-Azzeh 1 tablet [facility] Aspirin 2017-04-16 04:10:13 Yes Haytham Al-Azzeh 1 tablet [facility] Pantoprazole Sodium 2017-04-16 04:10:13 Yes Haytham Al-Azzeh 1 tablet [facility] Synthroid 2017-04-16 04:10:13 Yes Haytham Al-Azzeh 1 tablet [facility] Myrbetriq 2017-04-16 04:10:13 Yes Haytham Al-Azzeh 1 tablet [facility] Atorvastatin Calcium 2017-04-16 04:10:13 Yes Haytham Al- Azzeh 1 tablet [facility] Antivert 2017-04-16 04:10:13 Yes Haytham Al-Azzeh 1 tablet as needed [facility] Metoprolol Succinate ER 2016-09-16 05:14:17 No Haytham Al-Azzeh 1 tablet [facility] Lisinopril 2016-08-11 00:00:00 Yes Haytham Al-Azzeh 1 tablet [facility] Amlodipine Besylate 2016-07-09 00:00:00 Yes Haytham Al-Azzeh 1 tablet [facility] Amlodipine Besylate 2016-07-09 00:00:00 Yes Haytham Al-Azzeh 1 tablet [facility] Myrbetriq 2015-09-27 05:36:19 Yes Haytham Al-Azzeh 1 tablet [facility] Antivert 2015-06-02 00:00:00 Yes Haytham Al-Azzeh 1 tablet as needed [facility] Antivert 2015-06-02 00:00:00 Yes Haytham Al-Azzeh 1 tablet as needed [facility] Synthroid 50 MCG Oral Tablet Synthroid 50 MCG Oral Tablet 2015-02-20 00:00:00 Yes ALE TEJEDA M.D. TAKE ONE TABLET BY MOUTH FIVE DAYS A WEEK AND NONE ON TUESDAY AND TUESDAY [facility] Atorvastatin Calcium 10 MG Oral Tablet Atorvastatin Calcium 10 MG Oral Tablet 2014-05-15 00:00:00 Yes ALE TEJEDA M.D. TAKE 1 TABLET BY MOUTH ONCE DAILY [facility] Calcium 600 MG Oral Tablet 2013-11-14 21:49:44 Yes (Active) [facility] Sucralfate 1 GM Oral Tablet 2013-11-14 21:49:44 Yes (Active) Britt Isidro Pantoprazole Sodium 40 MG Oral Tablet Delayed Release 2013-11-14 21:49:44 Yes (Active) Britt Redd nn Atorvastatin Calcium 10 MG Oral Tablet 2013-11-14 21:49:44 Yes (Active) Britt Isidro Aspirin 81 MG Oral Tablet 2013-11-14 21:49:44 Yes (Active) Britt Isidro Vitamin B12 TABS 2013-11-14 21:49:44 Yes (A ctive) Britt Isidro Synthroid 50 MCG Oral Tablet 2013-11-14 21:49:44 Yes (Active) Britt Isidro Voltaren GEL 2013-11-14 21:49:44 Yes (Activ e) Britt Isidro Naproxen Sodium 550 MG Oral Tablet 2013-09-26 06:00:00 Yes ; Start Date: 09/26/2013; End Date: 10/26/2013 (Active) Britt Isidro Amitriptyline HCl 10 MG Oral Tablet 2013-09-26 06:00:00 Yes ; Start Date: 09/26/2013; End Date: (Active) Britt Isidro Meclizine HCl 12.5 MG Oral Tablet 2013-09-13 16:46:48 Yes (Active) Britt Isidro Levoxyl 50 MCG TABS 2013-09-11 06:30:17 Yes (Active) Britt Isidro Naproxen 375 MG Oral Tablet 2013-07-25 06:00:00 Yes ; Start Date: 07/25/2013 (Active) Britt Isidro PredniSONE 20 MG Oral Tablet 2013-07-25 06:00:00 Yes ; Start Date: 07/25/2013 (Active) Britt Isidro Metoprolol Succinate ER 25 MG Oral Tablet Extended Release 2 4 Hour 2013-07-03 06:00:00 Yes ; Start Date: 3; End Date: (Active) Britt Isidro Levoxyl 50 MCG Oral Tablet 2012-09-14 02:59:38 Yes (Active) Britt Isidro Enablex 15 MG Oral Tablet Extended Release 24 Hour 2012-08 02:59:38 Yes (Active) [facility] Erika bundy AmLODIPine Besylate 2.5 MG Oral Tablet 2012-09-14 02:59:38 Yes (Active) Britt Isidro Nitrostat 0.4 MG Sublingual Tablet Sublingual 2012-06-28 06:00:0 0 Yes ; Start Date: 06/28/2012; End Date: (Active) Britt Isidro Nitrostat 0.4 MG Sublingual Tablet Sublingual Nitrosta t 0.4 MG Sublingual Tablet Sublingual 2012-06-28 00:00:00 Yes BERTHA MUÑOZ M.D. PLACE 1 TABLET UNDER THE TONGUE EVERY 5 MINUTES UP TO 3 DOSES NEEDED FOR CHEST PAIN. [facility] AmLODIPine Besylate 2.5 MG Oral Tablet Yes ; Start Date: ; End Date: (Active) [facility] Atorvastatin Calcium 10 MG Oral Tablet Yes ; Start Date: ; End Date: (Active) [facility] Pantoprazole Sodium 40 MG Oral Tablet Delayed Release Yes ; Start Date: ; End Date: 08/1899 (Active) [facility] Calcium 600 MG Oral Tablet Calcium 600 MG Oral Tablet Yes 1 QD TAKE 1 TABLET DAILY. [facility] B-12 500 MCG Oral Tablet B-12 500 MCG Oral Tablet Yes 1 QD TAKE 1 TABLET DAILY. [facility] Vitamin C 1000 MG Oral Tablet Vitamin C 1000 MG Oral Tablet Yes 1 QD TAKE 1 TABLET DAILY. [facility] Myrbetriq 25 MG Oral Tablet Extended Release 24 Hour M yrbetriq 25 MG Oral Tablet Extended Release 24 Hour Yes 1 TAKE 1 TABLET BEDTIME [facility] Cranberry 500 MG Oral Capsule Cranberry 500 MG Oral Capsule Yes 1 QD TAKE 1 CAPSULE DAILY [facility] Cinnamon CAPS Cinnamon CAPS Yes [facility] Align CAPS Align CAPS Yes [facility] Focused Mind CAPS Focused Mind CAPS Yes [facility] ZyrTEC Allergy CAPS ZyrTEC Allergy CAPS Yes [facility] Immunizations Ordered Immunization Name Filled Immunization Name Date Status Comments Source Fluzone High-Dose 0.5 ML Intramuscular Suspension Prefilled Syringe 2019-05-24 11:18:00 Completed [facility] Influenza 2018-05-22 00:00:00 Completed [facility] Fluzone High-Dose 0.5 ML Intramuscular Suspension Prefilled Syringe 2017-05-26 10:58:00 Completed [facility] Fluzone Quadrivalent 0.5 ML Intramuscular Suspension 2016-05-24 00:00:00 Completed [facility] Fluzone Quadrivalent 0.5 ML Intramuscular Suspension 2015-06-05 10:29:00 Completed [facility] Prevnar 13 Intramuscular Suspension 2015-01-29 11:17:00 Co mpleted [facility] Influenza 2014-05-22 00:00:00 Completed [facility] Influenza 2013-06-06 00:00:00 Completed [facility] Tdap 2011-07-14 00:00:00 Completed [facility] Pneumococcal polysaccharide vaccine, 23 valent 2005-06 00:00:00 Completed [facility] Tdap Unknown Completed [facility] Vital Signs Vital Name Observation Time Observation Value Comments Source Weight 2020-05-03 20:20:00 155 [lb_av] [facility] BMI (Body Mass Index) 2020-05-03 20:20:00 26.6 kg/m2 [facility] Systolic blood pressure 2020-04-24 08:37:00 145 mm[Hg] Loca tion: RUE; Position: Sitting [facility] Diastolic blood pressure 2020-04-24 08:37:00 78 mm[Hg] Loc ation: RUE; Position: Sitting [facility] Heart Rate 2020-04-24 08:37:00 70 /min [facility] Systolic blood pressure 2020-04-24 08:36:00 153 mm[Hg] Loca tion: LUE; Position: Sitting [facility] Diastolic blood pressure 2020-04-24 08:36:00 80 mm[Hg] Loc ation: LUE; Position: Sitting [facility] Heart Rate 2020-04-24 08:36:00 72 /min [facility] Body height 2020-04-24 08:36:00 64 [in_us] [facility] Weight 2020-04-24 08:36:00 156 [lb_av] [facility] Body mass index (BMI) [Ratio] 2020-04-24 08:36:00 26.78 kg/m2 [facility] Body temperature 2020-04-24 08:36:00 98.1 [degF] [facility] Respiratory rate 2020-04-24 08:36:00 16 /min [facility] Weight 2020-04-10 09:04:00 155 [lb_av] [facility] Body mass index (BMI) [Ratio] 2020-04-10 09:04:00 26.61 kg/m2 [facility] Weight 2020-03-20 15:30:00 [facility] [place] Heart Rate 2020-03-20 15:30:00 [facility] Diastolic (mm Hg) 2020-03-20 15:30:00 [facility] Systolic (mm Hg) 2020-03-20 15:30:00 Zach rial [place] Weight 2019-10-29 16:30:00 [facility] Heart Rate 2019-10-29 16:30:00 [facility] [place] Diastolic (mm Hg) 2019-10-29 16:30:00 Mem [facility] [place] Systolic (mm Hg) 2019-10-29 16:30:00 Zach ria [place] Systolic blood pressure 2019-10-26 09:01:00 120 mm[Hg] Loca tion: LUE; Position: Sitting [facility] Diastolic blood pressure 2019-10-26 09:01:00 70 mm[Hg] Loc ation: LUE; Position: Sitting [facility] Systolic blood pressure 2019-10-26 09:00:00 97 mm[Hg] Loca tion: LUE; Position: Sitting [facility] Diastolic blood pressure 2019-10-26 09:00:00 65 mm[Hg] Loc ation: LUE; Position: Sitting [facility] Weight 2019-10-26 09:00:00 156.0625 [lb_av] [facility] Body mass index (BMI) [Ratio] 2019-10-26 09:00:00 26.79 kg/m2 [facility] Body height 2019-10-26 09:00:00 64 [in_us] [facility] Heart Rate 2019-10-26 09:00:00 75 /min [facility] Respiratory rate 2019-10-26 09:00:00 16 /min [facility] Body temperature 2019-10-26 09:00:00 98.2 [degF] Method: Temporal [facility] BP Systolic 2019-09-11 11:42:00 126 mm[Hg] Location: MONY Positi on: Sitting [facility] BP Diastolic 2019-09-11 11:42:00 69 mm[Hg] Location: JYOTI; Positi on: Sitting [facility] Height 2019-09-11 11:42:00 64 [in_us] [facility] Weight 2019-09-11 11:42:00 157.3125 [lb_av] [facility] Body Mass Index Calculated 2019-09-11 11:42:00 27 kg/m2 [facility] Temperature 2019-09-11 11:42:00 98.5 [degF] Method: Temporal [facility] Heart Rate 2019-09-11 11:42:00 68 /min [facility] Respiration Rate 2019-09-11 11:42:00 15 /min Quality: [facility] BP Systolic 2019-06-26 10:15:00 150 mm[Hg] [facility] BP Diastolic 2019-06-26 10:15:00 83 mm[Hg] [facility] Height 2019-06-26 10:15:00 64 [in_us] [facility] Weight 2019-06-26 10:15:00 158.125 [lb_av] [facility] Body Mass Index Calculated 2019-06-26 10:15:00 27.14 kg/m2 [facility] Heart Rate 2019-06-26 10:15:00 69 /min [facility] BP Systolic 2019-06-04 08:09:00 138 mm[Hg] Location: JYOTI; Positi on: Sitting [facility] BP Diastolic 2019-06-04 08:09:00 80 mm[Hg] Location: MONY Positi on: Sitting [facility] Height 2019-06-04 08:09:00 64 [in_us] [facility] Weight 2019-06-04 08:09:00 163 [lb_av] [facility] Body Mass Index Calculated 2019-06-04 08:09:00 27.98 kg/m2 [facility] Temperature 2019-06-04 08:09:00 96.2 [degF] Method: Temporal [facility] Heart Rate 2019-06-04 08:09:00 73 /min Location: L Radial; [facility] Respiration Rate 2019-06-04 08:09:00 16 /min Quality: Normal [facility] BP Systolic 2019-05-24 11:10:00 113 mm[Hg] Location: JYOTI; Positi on: Sitting [facility] BP Diastolic 2019-05-24 11:10:00 68 mm[Hg] Location: JOSEE; Positi on: Sitting [facility] Height 2019-05-24 11:10:00 64 [in_us] [facility] Weight 2019-05-24 11:10:00 155.6 [lb_av] [facility] Body Mass Index Calculated 2019-05-24 11:10:00 26.71 kg/m2 [facility] Temperature 2019-05-24 11:10:00 98.7 [degF] Method: Temporal [facility] Heart Rate 2019-05-24 11:10:00 68 /min Location: L Radial; [facility] Respiration Rate 2019-05-24 11:10:00 16 /min Quality: Normal [facility] BP Systolic 2019-05-14 11:11:00 120 mm[Hg] Location: JYOTI; Positi on: Sitting [facility] BP Diastolic 2019-05-14 11:11:00 72 mm[Hg] Location: JYOTI; Positi on: Sitting [facility] Height 2019-05-14 11:11:00 64 [in_us] [facility] Weight 2019-05-14 11:11:00 157.9 [lb_av] [facility] Body Mass Index Calculated 2019-05-14 11:11:00 27.1 kg/m2 [facility] Temperature 2019-05-14 11:11:00 98.2 [degF] Method: Temporal [facility] Heart Rate 2019-05-14 11:11:00 62 /min Location: L Radial; [facility] Respiration Rate 2019-05-14 11:11:00 16 /min Quality: Normal [facility] Weight 2019-01-08 15:00:00 [facility] Heart Rate 2019-01-08 15:00:00 [facility] Diastolic (mm Hg) 2019-01-08 15:00:00 Mem adarsh [place] Systolic (mm Hg) 2019-01-08 15:00:00 Zach ireland [place] BP Systolic 2018-10-30 15:10:00 130 mm[Hg] Location: JYOTI; Positi on: Sitting [facility] BP Diastolic 2018-10-30 15:10:00 75 mm[Hg] Location: JYOTI; Positi on: Sitting [facility] Height 2018-10-30 15:10:00 64 [in_us] [facility] Weight 2018-10-30 15:10:00 157.5 [lb_av] [facility] Body Mass Index Calculated 2018-10-30 15:10:00 27.03 kg/m2 [facility] Temperature 2018-10-30 15:10:00 98.7 [degF] Method[facility] 2018-10-30 15:10:00 65 /min Location: L Radial; [facility] Respiration Rate 2018-10-30 15:10:00 16 /min Quality: Normal [facility] BP Systolic 2018-09-13 11:30:00 134 mm[Hg] Location: JYOTI; Positi on: Sitting [facility] BP Diastolic 2018-09-13 11:30:00 80 mm[Hg] Location: JYOTI; Positi on: Sitting [facility] Height 2018-09-13 11:30:00 64 [in_us] [facility] Weight 2018-09-13 11:30:00 158.5 [lb_av] [facility] Body Mass Index Calculated 2018-09-13 11:30:00 27.21 kg/m2 [facility] Temperature 2018-09-13 11:30:00 98.3 [degF] Method: Temporal [facility] Heart Rate 2018-09-13 11:30:00 80 /min Location: L Brachial Artery; [facility] Respiration Rate 2018-09-13 11:30:00 16 /min Quality: Normal [facility] Weight 2018-07-10 17:00:00 [facility] Heart Rate 2018-07-10 17:00:00 [facility] [place] Diastolic (mm Hg) 2018-07-10 17:00:00 Mem orial [place] Systolic (mm Hg) 2018-07-10 17:00:00 Zach domoniquel [place] BP Systolic 2018-05-01 13:31:00 110 mm[Hg] Location: LUE; Positi on: Sitting [facility] BP Diastolic 2018-05-01 13:31:00 69 mm[Hg] Location: JOESE; Positi on: Sitting [facility] Height 2018-05-01 13:31:00 64 [in_us] [facility] Weight 2018-05-01 13:31:00 157 [lb_av] [facility] Body Mass Index Calculated 2018-05-01 13:31:00 26.95 kg/m2 [facility] Temperature 2018-05-01 13:31:00 99.1 [degF] Method: Temporal [facility] Heart Rate 2018-05-01 13:31:00 76 /min [facility] Respiration Rate 2018-05-01 13:31:00 16 /min [facility] BP Systolic 2018-01-25 07:49:00 141 mm[Hg] Location: LUE; Positi on: Sitting [facility] BP Diastolic 2018-01-25 07:49:00 71 mm[Hg] Location: JYOTI; Positi on: Sitting [facility] Height 2018-01-25 07:49:00 64 [in_us] [facility] Weight 2018-01-25 07:49:00 157 [lb_av] [facility] Body Mass Index Calculated 2018-01-25 07:49:00 26.95 kg/m2 [facility] Temperature 2018-01-25 07:49:00 97.9 [degF] Method: Temporal [facility] Heart Rate 2018-01-25 07:49:00 76 /min [facility] Respiration Rate 2018-01-25 07:49:00 16 /min [facility] Weight 2018-01-06 20:00:00 [facility] Heart Rate 2018-01-06 20:00:00 [facility] [place] Diastolic (mm Hg) 2018-01-06 20:00:00 Mem o[facility] [place] Systolic (mm Hg) 2018-01-06 20:00:00 Zach domoniquel [place] BMI Calculated 2017-12-07 18:36:00 Memori al [place] Weight 2017-12-07 18:36:00 [facility] Height 2017-12-07 18:36:00 162.56 cm [facility] Weight 2017-12-07 16:15:00 [facility] Heart Rate 2017-12-07 16:15:00 [facility] Diastolic (mm Hg) 2017-12-07 16:15:00 Mem [facility] [place] Systolic (mm Hg) 2017-12-07 16:15:00 Zach rial [place] Weight 2017-11-24 16:30:00 [facility] Heart Rate 2017-11-24 16:30:00 [facility] [place] Diastolic (mm Hg) 2017-11-24 16:30:00 Mem orial [place] Systolic (mm Hg) 2017-11-24 16:30:00 Zach rial [place] Weight 2017-02-15 19:15:00 [facility] [place] Heart Rate 2017-02-15 19:15:00 [facility] Diastolic (mm Hg) 2017-02-15 19:15:00 Mem [facility] [place] Systolic (mm Hg) 2017-02-15 19:15:00 Zach rial [place] Weight 2016-08-11 15:45:00 [facility] [place] Heart Rate 2016-08-11 15:45:00 [facility] [place] Diastolic (mm Hg) 2016-08-11 15:45:00 Mem o[facility] [place] Systolic (mm Hg) 2016-08-11 15:45:00 Zach rial [place] Weight 2016-07-20 21:14:00 [facility] Height 2016-07-20 21:14:00 162.56 cm [facility] [place] BMI Calculated 2016-07-20 21:14:00 Memori al [place] Weight 2016-07-09 20:00:00 [facility] Heart Rate 2016-07-09 20:00:00 [facility] Diastolic (mm Hg) 2016-07-09 20:00:00 Mem orial [place] Systolic (mm Hg) 2016-07-09 20:00:00 Zach rial [place] Weight 2015-12-26 18:30:00 [facility] [place] Heart Rate 2015-12-26 18:30:00 [facility] [place] Diastolic (mm Hg) 2015-12-26 18:30:00 Mem [facility] [place] Systolic (mm Hg) 2015-12-26 18:30:00 Zach [facility] Weight 2015-09-02 20:00:00 [facility] Heart Rate 2015-09-02 20:00:00 [facility] [place] Diastolic (mm Hg) 2015-09-02 20:00:00 [facility] [place] Systolic (mm Hg) 2015-09-02 20:00:00 Zach [facility] [place] Procedures Procedure Date / Time Performed Performing Clinician Kristen webb MA Digital Mammo Screening Venancio [id number] 2020-04-10 00:00:00 [facility] [QL] TSH, 3RD GENERATION W/REFLEX TO FT4 2020-04-10 00:00:00 [facility] [QL] CMP W/EGFR 2020-04-10 00:00:00 [facility] [QL] CBC (INCLUDES DIFF/PLT) 2020-04-10 00:00:00 [facility] [QL] HEMOGLOBIN A1c 2020-04-10 00:00:00 [facility] [Q] LIPID PANEL WITH REFLEX TO DIRECT LDL 2020-04-10 00:00:00 [facility] [QL] CMP W/EGFR 2020-03-28 00:00:00 [facility] [QL] TSH, 3RD GENERATION 2020-03-28 00:00:00 [facility] [QL] T4, FREE 2020-03-28 00:00:00 [facility] [Q] LIPID PANEL WITH REFLEX TO DIRECT LDL 2020-03-28 00:00:00 [facility] [QL] VITAMIN D, 25-HYDROXY, LC/MS/MS 2020-03-28 00:00:00 [facility] [QL] PHOSPHATE ( PHOSPHORUS) 2020-03-28 00:00:00 [facility] [QLH] CBC (INCLUDES DIFF/PLT) 2019-10-26 00:00:00 [facility] [[facility]] BASIC METABOLIC PANEL W/EGFR 2019-10-26 00:00:00 [facility] [QL] PROTHROMBIN TIME-INR 2019-10-26 00:00:00 [facility] [QLH] TISSUE TRANSGLUTAMINASE ANTIBODY, IGA 2019-09-13 00:00:00 [facility] [Q] CULTURE, STOOL, LOLIS/SHIG/CAMPY AND SHIGA TOXINS EI A W/RFL E.COLI O157 CULT 2019-09-13 00:00:00 [facility] [QL] Giardia, EIA; Ova/Parasite 2019-09-11 00:00:00 [facility] [QLH] FECAL LEUKOCYTE STAIN 2019-09-11 00:00:00 [facility] CT Abdomen/Pelvis w/wo contrast [id number] 2019-09-11 00:00:00 [facility] [Q] URINALYSIS, COMPLETE W/RFL CULTURE (REFL) 2019-09-11 00:00:0 0 [facility] [[facility]] CBC (INCLUDES DIFF/PLT) 2019-09-11 00:00:00 [facility] CT Neck soft tissue w/wo contrast [id number] 2019-06-04 00:00:00 [facility] [[facility]] HEPATIC FUNCTION PANEL 2019-05-14 00:00:00 [facility] [[facility]] BASIC METABOLIC PANEL W/EGFR 2019-05-14 00:00:00 [facility] [] LIPID PANEL WITH REFLEX TO DIRECT LDL 2019-05-14 00:00:00 [facility] [QL] TSH, 3RD GENERATION W/REFLEX TO FT4 2019-05-14 00:00:00 [facility] MA Bone Density DXA [employer] [id number] 2019-05-14 00:00:00 [facility] MA Digital Mammo Screening Venancio G0202 2019-05-14 00:00:00 [facility] [[facility]] CBC (INCLUDES DIFF/PLT) 2018-10-30 00:00:00 [facility] [QL] CMP W/EGFR 2018-10-30 00:00:00 [facility] [[facility]] LIPID PANEL 2018-10-30 00:00:00 [facility] [[facility]] TSH, 3RD GENERATION 2018-10-30 00:00:00 [facility] [[facility]] T4, FREE 2018-10-30 00:00:00 [place] [facility] [QL] CMP W/EGFR 2018-10-17 00:00:00 [facility] [QL] LIPID PANEL 2018-10-17 00:00:00 [facility] [[facility]] HEMOGLOBIN A1c 2018-10-17 00:00:00 [facility] [QL] TSH, 3RD GENERATION W/REFLEX TO FT4 2018-10-17 00:00:00 [facility] MA Digital Mammo Screening Venancio G0202 2018-03-14 00:00:00 [facility] MA Digital Mammo DX Venancio G0204 2018-03-14 00:00:00 [facility] [place] [id number] 2018-03-14 00:00:00 [facility] [[facility]] CBC (INCLUDES DIFF/PLT) 2018-01-25 00:00:00 [facility] [[facility]] CMP W/EGFR 2018-01-25 00:00:00 [facility] [[facility]] URINALYSIS, COMPLETE W/REFLEX TO CULTURE 2018-01-25 00:00: 00 [facility] [[facility]] PROTHROMBIN TIME-INR 2018-01-25 00:00:00 U [facility] [[facility]] PARTIAL THROMBOPLASTIN TIME, ACTIVATED 2018-01-25 00:00:00 [facility] [[facility]] TSH, 3RD GENERATION W/REFLEX TO FT4 2018-01-25 00:00:00 [facility] History of Rotator Cuff Repair [facility] History of Hernia Repair [facility] History of Hysterectomy [facility] History of Left Breast Lumpectomy [facility] History of Ear Surgery [facility] Plan of Care Planned Activity Planned Date Details Comments Source Future Scheduled Test 2020-10-06 00:00:00 [QL] TSH, 3RD GENE RATION W/REFLEX TO FT4 [code = [QL] TSH, 3RD GENERATION W/REFLEX TO FT4] [facility] Future Scheduled Test 2020-10-06 00:00:00 [QL] CMP W/EGFR [c ode = [QL] CMP W/EGFR] [facility] Future Scheduled Test 2020-10-06 00:00:00 [QL] CBC (INCLUDES DIFF/PLT) [code = [QL] CBC (INCLUDES DIFF/PLT)] [facility] Future Scheduled Test 2020-10-06 00:00:00 [QL] HEMOGLOBIN A1 c [code = [QL] HEMOGLOBIN A1c] [facility] Future Scheduled Test 2020-10-06 00:00:00 [Q] LIPID PANEL WI TH REFLEX TO DIRECT LDL [code = [Q] LIPID PANEL WITH REFLEX TO DIRECT LDL] [facility] Future Scheduled Test 2020-05-21 00:00:00 MA Digital Mammo S creening Venancio G0202 [code = G0202] [facility] Future Scheduled Test 2020-05-21 00:00:00 MA Digital Mammo S creening Venancio G0202 [code = G0202] [facility] Future Scheduled Test 2020-05-21 00:00:00 MA Digital Mammo S creening Venancio G0202 [code = G0202] [facility] Diagnostic Test Pending 2019-11-05 00:00:00 [QLH] HEPATIC FU NCTION PANEL [code = [QLH] HEPATIC FUNCTION PANEL] [facility] Diagnostic Test Pending 2019-11-05 00:00:00 [QLH] BASIC META BOLIC PANEL W/EGFR [code = [QLH] BASIC METABOLIC PANEL W/EGFR] [facility] Diagnostic Test Pending 2019-11-05 00:00:00 [QH] LIPID PANEL WITH REFLEX TO DIRECT LDL [code = [QH] LIPID PANEL WITH REFLEX TO DIRECT LDL] [facility] Diagnostic Test Pending 2019-11-05 00:00:00 [QLH] TSH, 3RD G ENERATION W/REFLEX TO FT4 [code = [QLH] TSH, 3RD GENERATION W/REFLEX TO FT4] [facility] Diagnostic Test Pending 2019-11-05 00:00:00 [QLH] HEPATIC FU NCTION PANEL [code = [QLH] HEPATIC FUNCTION PANEL] [facility] Diagnostic Test Pending 2019-11-05 00:00:00 [QLH] BASIC META BOLIC PANEL W/EGFR [code = [QLH] BASIC METABOLIC PANEL W/EGFR] [facility] Diagnostic Test Pending 2019-11-05 00:00:00 [QH] LIPID PANEL WITH REFLEX TO DIRECT LDL [code = [QH] LIPID PANEL WITH REFLEX TO DIRECT LDL] [facility] Diagnostic Test Pending 2019-11-05 00:00:00 [QLH] TSH, 3RD G ENERATION W/REFLEX TO FT4 [code = [QLH] TSH, 3RD GENERATION W/REFLEX TO FT4] [facility] Diagnostic Test Pending 2019-11-05 00:00:00 [QLH] HEPATIC FU NCTION PANEL [code = [QL] HEPATIC FUNCTION PANEL] [facility] Diagnostic Test Pending 2019-11-05 00:00:00 [QLH] BASIC META BOLIC PANEL W/EGFR [code = [QLH] BASIC METABOLIC PANEL W/EGFR] [facility] Diagnostic Test Pending 2019-11-05 00:00:00 [QH] LIPID PANEL WITH REFLEX TO DIRECT LDL [code = [QH] LIPID PANEL WITH REFLEX TO DIRECT LDL] [facility] Diagnostic Test Pending 2019-11-05 00:00:00 [QLH] TSH, 3RD G ENERATION W/REFLEX TO FT4 [code = [QL] TSH, 3RD GENERATION W/REFLEX TO FT4] [facility] Diagnostic Test Pending 2019-09-13 00:00:00 [QLH] TISSUE TRA NSGLUTAMINASE ANTIBODY, IGA [code = [QL] TISSUE TRANSGLUTAMINASE ANTIBODY, IGA] [facility] Diagnostic Test Pending 2019-09-13 00:00:00 [Q] CULTURE, STO OL, LOLIS/SHIG/CAMPY AND SHIGA TOXINS EIA W/RFL E.COLI O157 CULT [code = [Q] CULTURE, STOOL, LOLIS/SHIG/CAMPY AND SHIGA TOXINS EIA W/RFL E.COLI O157 CULT] [facility] Diagnostic Test Pending 2019-09-13 00:00:00 [QLH] TISSUE TRA NSGLUTAMINASE ANTIBODY, IGA [code = [QLH] TISSUE TRANSGLUTAMINASE ANTIBODY, IGA] [facility] Diagnostic Test Pending 2019-09-13 00:00:00 [Q] CULTURE, STO OL, LOLIS/SHIG/CAMPY AND SHIGA TOXINS EIA W/RFL E.COLI O157 CULT [code = [Q] CULTURE, STOOL, LOLIS/SHIG/CAMPY AND SHIGA TOXINS EIA W/RFL E.COLI O157 CULT] [facility] Diagnostic Test Pending 2019-05-07 00:00:00 [QLH] CBC (INCLU JUWAN DIFF/PLT) [code = [QLH] CBC (INCLUDES DIFF/PLT)] [facility] Diagnostic Test Pending 2019-05-07 00:00:00 [QLH] CMP W/EGFR [code = [QLH] CMP W/EGFR] [facility] Diagnostic Test Pending 2019-05-07 00:00:00 [QLH] LIPID PANE L [code = [QL] LIPID PANEL] [facility] Diagnostic Test Pending 2019-05-07 00:00:00 [QLH] TSH, 3RD G ENERATION [code = [QLH] TSH, 3RD GENERATION] [facility] Diagnostic Test Pending 2019-05-07 00:00:00 [QLH] T4, FREE [ code = [QLH] T4, FREE] [facility] Future Scheduled Test 2013-11-14 21:49:44 Plan of Care [code = 1877 6-5] [facility] Scheduled Test 2013-11-02 14:02:33 Plan of Care [code = 1877 6-5] [facility] Scheduled Test 2013-10-31 21:02:21 Plan of Care [code = 1877 6-5] [facility] Scheduled Test 2013-10-05 20:48:51 Plan of Care [code = 1877 6-5] [facility] Scheduled Test 2013-09-27 18:45:44 Plan of Care [code = 1877 6-5] [facility] Scheduled Test 2013-09-13 16:46:48 Plan of Care [code = 1877 6-5] [facility] Scheduled Test 2012-09-07 01:09:08 Plan of Care [code = 1877 6-5] [facility] Scheduled Test 2012-08-14 14:54:00 Plan of Care [code = 1877 6-5] [facility] Scheduled Test 2012-06-28 21:24:47 Plan of Care [code = 1877 6-5] [facility] Appointment 2020-10-13 10:00:00 Estrellita BURROUGHS, [facility] Future Appointment 2020-05-26 11:00:00 Estrellita BURROUGHS, [facility] Instructions Back Pain [facility] Encounters Start Date/Time End Date/Time Encounter Type Admission Type Attendi [facility] Care Department Encounter ID Source 2020-05-03 20:25:00 2020-05-03 23:24:00 Departed Emergency Room CALEB SCHUMACHER [facility] [id number] [facility] 2020-04-24 08:30:00 2020-04-24 08:30:00 Appointment; MIGUEL LOYOLA D.O. YEH, SHAO-CHUN, D.O. [facility] [id number] [facility] 2020-04-10 10:30:00 2020-04-10 10:30:00 Appointment; DORIE TEJEDA M.D. GOODINE, GLENDA, M.D. [place] [id number] [facility] 2020-04-08 09:00:00 2020-04-08 09:00:00 Outpatient Slava Monzon [id number] [employer]Works 2020-03-20 10:30:00 2020-03-20 10:30:00 [place] [id number] eClinicalWorks 2019-10-29 11:30:00 2019-10-29 11:30:00 Out[place] [id number] eClinicalWorks 2019-10-26 09:00:00 2019-10-26 09:00:00 Appointment; JOVITA RIVAS M.D. MOHEYUDDIN, AMINA, M.D. [facility] [id number] [facility] 2019-09-11 14:54:00 2019-09-11 23:59:00 Outpatient Citlalli Reynoso MHOIB OIB [id number] 2019-09-11 11:30:00 2019-09-11 11:30:00 Appointment; JOVITA RIVAS M.D. MOHEYUDDIN, AMINA, M.D. [facility] [id number] [facility] 2019-06-26 09:30:00 2019-06-26 09:30:00 Appointment; JENNIFER CAM M.D. BYRD, MICHAEL, M.D. [facility] Otorhinolaryngology [facility] [id number] [facility] 2019-06-11 09:14:00 2019-06-11 23:59:00 Outpatient Ale Tejeda MHSE MHSE [id number] 2019-06-11 09:14:00 2019-06-11 09:14:00 Outpatient MHSE MHSE [id number] [facility] 2019-06-04 08:00:00 2019-06-04 08:00:00 Appointment; DORIE TEJEDA M.D. GOODINE, GLENDA, M.D. [facility] [id number] [facility] 2019-05-24 11:00:00 2019-05-24 11:00:00 Appointment; DORIE TEJEDA M.D. GOODINE, GLENDA, M.D. [facility] [id number] [facility] 2019-05-21 10:02:00 2019-05-21 23:59:00 Outpatient Ale Tejeda MHSE MHSE [id number] 2019-05-21 10:02:00 2019-05-21 10:02:00 Outpatient MHSE MHSE [id number] [facility] 2019-05-14 11:00:00 2019-05-14 11:00:00 Appointment; DORIE TEJEDA M.D. GOODINE, GLENDA, M.D. [facility] [id number] [facility] 2019-01-18 10:00:00 2019-01-18 10:00:00 Outpatient Slava Monzon [id number] [employer]Works 2019-01-08 10:00:00 2019-01-08 10:00:00 Outpatient Slava Monzon [id number] [employer] 2018-10-30 14:45:00 2018-10-30 14:45:00 Appointment; DORIE TEJEDA M.D. GOODINE, GLENDA, M.D. [facility] [id number] [facility] 2018-10-26 10:20:00 2018-10-26 23:59:00 Outpatient Ale Tejeda MHSE MHSE [id number] 2018-09-13 11:00:00 2018-09-13 11:00:00 Appointment; JOCELINE LEVY A PRN SAXE, KAILA, APRN [facility] [id number] [facility] 2018-07-10 11:00:00 2018-07-10 11:00:00 Outpatient Slava Monzon [id number] [employer]Works 2018-05-01 13:30:00 2018-05-01 13:30:00 Appointment; AIMEE SOL M.D. BORTOLOTTI, JULIE, M.D. [facility] [address] [id number] [facility] 2018-03-22 10:19:00 2018-03-22 23:59:00 Outpatient Ale Tejeda MHSE MHSE [id number] 2018-03-10 09:41:00 2018-03-10 23:59:00 Outpatient Trent Bailon MHSE MHSE [id number] 2018-02-23 08:49:00 2018-02-23 23:59:00 Outpatient Edward, Briseyda p MHSE MHSE [id number] 2018 13:15:00 2018 13:15:00 Appointment; SAKINA PELLETIER M .D. BAI, KRISTY, M.D. [facility] [id number] [facility] 2018-01-25 07:30:00 2018-01-25 07:30:00 Appointment; RADHA BALLARD APRN HOANG, CHRISTINA, APRN [facility] [address] [id number] [facility] 2018-01-13 19:40:00 2018-01-13 23:59:00 Outpatient Edward, Briseyda p MHSE MHSE [id number] 2018-01-06 15:00:00 2018-01-06 15:00:00 Outpatient Slava Monzon [id number] [employer]Works 2018-01-05 11:18:00 2018-01-05 23:59:00 Outpatient Edward, Briseyda p MHSE MHSE [id number] 2018-01-04 15:00:00 2018-01-04 15:00:00 Appointment; VAUGHN KINNEY M.D. HUANG, EDDIE, M.D. [facility] UTP [id number] [facility] 2017-12-19 10:00:00 2017-12-19 10:00:00 Appointment; AMIRA MATOS M.D. JAMALYARIA, FAROKH, M.D. UTP UTP [id number] [facility] 2017-12-07 13:10:00 2017-12-07 23:59:00 Outpatient Bertha Mcknight MHSE MHSE [id number] 2017-12-07 11:15:00 2017-12-07 11:15:00 Outpatient Slava Monzon [id number] eClinicalWorks 2017-10-31 14:50:00 2017-11-29 23:59:00 Outpatient Amira Pollock [id number] 2017-10-31 14:50:00 2017-11-29 23:59:00 Outpatient Amira Pollock [id number] 2017-11-24 11:30:00 2017-11-24 11:30:00 Outpatient Slava Monzon [id number] eClinicalWorks 2017-11-16 10:00:00 2017-11-16 10:00:00 Appointment; AMIRA MATOS M.D. JAMALYARIA, FAROKH, M.D. [facility] UTP [id number] [facility] 2017-11-08 14:00:00 2017-11-08 14:00:00 [place] [id number] eClinicalWorks 2017-10-17 09:44:00 2017-10-17 23:59:00 Outpatient Amira Taylor MHOIB MHOIB [id number] 2017-10-17 08:00:00 2017-10-17 08:00:00 Appointment; AMIRA MATOS M.D. JAMALYARIA, FAROKH, M.D. UTP UTP [id number] [facility] 2017-10-13 12:42:00 2017-10-13 23:59:00 Outpatient Ale Tejeda MHHOIP MHHOIP [id number] 2017-10-10 14:45:00 2017-10-10 14:45:00 Appointment; DORIE TEJEDA M.D. GOODINE, GLENDA, M.D. [facility] UTP [id number] [facility] 2017-08-12 13:30:00 2017-08-12 13:30:00 Appointment; NILSA CASTRO NP TRAN, THUY, NP [facility] UTP [id number] [facility] 2017-07-26 10:00:00 2017-07-26 10:00:00 Appointment; DORIE TEJEDA M.D. GOODINE, GLENDA, M.D. [facility] UTP [id number] [facility] 2017-05-26 10:00:00 2017-05-26 10:00:00 Appointment; DORIE TEJEDA M.D. GOODINE, GLENDA, M.D. [facility] [id number] [facility] 2017-02-15 14:15:00 2017-02-15 14:15:00 [place] [id number] eClinicalWorks 2017-01-26 10:09:00 2017-01-26 23:59:00 Outpatient Maliha Carlos [facility] [id number] 2017-01-20 11:00:00 2017-01-20 11:00:00 Appointment; DORIE TEJEDA M.D. GOODINE, GLENDA, M.D. [facility] UTP [id number] [facility] 2017-01-13 09:15:00 2017-01-13 09:15:00 Appointment; JENNIFER CAM M.D. BYRD, MICHAEL, M.D. [facility] UTP [id number] [facility] 2016-12-24 10:30:00 2016-12-24 10:30:00 Appointment; DORIE TEJEDA M.D. GOODINE, GLENDA, M.D. [facility] UTP [id number] [facility] 2016-08-17 13:45:00 2016-08-17 13:45:00 Appointment; DORIE TEJEDA M.D. GOODINE, GLENDA, M.D. [facility] UTP [id number] [facility] 2016-08-11 10:45:00 2016-08-11 10:45:00 [place] [id number] eClinicalWorks 2016-07-27 10:45:00 2016-07-27 10:45:00 Appointment; DORIE TEJEDA M.D. GOODINE, GLENDA, M.D. [facility] UTP [id number] [facility] 2016-07-20 14:23:00 2016-07-20 23:59:00 Outpatient Bertha Mcknight SE MHSE [id number] 2016-07-09 14:00:00 2016-07-09 14:00:00 Outpatient Slava Pearson MD, [place] [id number] eClinicalWorks 2016-06-22 10:00:00 2016-06-22 10:00:00 Outpatient Slava Pearson [place], [place] [id number] eClinicalWorks 2016-05-12 10:04:00 2016-05-12 23:59:00 Outpatient Ale Tejeda SE MHSE [id number] 2016-04-28 14:23:00 2016-04-28 23:59:00 Outpatient Ale Tejeda SE MHSE [id number] 2016-04-15 09:56:00 2016-04-15 23:59:00 Outpatient Micaela Loyola MHSE MHSE [id number] 2016-04-12 10:30:00 2016-04-12 10:30:00 Appointment; MIGUEL LOYOLA D.O. YEH, SHAO-CHUN, D.O. [facility] UTP [id number] [facility] 2016-01-27 09:15:00 2016-01-27 09:15:00 Appointment; DORIE TEJEDA M.D. GOODINE, GLENDA, M.D. [facility] UTP [id number] [facility] 2015-12-26 13:30:00 2015-12-26 13:30:00 Outpatient Slava Pearson MD, [place] [id number] eClinicalWorks 2015-11-27 14:00:00 2015-11-27 14:00:00 Outpatient Slava Pearson MD, [place] [id number] eClinicalWorks 2015-09-02 14:00:00 2015-09-02 14:00:00 Outpatient Slava Pearson [place], [place] [id number] eClinicalWorks 2013-11-14 16:49:44 2013-11-14 16:49:44 Outpatient MHIE MHIE [id number] 2013-11-02 09:02:34 2013-11-02 09:02:33 Outpatient MHIE MHIE [id number] 2013-10-31 16:02:22 2013-10-31 16:02:21 Outpatient MHIE MHIE [id number] 2013-10-05 14:48:51 2013-10-05 14:48:51 Outpatient MHIE MHIE [id number] 2013-09-27 12:45:44 2013-09-27 12:45:44 Outpatient MHIE MHIE [id number] 2013-09-13 10:46:49 2013-09-13 10:46:48 Outpatient MHIE MHIE [id number] 2013-09-11 00:30:17 2013-09-11 00:30:17 Outpatient MHIE MHIE [id number] 2013-07-23 10:02:37 2013-07-23 10:02:37 Outpatient MHIE MHIE [id number] 2013-07-03 14:04:37 2013-07-03 14:04:36 Outpatient MHIE MHIE [id number] 2013-05-11 18:16:00 2013-05-11 18:15:59 Outpatient MHIE MHIE [id number] 2013-04-27 11:02:44 2013-04-27 11:02:43 Outpatient MHIE MHIE [id number] 2013-01-26 20:58:30 2013-01-26 20:58:10 Outpatient MHIE MHIE [id number] 2012-09-13 20:59:54 2012-09-13 20:59:38 Outpatient DIANA DIANA [id number] 2012-09-06 19:09:24 2012-09-06 19:09:08 Outpatient DIANA DIANA [id number] 2012-08-14 08:54:15 2012-08-14 08:54:00 Outpatient CHANELL LUA [id number] 2012-06-28 15:25:03 2012-06-28 15:24:47 Outpatient DIANA LUA [id number] Results Test Description Test Time Test Comments Results Result Comments Source CXR 2 VIEW - HOPD 2020-05-03 22:48:00 [place] [address] Patient Name: AYLIN LOGAN MR #: [id number] : 1940 Age/Sex: 80/F Req #: [id number] Adm Physician: Ordered by: CALEB SCHUMACHER Report #: [id number] Location: [facility] Room/Bed: Procedure: [id number] HOPD/CXR 2 VIEW - HOPD Exam Date: 05/03/20 Exam Time: 2139 REPORT STATUS: Signed EXAMINATION: CXR 2 VIEW - HOPD INDICATION: Back pain COMPARISON: None FINDINGS: TUBES and LINES: None. LUNGS: Normal lung volumes. Lungs are clear. No consolidations. PLEURA: No pleural effusion or pneumothorax. HEART AND MEDIASTINUM: The cardiomediastinal silhouette is within normal size limits.. Aortic calcifications. BONES AND SOFT TISSUES: Osseous demineralization. Degenerative changes in the spine. No acute osseous lesion. Soft tissues are unremarkable. UPPER ABDOMEN: No free air under the diaphragm. IMPRESSION: No acute intrathoracic radiographic abnormality. Degenerative changes in the spine. Osseous demineralization. Signed by: Farhad Bae DO on 05/03/2020 10:49 PM Dictated By: FARHAD BAE DO 46 Transcribed By: YANDY on 05/03/202248 COPY TO: CALEB SCHUMACHER Blood leukocytes automated count (number/volume) 2020-05-03 20:45:00 Test Item White Blood Count (test code = 6690-2) 7.40 4.8-10.8 [facility] (number/volume)2020-05-03 20:45:00* Test Item Value Reference Range Interpretation Comments Red Blood Count (test code = 789-8) 4.02 3.6-5.1 [facility] hemoglobin measurement (moles/volume)2020-05-03 20:45:00* Test Item Value Reference Range Interpretation Comments Hemoglobin (test code = 93934-1) 11.7 12.0-16.0 [facility] hematocrit (volume fraction)2020-05-03 20:45:00* Test Item Value Reference Range Interpretation Comments Hematocrit (test code = 4544-3) 35.6 34.2-44.1 [facility] eryth[facility] mean corpuscular [id number] 20:45:00* Test Item Value Reference Range Interpretation Comments Mean Corpuscular Volume (test code = 787-2) 88.6 81-99 [facility] McKinneyAutomated erythrocyte mean corpuscular hemoglobin (mass per erythrocyte)2020-05-03 20:45:00* Test Item Value Reference Range Interpretation Comments Mean Corpuscular Hemoglobin (test code = 785-6) 29.1 28-32 [facility] McKinneyAutomated erythrocyte mean corpuscular hemoglobin concentration measurement (mass/volume)2020-05-03 20:45:00* Test Item Value Reference Range Interpretation Comments Mean Corpuscular Hemoglobin Concent (test code = 786-4) 32.9 31-35 [facility] McKinneyRDW [id number] 20:45:00* Test Item Value Reference Range Interpretation Comments Red Cell Distribution Width (test code = 14456-6) 13.3 11.7 -14.4 [facility] McKinneyAutomated blood platelet count (count/volume)2020-05-03 20:45:00* Test Item Value Reference Range Interpretation Comments Platelet Count (test code = 777-3) 236 140-360 [facility] McKinneyAutomated blood segmented neutrophil count as percentage of total [id number] 20:45:00* Test Item Value Reference Range Interpretation Comments Neutrophils (%) (Auto) (test code = 15767-0) 49.3 38.7-80.0 [facility] McKinneyAutomated blood lymphocyte count as percentage ot total [id number] 20:45:00* Test Item Value Reference Range Interpretation Comments Lymphocytes (%) (Auto) (test code = 736-9) 37.6 18.0-39.1 [facility] [place]neyAutomated blood monocyte count as percentage of total xfbqorzlvh0359-76-16 20:45:00* Test Item Value Reference Range Interpretation Comments Monocytes (%) (Auto) (test code = 5905-5) 10.0 4.4-11.3 [facility] [place]neyAutomated blood eosinophil count as percentage of total iazczkfdvf3994-63-33 20:45:00* Test Item Value Reference Range Interpretation Comments Eosinophils (%) (Auto) (test code = 713-8) 1.9 0.0-6.0 [facility] [place]neyAutomated blood basophil count as percentage of total dtoaadxyuj9513-68-23 20:45:00* Test Item Value Reference Range Interpretation Comments Basophils (%) (Auto) (test code = 706-2) 0.7 0.0-1.0 [facility] McKinneyFluoroscopic procedure less than one hour tbosqdwr5134-72-70 20:45:00* Test Item Value Reference Range Interpretation Comments IM GRANULOCYTES % (test code = IM GRANULOCYTES %) 0.5 0.0- 1.0 [facility] [place]neyAutomated blood neutrophil count 2020-05-03 20:45:00* Test Item Value Reference Range Interpretation Comments Neutrophils # (Auto) (test code = 751-8) 3.7 2.1-6.9 [facility] McKinneyBlood lymphocytes count (number/volume) 2020-05-03 20:45:00* Test Item Value Reference Range Interpretation Comments Lymphocytes # (Auto) (test code = 73625-7) 2.8 1.0-3.2 [facility] McKinneyBlood monocytes automated count (number/volume)2020-05-03 20:45:00* Test Item Value Reference Range Interpretation Comments Monocytes # (Auto) (test code = 742-7) 0.7 0.2-0.8 [facility] [place]neyAutomated blood eosinophil count 2020-05-03 20:45:00* Test Item Value Reference Range Interpretation Comments Eosinophils # (Auto) (test code = 711-2) 0.1 0.0-0.4 [facility] [place]neyAutomated blood basophil count (count/volume)2020-05-03 20:45:00* Test Item Value Reference Range Interpretation Comments Basophils # (Auto) (test code = 704-7) 0.1 0.0-0.1 [facility] McKinneyFluoroscopic procedure less than one hour nyykfvap9580-22-20 20:45:00* Test Item Value Reference Range Interpretation Comments Absolute Immature Granulocyte (auto (kaya t code = Absolute Immature Granulocyte (auto) 0.04 0-0.1 [facility] [place][Q] LIPID PANEL WITH REFLEX TO DIRECT LDL 2020-04-03 09:41:00* Test Item Value Reference Range Interpretation Comments CHOLESTEROL, TOTAL; Normal (test code = 2093-3) 117 mg/dl <200 N HDL CHOLESTEROL; Below Low Threshold (test code = 2085-9) 41 mg/dl > OR = 50 TRIGLYCERIDES; Normal (test code = 2571-8) 86 mg/dl <150 N LDL-CHOLESTEROL; Normal (test code = 19365-6) 59 {MG/DL MARIAN} N Reference range: <100 Desirable range <100 mg/dL for primary prevention; <70 mg/dL for patients with CHD or diabetic patients with > or = 2 CHD risk factors. LDL-C is now calculated using the Dread-Mcbride calculation, which is a validated novel method providing better accuracy than the Friedewald equation in the estimation of LDL-C. Dread SS et al. MARTINE. 2013;310(19): 2973-5876 (http ://education.[employer]/faq/LRT580) CHOL/HDLC RATIO (test code = CHOL/HDLC RATIO) 2.9 {CALC} <5.0 N NON HDL CHOLESTEROL (test code = NON HDL CHOLESTEROL) 76 {MG/DL CA L} <130 N For patients with diabetes plus 1 major ASCVD risk factor, treating to a non-HDL-C goal of <100 mg/dL (LDL-C of <70 mg/dL) is considered a therapeutic option. [facility][QL] PHOSPHATE ( PHOSPHORUS)2020-04-03 09:41:00 * Test Item Value Reference Range Interpretation Comments PHOSPHATE ( PHOSPHORUS) (test code = PHOSPHATE ( PHOSPHO MATEUS)) 4.2 mg/dl 2.1-4.3 N [facility][QL] CMP [id number] 09:41:00* Test Item Value Reference Range Interpretation Comments GLUCOSE; Above High Threshold (test code = 1547-9) 108 mg/dl 65- 99 Fasting reference interval For someone without known diabetes, a glucose valuebetween 100 and 125 mg/dL is consistent withprediabetes and should be confirmed with afollow-up test. UREA NITROGEN (BUN) (test code = UREA NITROGEN (BUN)) 23 mg/dl 7-25 N CREATININE (test code = CREATININE) 0.92 mg/dl 0.60-0.88 For patients >49 years of age, the reference limitfor Creatinine is approximately 13% higher for peopleidentified as -Citizen Of [place]. eGFR NON-AFR. ETHIOPIAN (test code = eGFR NON-AFR. ETHIOPIAN) 58 {ML/MIN/1.7} > OR = 60 eGFR (test code = eGFR ) 67 {ML/MIN/1.7} > OR = 60 N BUN/CREATININE RATIO (test code = BUN/CREATININE RATIO) 25 {CALC} 6-22 SODIUM (test code = SODIUM) 140 mmol/L 135-146 N POTASSIUM (test code = POTASSIUM) 4.8 mmol/L 3.5-5.3 N CHLORIDE (test code = CHLORIDE) 106 mmol/L 98-110 N CARBON DIOXIDE (test code = CARBON DIOXIDE) 27 mmol/L 20-32 N CALCIUM (test code = CALCIUM) 9.0 mg/dl 8.6-10.4 N PROTEIN, TOTAL (test code = PROTEIN, TOTAL) 7.1 g/dl 6.1-8.1 N ALBUMIN (test code = ALBUMIN) 4.1 g/dl 3.6-5.1 N GLOBULIN (test code = GLOBULIN) 3.0 {G/DL CALC} 1.9-3.7 N ALBUMIN/GLOBULIN RATIO (test code = ALBUMIN/GLOBULIN RATIO) 1.4 {CALC} 1.0-2.5 N BILIRUBIN, TOTAL; Normal (test code = 74576-6) 0.6 mg/dl 0.2-1.2 N ALKALINE PHOSPHATASE (test code = ALKALINE PHOSPHATASE) 79 u/l 37-153 N AST; Normal (test code = 1916-6) 18 u/l 10-35 N ALT; Normal (test code = 1742-6) 18 u/l 6-29 N [facility][QL] T4, [id number] 09:41:00* Test Item Value Reference Range Interpretation Comments T4, FREE (test code = T4, FREE) 1.3 ng/dl 0.8-1.8 N [facility][QL] TSH, 3RD [id number] 09:41:00* Test Item Value Reference Range Interpretation Comments TSH; Normal (test code = 24720-9) 0.89 {MIU/L} 0.40-4.50 N [facility][QL] VITAMIN D, 25-HYDROXY, LC/MS/[id number] 09:41:00* Test Item Value Reference Range Interpretation Comments VITAMIN D,25-OH,TOTAL,IA (test code = VITAMIN D,25-OH,TOTAL,IA) 48 ng/ml 30-100 N Vitamin D Status 25-OH Vitamin D : Deficiency: <20 ng/mLInsufficiency: 20 - 29 ng/mLOptimal: > or = 30 ng/mL For 25-OH Vitamin D testing on patients on D2-supplementation and patients for whom quantitation of D2 and D3 fractions is required, the QuestAssureD(TM)25-OH VIT D, (D2,D3), LC/MS/MS is recommended: order code 30093 (patients >2yrs).See Note 1 Note 1 For additional information, please refer to http://education.InNetwork.Performance Lab/faq/GGO737 (This link is being provided for informational/educational purposes only.) [facility]iciansSURGICAL [id number] 12:29:00 RUN DATE: 11/08/19 [facility] *LIVE* PAGE 1 RUN TIME: 1229 Specimen Inqui ry RUN USER: INTERFACE PATIENT: AYLIN LOGAN ACCT #: [id number] LOC: [place] U #: [id number] AGE/SX: 79/F ROOM: [facility] RE11/01/19XU DR: Jessenia Merritt MD : 38 BED: 2 DIS: 11/01/19 STATUS: DIS IN TLOC: SPEC #: [id number] RECD: 11/02/19-151 STATUS: [facility] #: [id number] IRA: 11/02/19-[address]: Jessenia Merritt MD ENTERED: 11/07/19-1516 SP TYPE: SURG SPEC OTHR DR: Fannie Torres MD, Glenda M MDORDERED: GM LEVEL 4 CODES: [id number] - UTERUS, NOS [id number] - PELVIS, NOS COPIES TO: Fannie Torres MD [address] [place] [address] [place] [address] [place] [address] Jessenia Merritt MD [address] [place] [address] PROCEDURES: GM LEVEL 4 (Incomplete) TISS UES: 1. PELVIS, NOS - Pelvic, washing 2. UTERUS, NOS - Adne xa, left, excision 3. UTERUS, NOS - Adnexa, right, excision FINAL DIAGNOSIS Pelvic, washing: No cells diagnostic of malignancy. Adnexa, left, excision: Fibrothecoma, ovary with corpora albicantia. Adnex a, right, excision: Ovary with corpora albicantia physiologic cysts; fallopia n tube with no significant histopathology. GROSS AND MICROSCOPIC FROZEN SECTION DIAGNOSIS (): Left ovary: Spindled cell lesion, favor fibrothec merrick. GROSS DESCRIP TION: Received are 40 cc of yellow brown pelvic washing for CONTINUED ON NEXT PAGE RUN DATE: 11/08/19 [facility] *LIVE* PAGE 2 RUN TIME: 122 9 Specimen Inquiry RUN USER: INTER FACE SPEC #: [id number] PATIENT: AYLIN LOGAN #[id number] (Con tinued) GROSS AND MICROSCOPIC (Continued) cytologic e valuation. Received fresh labeled left adnexa is a 6 x 4 x 3 cm fragmented ovary with yellow- parenc hyma, the lesion is solid. A section is submitted for frozen section (A), additional tissue is submitted (B)-(H). Specimen #3, right adne xa is one ovary measuring 2.7 cm with attached of fallopian tube measuring 5 x 0.7 cm. Entirely submitted (I)-(K). MICROSCOPIC EXAMINATION: Sect ions of the left adnexal mass reveal bland spindled cells with no signific ant increase in mitotic activity, necrosis or atypia. There is background o varian tissue with corpora albicantia. The cells show patchy positivity fo r CD34, WT1 and calretinin; negative for S100, SMA, desmin, pankeratin and inh ibin. The controls are appropriate. Sections of the right adnexa reveal corpo ra albicantia and physiologic cysts. The fallopian tube is unremarkable. Cell block and cytospin smears of the pelvic wa shings reveal mixed inflammation, hemorrhage and occasional mesotheli al cells. No cells diagnostic of malignancy. POST-OP DIAGNOSIS Pelvic mass PRE-OP DIAGNOSIS Pelvic mass REVIEWED BY: MICHAEL Signed SIGNATU RE ON FILE Jason Mckeon DO 11/08/19 1229 - END OF REPORT ARTERIAL BLOOD [id number] 17:56:00* Test Item Value Reference Range Interpretation Comments ARTERIAL BLOOD GAS PH (test code = PHA) 7.365 7.35-7.45 N ARTERIAL BLOOD GAS PCO2 (test code = PCO2A) 41.5 mmHg 35-45 N ARTERIAL BLOOD GAS PO2 (test code = PO2A) 76 mmHg 80-100 L BICARBONATE TOTAL HCO3 (test code = HCO3) 23.8 mmol/L 22.0-26.0 N BASE EXCESS (test code = TRISTON) -2.0 mmol/L -4-4 N ABG O2 SATURATION (test code = SATA) 95 % 90-100 N ABG DELIVERY (test code = SAGRARIO) Cannula ABG TEMPERATURE (test code = TEMPA) 98.0 F ABG SITE (test code = SITEA) L Rad TCO2 ARTERIAL (test code = TCO2A) 25 BASIC METABOLIC [id number] 13:14:00* Test Item Value Reference Range Interpretation Comments SODIUM (test code = NA) 137 mEq/L 134-147 N POTASSIUM (test code = K) 3.5 mEq/L 3.4-5.0 N CHLORIDE (test code = CL) 105 mEq/L 100-108 N CARBON DIOXIDE (test code = CO2) 27 mEq/L 21-33 N ANION GAP (test code = GAP) 9 0-20 N GLUCOSE (test code = GLU) 169 mg/dL 70-110 H BLOOD UREA NITROGEN (test code = BUN) 20 mg/dL 7-18 H GLOMERULAR FILTRATION RATE (test code = GFR) 60.1 70-80 L Units of measure = ml/min/1.73 m2 CREATININE (test code = CREAT) 0.9 mg/dL 0.6-1.3 N CALCIUM (test code = CA) 8.3 mg/dL 8.0-10.5 N - XR CHEST 2 [id number] 15:48:00 FAX: Ale Servin MD [phone] [place]: St: PRE FAX: Jessenia Costello [phone] Name: AYLIN LOGAN [facility] : 1940 Age/S: 79/F [address] [place] [address] Unit #: [id number] Loc: [place] [address] Phys: Jessenia Merritt MD Acct: [id number] Dis Date: Status: PRE SDC PHONE #: [phone] Exam Date: 10/30/2019 1546 FAX #: [phone] Reason: PRE-OP PELVIC MASS EXAMS: CPT CODE: [id number] XR CHEST 2 V 47620 2 view chest x-ray performed October 30, 2019. COMPARISON: December 23, 2009. CLINICAL HISTORY: PRE-OP PELVIC MASS. DISCUSSION: 2 views/ films of the chest are submitted. Lungs are clear bilaterally. Cardiomediastinal silhouette is normal in size. Atheros clerotic vascular calcifications are noted. Osseous structures show degene rative changes. IMPRESSION: No acute cardiopulmonary f indings at 1 428 Reported and signed by: Belia Bermeo M.D. CC: Ale Tejeda MD; Jessenia Merritt MD Techn ologist: RT Anurag(R) Trnscrd Date/Deacon e/By: 10/30/2019 (5379) : By: NoraG Orig Print D/T: S: 10/30/2019 (3493) PAGE 1 Signed Report BASIC METABOLIC [id number] 15:32:00* Test Item Value Reference Range Interpretation Comments SODIUM (test code = NA) 139 mEq/L 134-147 N POTASSIUM (test code = K) 3.8 mEq/L 3.4-5.0 N CHLORIDE (test code = CL) 108 mEq/L 100-108 N CARBON DIOXIDE (test code = CO2) 30 mEq/L 21-33 N ANION GAP (test code = GAP) 5 0-20 N GLUCOSE (test code = GLU) 123 mg/dL 70-110 H BLOOD UREA NITROGEN (test code = BUN) 18 mg/dL 7-18 N GLOMERULAR FILTRATION RATE (test code = GFR) 60.1 70-80 L Units of measure = ml/min/1.73 m2 CREATININE (test code = CREAT) 0.9 mg/dL 0.6-1.3 N CALCIUM (test code = CA) 8.8 mg/dL 8.0-10.5 N BASIC METABOLIC [id number] 15:31:00* Test Item Value Reference Range Interpretation Comments SODIUM (test code = NA) 139 mEq/L 134-147 N POTASSIUM (test code = K) 3.8 mEq/L 3.4-5.0 N CHLORIDE (test code = CL) 108 mEq/L 100-108 N CARBON DIOXIDE (test code = CO2) 30 mEq/L 21-33 N ANION GAP (test code = GAP) 5 0-20 N GLUCOSE (test code = GLU) 123 mg/dL 70-110 H BLOOD UREA NITROGEN (test code = BUN) 18 mg/dL 7-18 N GLOMERULAR FILTRATION RATE (test code = GFR) 70-80 CREATININE (test code = CREAT) mg/dL 0.6-1.3 CALCIUM (test code = CA) 8.8 mg/dL 8.0-10.5 N PROTHROMBIN [id number] 15:26:00* Test Item Value Reference Range Interpretation Comments PROTHROMBIN TIME PATIENT (test code = PTP) 12.5 SECONDS 9.3-12.9 N INTERNATIONAL NORMAL RATIO (test code = INR) 1.1 0.8-1.2 N TARGET INR BY INDICATION Indication INR1. Prophylaxis of venous thrombosis 2.0 - 3.0 (orthopedic surgery), Prophylaxis of venous thrombosis (other than high-risk surgery), Treatment of Deep Vein Thrombosis/Pulmonary Embolism, Prevention of systemic embolism - Tissue heart valves, Acute Myocardial Infarction (to prevent systemic embolism), Valvular heart disease, Atrial Fibrillation, Bileaflet mechanical valve in aortic position.2. Mechanical prosthetic valves (high risk), 2.5 - 3.5 Presence of Lupus Anticoagulant or Antiphospholipid Antibodies, Prevention of systemic embolism - Acute Myocardial Infarction (to prevent recurrent infarct). THROMBOPLASTIN TIME [id number] 15:26:00* Test Item Value Reference Range Interpretation Comments THROMBOPLASTIN TIME PARTIAL (test code = PTT) 27.9 Seconds 25.0-39. 5 N Therapeutic Range: 50.4 - 88.3 Seconds Effective 12/05/2018 CBC W/AUTO [id number] 15:16:00* Test Item Value Reference Range Interpretation Comments WHITE BLOOD CELL (test code = WBC) 10.26 x10 3/uL 4.5-11.0 N RED BLOOD CELL (test code = RBC) 4.32 x10 6/uL 3.54-5.02 N HEMOGLOBIN (test code = HGB) 12.7 g/dL 11.0-15.0 N HEMATOCRIT (test code = HCT) 39.5 % 33.0-45.0 N MEAN CELL VOLUME (test code = MCV) 91.4 fL 81.0-99.0 N MEAN CELL HGB (test code = MCH) 29.4 pg 27.0-33.0 N MEAN CELL HGB CONCETRATION (test code = MCHC) 32.2 g/dL 33.0-37. 0 L RED CELL DISTRIBUTION WIDTH CV (test code = RDW) 12.8 % 11.5- 14.5 N RED CELL DISTRIBUTION WIDTH SD (test code = RDW-SD) 42.8 fL 37 .0-54.0 N PLATELET COUNT (test code = PLT) 275 x10 3/uL 150-400 N MEAN PLATELET VOLUME (test code = MPV) 9.5 fL 7.0-9.0 H NEUTROPHIL % (test code = NT%) 75.1 % 56.0-77.0 N IMMATURE GRANULOCYTE % (test code = IG%) 0.4 % 0.0-2.0 N LYMPHOCYTE % (test code = LY%) 14.4 % 14.0-32.0 N MONOCYTE % (test code = MO%) 7.9 % 4.8-9.0 N EOSINOPHIL % (test code = EO%) 1.8 % 0.3-3.7 N BASOPHIL % (test code = BA%) 0.4 % 0.0-2.0 N NUCLEATED RBC % (test code = NRBC%) 0.0 % 0-0 N NEUTROPHIL # (test code = NT#) 7.71 x10 3/uL 2.0-7.6 H IMMATURE GRANULOCYTE # (test code = IG#) 0.04 x10 3/uL 0.00-0.03 H LYMPHOCYTE # (test code = LY#) 1.48 x10 3/uL 1.0-3.8 N MONOCYTE # (test code = MO#) 0.81 x10 3/uL 0.1-0.8 H EOSINOPHIL # (test code = EO#) 0.18 x10 3/uL 0.0-0.2 N BASOPHIL # (test code = BA#) 0.04 x10 3/uL 0.0-0.2 N NUCLEATED RBC # (test code = NRBC#) 0.00 x10 3/uL 0.0-0.1 N MANUAL DIFF REQUIRED (test code = MDIFF) NO [[facility]] BASIC METABOLIC PANEL [id number] 09:47:00* Test Item Value Reference Range Interpretation Comments GLUCOSE; Normal (test code = 1547-9) 96 mg/dl 65-139 N Non-fasting reference interval UREA NITROGEN (BUN) (test code = UREA NITROGEN (BUN)) 19 mg/dl 7-25 N CREATININE (test code = CREATININE) 1.00 mg/dl 0.60-0.88 For patients >49 years of age, the reference limitfor Creatinine is approximately 13% higher for peopleidentified as -Citizen Of [place]. eGFR NON- (test code = eGFR NON-LYNETTE N ETHIOPIAN) 53 {ML/MIN/1.7} > OR = 60 eGFR (test code = eGFR ) 61 {ML/MIN/1.7} > OR = 60 N BUN/CREATININE RATIO (test code = BUN/CREATININE RATIO) 19 {CALC} 6-22 N SODIUM (test code = SODIUM) 138 mmol/L 135-146 N POTASSIUM (test code = POTASSIUM) 4.4 mmol/L 3.5-5.3 N CHLORIDE (test code = CHLORIDE) 103 mmol/L 98-110 N CARBON DIOXIDE (test code = CARBON DIOXIDE) 25 mmol/L 20-32 N CALCIUM (test code = CALCIUM) 9.3 mg/dl 8.6-10.4 N [facility]] PROTHROMBIN [id number] 09:47:00* Test Item Value Reference Range Interpretation Comments INR (test code = INR) 1.0 N Refere nce Range 0.9-1.1Moderate-intensity Warfarin Therapy 2.0-3.0Higher-intensity Warfarin Therapy 3.0-4.0 PT (test code = PT) 10.3 {sec} 9.0-11.5 N For more information on this test, go to:http://Livescribe.Citelighter/faq/BLT071 [facility]] CBC (INCLUDES DIFF/PLT)2019-10-26 09:47:00* Test Item Value Reference Range Interpretation Comments WHITE BLOOD CELL COUNT (test code = WHITE BLOOD CELL COUNT) 10.2 {Thousand/u} 3.8-10.8 N RED BLOOD CELL COUNT (test code = RED BLOOD CELL COUNT) 4.58 {Million/uL} 3.80-5.10 N HEMAGLOBIN; Normal (test code = 06971-9) 13.5 g/dl 11.7-15.5 N HEMATOCRIT; Normal (test code = 4544-3) 40.0 % 35.0-45.0 N MCV; Normal (test code = 787-2) 87.3 fL 80.0-100.0 N MCHC; Normal (test code = 64388-4) 33.8 g/dl 32.0-36.0 N RDW; Normal (test code = 788-0) 12.9 % 11.0-15.0 N PLATELET COUNT; Normal (test code = 777-3) 274 {Thousand/u} 140-400 N MPV; Normal (test code = 56908-3) 10.5 fL 7.5-12.5 N ABSOLUTE NEUTROPHILS (test code = ABSOLUTE NEUTROPHILS) 7946 {cells/uL} 2778-6483 ABSOLUTE LYMPHOCYTES (test code = ABSOLUTE LYMPHOCYTES) 1367 {cells/uL} 850-3900 N ABSOLUTE MONOCYTES (test code = ABSOLUTE MONOCYTES) 755 {cells/uL} 200-950 N ABSOLUTE EOSINOPHILS (test code = ABSOLUTE EOSINOPHILS) 82 {cells/u L} 15-500 N ABSOLUTE BASOPHILS (test code = ABSOLUTE BASOPHILS) 51 {cells/uL} 0 -200 N NEUTROPHILS (test code = NEUTROPHILS) 77.9 % N LYMPHOCYTES (test code = LYMPHOCYTES) 13.4 % N MONOCYTES; Normal (test code = 16135-8) 7.4 % N EOSINOPHILS; Normal (test code = 23736-7) 0.8 % N BASOPHILS; Normal (test code = 79289-4) 0.5 % N [facility][] CULTURE, STOOL, LOLIS/SHIG/CAMPY AND SHIGA TOXINS EIA W/RFL E.COLI O157 [id number] 13:22:00* Test Item Value Reference Range Interpretation Comments EIA (test code = EIA) See Comment SHIGA TOXINS, EIA W/RFL TO E.COLI O157 CULTURE Micro Number: [id number] Test Status: Final Specimen Source: STOOL Specimen Quality: Adequate Shiga Toxin: Not Detected CULTURE (test code = CULTURE) See Comment SALMONELLA AND SHIGELLA, CULTURE Micro Number: [id number] Test Status: Final Specimen Source: STOOL Specimen Quality: Adequate Result: No Salmonella or Shigella isolated [facility]] FECAL LEUKOCYTE [id number] 13:19:00* Test Item Value Reference Range Interpretation Comments LEUKOCYTES (test code = LEUKOCYTES) See Comment FECAL LEUKOCYTE STAIN Micro Number: [id number] Test Status: Final Specimen Source: STOOL Specimen Quality: Adequate Fecal Leukocyte: Not Detected [facility]] TISSUE TRANSGLUTAMINASE ANTIBODY, IGA 2019-09-13 09:39:00* Test Item Value Reference Range Interpretation Comments TISSUE TRANSGLUTAMINASE AB, IGA (test code = TISSUE TR ANSGLUTAMINASE AB, IGA) 1 U/ml N Value Interpret ation ----- <4 No Antibody Detected > or = 4 Antibody Detected [facility][] URINALYSIS, COMPLETE W/RFL CULTURE (REFL) 2019-09-13 09:33:00* Test Item Value Reference Range Interpretation Comments COLOR; Normal (test code = 5778-6) YELLOW YELLOW N APPEARANCE (test code = APPEARANCE) CLOUDY CLEAR A SPECIFIC GRAVITY; Normal (test code = 2965-2) 1.020 1.001-1. 035 N PH; Normal (test code = 2756-5) 5.5 5.0-8.0 N GLUCOSE; Normal (test code = 1547-9) NEGATIVE NEGATIVE N BILIRUBIN; Normal (test code = 49939-9) NEGATIVE NEGATIVE N KETONES; Normal (test code = 88321-0) NEGATIVE NEGATIVE N OCCULT BLOOD; Normal (test code = 79559-1) NEGATIVE NEGATIVE N PROTEIN; Normal (test code = 98803-8) NEGATIVE NEGATIVE N NITRITE (test code = NITRITE) POSITIVE NEGATIVE A LEUKOCYTE ESTERASE (test code = LEUKOCYTE ESTERASE) 1+ NE GATIVE A WBC; Abnormal (test code = 6690-2) 10-20 < OR = 5 A RBC; Normal (test code = 789-8) NONE SEEN < OR = 2 N SQUAMOUS EPITHELIAL CELLS; Abnormal (test code = 40589-3) 10-20 < OR = 5 A BACTERIA; Abnormal (test code = 630-4) MANY NONE SEEN A HYALINE CAST; Abnormal (test code = 25164-2) 0-1 NONE SEEN A COMMENTS (test code = 97010-7) FEW MUCOUS THREADS [facility][Q] REFLEXIVE URINE [id number] 09:33:00* Test Item Value Reference Range Interpretation Comments REFLEXIVE URINE CULTURE (test code = REFLEXIVE URINE C ULTURE) CULTURE INDICATED - RESULTS TO FOLLOW [facility]] CBC (INCLUDES DIFF/PLT)2019-09-13 09:33:00* Test Item Value Reference Range Interpretation Comments WHITE BLOOD CELL COUNT (test code = WHITE BLOOD CELL COUNT) 6.8 {Thousand/u} 3.8-10.8 N RED BLOOD CELL COUNT (test code = RED BLOOD CELL COUNT) 4.36 {Million/uL} 3.80-5.10 N HEMAGLOBIN; Normal (test code = 93370-1) 12.8 g/dl 11.7-15.5 N HEMATOCRIT; Normal (test code = 4544-3) 38.6 % 35.0-45.0 N MCV; Normal (test code = 787-2) 88.5 fL 80.0-100.0 N MCHC; Normal (test code = 08847-5) 33.2 g/dl 32.0-36.0 N RDW; Normal (test code = 788-0) 12.9 % 11.0-15.0 N PLATELET COUNT; Normal (test code = 777-3) 281 {Thousand/u} 140-400 N MPV; Normal (test code = 27705-9) 10.3 fL 7.5-12.5 N ABSOLUTE NEUTROPHILS (test code = ABSOLUTE NEUTROPHILS) 4230 {cells/uL} 1929-9055 N ABSOLUTE LYMPHOCYTES (test code = ABSOLUTE LYMPHOCYTES) 1822 {cells/uL} 850-3900 N ABSOLUTE MONOCYTES (test code = ABSOLUTE MONOCYTES) 551 {cells/uL} 200-950 N ABSOLUTE EOSINOPHILS (test code = ABSOLUTE EOSINOPHILS) 150 {cells/ uL} 15-500 N ABSOLUTE BASOPHILS (test code = ABSOLUTE BASOPHILS) 48 {cells/uL} 0 -200 N NEUTROPHILS (test code = NEUTROPHILS) 62.2 % N LYMPHOCYTES (test code = LYMPHOCYTES) 26.8 % N MONOCYTES; Normal (test code = 13664-4) 8.1 % N EOSINOPHILS; Normal (test code = 35653-8) 2.2 % N BASOPHILS; Normal (test code = 20042-3) 0.7 % N [facility]] CULTURE, URINE, [id number] 09:33:00* Test Item Value Reference Range Interpretation Comments CULTURE (test code = CULTURE) See Comment A CULTURE, URINE, ROUTINE Micro Number: [id number] Test Status: Final Specimen Source: URINE Specimen Quality: Adequate Result: Greater than 100,000 CFU/mL of Escherichia coli COMMENT: Additional organism(s) less than 10,000 CFU/mL isolated. These organisms, commonly found on external and internal genitalia, are considered colonizers. No further testing performed. E.coli INT ELENO AMOX/CLAVULANATE S 4 AMPICILLIN I 16 AMP/SULBACTAM S 4 CEFAZOLIN NR <=4 2 CEFEPIME S <=1 CEFTRIAXONE S <=1 CIPROFLOXACIN S <=0.25 GENTAMICIN S <=1 IMIPENEM S <=0.25 LEVOFLOXACIN S <=0.12 NITROFURANTOIN S <=16 PIP/TAZOBACTAM S <=4 TOBRAMYCIN S <=1 TRIMETHOPRIM/SULFA R >=320S=Susceptible I=Intermediate R=Resistant * = Not TestedNR = Not Reported NN = See Therapy CommentsTHERAPY COMMENTS Note 1: For infections other than uncomplicated UTI caused by E. coli, K. pneumoniae or P. mirabilis: Cefazolin is resistant if ELENO > or = 8 mcg/mL. (Distinguishing susceptible versus intermediate for isolates with ELENO < or = 4 mcg/mL requires additional testing.) Note 2: For uncomplicated UTI caused by E. coli, K. pneumoniae or P. mirabilis: Cefazolin is susceptible if ELENO <32 mcg/mL and predicts susceptible to the oral agents cefaclor, cefdinir, cefpodoxime, cefprozil, cefuroxime, cephalexin and loracarbef. [facility][O] Flu Test (in Office )2019-09-11 12:29:00* Test Item Value Reference Range Interpretation Comments Flu A (test code = Flu A) NEGATIVE N Flu B (test code = Flu B) NEGATIVE N [facility] PhysiciansCHEM [id number] 15:21:000.9[facility] CHEM [id number] 15:21:0060[facility] soft tissue w/wo contrast [id number] 09:42:00Radiation Dose CTDIVOL = 0 (mGy): DLP = 511 (mGy- cm)PROCEDURE INFORMATION:Exam: CT Neck Without and With ContrastExam date and time: 06/11/2019 10:26 AMClinical history: 79 years old, female; Localized swelling, mass and lump, massof submandibular region, lump on left side behind ear for 2 yrs, it's gone downwith antibioticsTECHNIQUE:Imaging protocol: Computed tomography images of the neck without and withintravenous contrast.Total DLP: 511 mGy-cmRadiation optimization: All CT scans at this facility use at least one of thesedose optimization techniques: automated exposure control; mA and/or kVadjustment per patient size (includes targeted exams where dose is matched toclinical indication); or iterative reconstr uction.Contrast material: OMNI; Contrast volume: 100 ml; Contrast route: IV; COM PARISON:NECK SOFT TISSUE W-WO CONTRAST CT 12/28/2016 12:36 PMFINDINGS:Nasopharynx: No suspicious asymmetry.Oropharynx: No suspicious asymmetry. No significant ton sillar enlargement.Hypopharynx: No suspicious asymmetryLarynx: No suspicious asy mmetry of the vocal cord is. Normal epiglottis.Retropharyngeal space: Clear.Subm andibular/Parotid glands: No underlying mass or sialolith. Glands aresymmetric i n size.Thyroid: No enlarged or calcified nodules identified. Lymph nodes: No s uspicious lymphadenopathy.Trachea: Visualized trachea is unremarkable.Lungs: Unr emarkable as visualized.Bones: The exam is limited to lack of intravenous contra st. Degenerativechanges of the cervical spine most pronounced at C5-C6 and C6-C7 .Soft tissues: Skin thickening the left retroauricular soft tissues (series 4ima ge 13), without underlying calcification or signs of a fluid collection. Athero sclerosis of the partially imaged aortic arch and carotid bulbs.IMPRESSION:Skin thickening in the left retroauricular soft tissues, without soft tissuemass or f luid collection in the soft tissues of the neck.No suspicious adenopathy.Eliel Schwartz MD On 06/12/2019 10:34:55; [id number]--[id number] by: Eliel Schwartz [facility] Date/time: 06/12/19 10:35Electronically Signed by: Eliel Schwartz MD 06/12/1910:35FINAL REPORTUnValley View Medical Center [facility] [[facility]] LIPID [id number] 09:47:00* Test Item Value Reference Range Interpretation Comments CHOLESTEROL, TOTAL; Normal (test code = 2093-3) 131 mg/dl <200 N HDL CHOLESTEROL; Below Low Threshold (test code = 2085-9) 35 mg/dl >50 TRIGLYCERIDES; Above High Threshold (test code = 2571-8) 162 mg/dl <150 LDL-CHOLESTEROL; Normal (test code = 63919-6) 72 {MG/DL MARIAN} N Reference range: <100 Desirable range <100 mg/dL for primary prevention; <70 mg/dL for patients with CHD or diabetic patients with > or = 2 CHD risk factors. LDL-C is now calculated using the Dread-Rae calculation, which is a validated novel method providing better accuracy than the Friedewald equation in the estimation of LDL-C. Dread MEJIA et al. MARTINE. 2013;310(19): 1144-3609 (http ://education.InNetwork.Performance Lab/faq/LSY621) CHOL/HDLC RATIO (test code = CHOL/HDLC RATIO) 3.7 {CALC} <5.0 N NON HDL CHOLESTEROL (test code = NON HDL CHOLESTEROL) 96 {MG/DL CA L} <130 N For patients with diabetes plus 1 major ASCVD risk factor, treating to a non-HDL-C goal of <100 mg/dL (LDL-C of <70 mg/dL) is considered a therapeutic option. [facility]] CMP [id number] 09:47:00* Test Item Value Reference Range Interpretation Comments GLUCOSE; Normal (test code = 1547-9) 98 mg/dl 65-99 N Fasting reference interval UREA NITROGEN (BUN) (test code = UREA NITROGEN (BUN)) 22 mg/dl 7-25 N CREATININE (test code = CREATININE) 1.02 mg/dl 0.60-0.88 For patients >49 years of age, the reference limitfor Creatinine is approximately 13% higher for peopleidentified as -Citizen Of [place]. eGFR NON- (test code = eGFR NON-LYNETTE N ETHIOPIAN) 52 {ML/MIN/1.7} > OR = 60 eGFR (test code = eGFR ) 60 {ML/MIN/1.7} > OR = 60 N BUN/CREATININE RATIO (test code = BUN/CREATININE RATIO) 22 {CALC} 6-22 N SODIUM (test code = SODIUM) 142 mmol/L 135-146 N POTASSIUM (test code = POTASSIUM) 4.5 mmol/L 3.5-5.3 N CHLORIDE (test code = CHLORIDE) 105 mmol/L 98-110 N CARBON DIOXIDE (test code = CARBON DIOXIDE) 28 mmol/L 20-32 N CALCIUM (test code = CALCIUM) 9.4 mg/dl 8.6-10.4 N PROTEIN, TOTAL (test code = PROTEIN, TOTAL) 7.3 g/dl 6.1-8.1 N ALBUMIN (test code = ALBUMIN) 4.2 g/dl 3.6-5.1 N GLOBULIN (test code = GLOBULIN) 3.1 {G/DL CALC} 1.9-3.7 N ALBUMIN/GLOBULIN RATIO (test code = ALBUMIN/GLOBULIN RATIO) 1.4 {CALC} 1.0-2.5 N BILIRUBIN, TOTAL; Normal (test code = 06442-3) 0.7 mg/dl 0.2-1.2 N ALKALINE PHSPHATASE (test code = ALKALINE PHSPHATASE) 81 u/l 33-130 N AST; Normal (test code = 1916-6) 21 u/l 10-35 N ALT; Normal (test code = 1742-6) 22 u/l 6-29 N [facility]] CBC (INCLUDES DIFF/PLT)2019-05-08 09:47:00* Test Item Value Reference Range Interpretation Comments WHITE BLOOD CELL COUNT (test code = WHITE BLOOD CELL COUNT) 6.6 {Thousand/u} 3.8-10.8 N RED BLOOD CELL COUNT (test code = RED BLOOD CELL COUNT) 4.51 {Million/uL} 3.80-5.10 N HEMAGLOBIN; Normal (test code = 30426-2) 13.9 g/dl 11.7-15.5 N HEMATOCRIT; Normal (test code = 4544-3) 39.7 % 35.0-45.0 N MCV; Normal (test code = 787-2) 88.0 fL 80.0-100.0 N MCHC; Normal (test code = 05612-2) 35.0 g/dl 32.0-36.0 N RDW; Normal (test code = 788-0) 13.1 % 11.0-15.0 N PLATELET COUNT; Normal (test code = 777-3) 269 {Thousand/u} 140-400 N MPV; Normal (test code = 15371-8) 10.5 fL 7.5-12.5 N ABSOLUTE NEUTROPHILS (test code = ABSOLUTE NEUTROPHILS) 3854 {cells/uL} 4484-4598 N ABSOLUTE LYMPHOCYTES (test code = ABSOLUTE LYMPHOCYTES) 1993 {cells/uL} 850-3900 N ABSOLUTE MONOCYTES (test code = ABSOLUTE MONOCYTES) 521 {cells/uL} 200-950 N ABSOLUTE EOSINOPHILS (test code = ABSOLUTE EOSINOPHILS) 172 {cells/ uL} 15-500 N ABSOLUTE BASOPHILS (test code = ABSOLUTE BASOPHILS) 59 {cells/uL} 0 -200 N NEUTROPHILS (test code = NEUTROPHILS) 58.4 % N LYMPHOCYTES (test code = LYMPHOCYTES) 30.2 % N MONOCYTES; Normal (test code = 95602-5) 7.9 % N EOSINOPHILS; Normal (test code = 79163-0) 2.6 % N BASOPHILS; Normal (test code = 23410-6) 0.9 % N [facility]] T4, [id number] 09:47:00* Test Item Value Reference Range Interpretation Comments T4, FREE (test code = T4, FREE) 0.9 ng/dl 0.8-1.8 N [facility]] TSH, 3RD [id number] 09:47:00* Test Item Value Reference Range Interpretation Comments TSH; Normal (test code = 45148-9) 2.53 {MIU/L} 0.40-4.50 N [facility] HospitalDUODENUM,[id number] 16:12:00 RUN DATE: 08/11/18 [facility] PAGE 1 RUN TIME: 1612 Specimen Inqui ry RUN USER: INTERFACE PATIENT: DESMONDAYLIN CRISS ACCT #: V [id number] LOC: [facility] U #: [id number] AGE/SX: 78/F ROOM: RE08/09/18XU DR: Trent Bailon : 38 BED: DIS: STATUS: [facility] TLOC: SPEC #: [id number] RECD: 08/09/18 STATUS: SAMMY GILMAN #: [id number] IRA: 08/09/18 [facility] DR: Trent Bailon MD ENTERED: 08/09/18 SP TYPE: BX DUODEN OTHR DR: Ale Vasquez MD ORDERED: GROSS COPIES TO: Trent Bailon MD [address] [place] [address] Ale Tejeda MD [address] [facility] [place] [place] [address] PROCEDURES: GROSS (07/23 09/08-1004) TISSUES: 1. DUODENUM, NOS - BX 2. ANTRUM - BX 3. ESOPHAGEAL MUCOUS MEMBRANE - BX CLINICAL HISTORY COLLECTION DAWOOD E: 08/09/18 REFLUX, HIATAL HERNIA, ABDOMINAL PAIN, EPIGASTRIC PAIN FINAL DIAGNOSIS Duodenum, biopsy: SMALL INTESTINAL MUCOSA, NO PATHOLO GIC ALTERATION Antrum, biopsy: REACTIVE GASTROPATHY WITH MILD CHRONIC INFLAMMATION NO INTESTINAL METAPLASIA SEEN NEGATIVE FOR HE LICOBACTER PYLORI NEGATIVE FOR MALIGNANCY Esophagus, biopsy: MILD ACUTE AND CHRONIC INFLAMMATION WITH REACTIVE EPITHELIAL CHANGES, MIXED SQUAMOUS ESOPHAGEAL AND GASTRIC TYPE MUCOSA NEGATIVE FOR INTESTINAL METAPLASIA, DYSPLASIA, AND MALIGNANCY DMW/sm CONTINUED ON NEXT PAGE RUN DATE: 08/11/18 [facility] PAGE 2 RUN TIME: 1612 Specimen Inquiry RUN USER: INTERFACE SPEC #: [id number] PATIENT: AYLIN LOGAN #[id number] (Continued) FINAL DIAGNOSIS (Continued) D 3) 28508, 659 12 MACROSCOPIC The first specimen is received in formalin, labeled with the patient's name, identified as "duodenum", and consists of biopsy tissue measuring 0.5 cm in aggregate, submitted as (1). The second speci men is received in formalin, labeled with the patient's name, identified as "a ntrum", and consists of -pink biopsy tissue measuring 0.3 cm in aggregate, submitted as (2) for H E and Giemsa stains. The third specimen is received in formalin, labeled with the patient's name, identified as "esophagus", and consists of light biopsy tissue measuring 0.25 cm in aggregate, submitted as (3). GROSS PERFORMED AT [facility] [address] [place] [address] (p)[phone] MICROS COPIC MICROSCOPIC PERFORMED AT [facility] All of the stains, in cluding any controls performed, stain appropriately. [facility] [address] [place] [address] (p)[phone] PERFORMIN SITE Diagnosis performed at: [facility], [place] [address] [place], [place] [address] - Signed SIGNATURE ON FILE Zohra Mirza 08/11/18 1612 END OF REPORT [O] Flu Test (in Office )2018-05-01 13:48:00* Test Item Value Reference Range Interpretation Comments Flu A (test code = Flu A) neg N Flu B (test code = Flu B) neg N [facility][O] Streptococcus Test Rapid (In Office)2018-05-01 13:46:00* Test Item Value Reference Range Interpretation Comments Group A Strep Screen; Normal (test code = 41608-2) neg N [facility] PhysiciansBreast Complete Venancio [id number] 11:20:00COMPLETE ULTRASOUND OF BOTH BREASTS AND AXILLA: 03/22/2018CLINICAL: /F/U bilateral breast massesleft LIQ lump. COMPARISON:Comparison is made to exams dated: 03/22/2018 mammogram, 05/12/2016ultrasound, 05/12/2016 mammogram, 04/28/2016 mammogram, 03/24/2012 mammogram, and09/21/2013 mammogram - [facility]. TECHNIQ UE: Color flow and real-time ultrasound of both breasts four quadrants,retroareo lar, and axilla regions were performed. Russell scale images of thereal-time exami [place] [facility] were reviewed. FINDINGS:There are various sized benign simple and minima lly complicated cysts with acircumscribed margin with internal echoes and senior gis analyst ior enhancement left breastthat correlate with mammography and ultrasound. There also is a stable benign appearing mass left breast at 1 o'clock thatcorrelates with ultrasound. Additionally, there is a stable benign appearing mass right dionna ast at 6o'clock. Additionally, there also is a stable benign calcification righ tbreast at 12 o'clock that correlates with mammography and ultrasound. There is a 5 mm oval mass with a circumscribed margin in the right breast at 9o'clock pos terior depth 2 cm from the nipple. This oval mass is hypoechoicwith posterior a coustic shadowing. This correlates as an incidental finding. No abnormalities w ere seen sonographically in either axilla. IMPRESSION: PROBABLY BENIGNThe 5 mm o marija mass in the right breast most likely is a complicated cyst and isprobably be nign. A follow-up in 6 months is recommended. Bilateral benign breast cyst and masses.There is no mammographic or sonographic abnormality seen in the left mayuri st tocorrespond with the palpable abnormality in the lower inner quadrant which isconsistent with normal fibroglandular tissue. A follow up right breast ultraso und with possible diagnostic mammogram in 6months is recommended to demonstrate stability.(09/21/2018) The results werereviewed with the patient. This exam wa s interpreted at [id number] for [facility]. Narciso Woo M.D. jt/: 13:05:54 Certified Veterinary Technician(s): Jimy Ferrari [facility]: BI-RADS 3 Ultrasound BI-RADS: 3 Probably benign--Read by: Narciso Woo MDDictated Date/time: 03/22/18 13:05Electronically Signed by: Narciso Gurera MD 03/22/1813:05FINAL REPORTUnO[facility] Digital Mammo DX Venancio [id number] 10:43:00BILATERAL DIGITAL DIAGNOSTIC MAMMOGRAM WITH CAD: 03/22/2018CLINICAL: Bilateral Breast Nodules and left LIQ lumpabnormal mammogram, mammographic nodule/densityprobably benign finding - follow up from 2016 not done. Current study was evaluated with a Computer Aided Detection (CAD) system. COMPARISON:Comparison is made to exams dated: 05/12/2016 mammogram, 04/28/2016mammogram, 09/21/2013 mammogram, 03/24/2012 mammogram, 02/15/2011 mammogram, and05/12/2016 ultrasound - [facility]. TECHNIQUE: Mammographic views were obtained using digital acquisitio n. CenoviaVersion 1.3 was utilized for computer aided detection. FINDINGS:The ti ssue of both breasts is heterogeneously dense, which could obscuredetection of s mall masses. Scattered densities are noted in both breasts. There is a benign in tramammary node in the left breast. There also are benignvascular calcification s and calcifications in both breasts. No significant masses, calcifications, or other findings are seen in eitherbreast. IMPRESSION: INCOMPLETE: NEEDS ADDITIONA L IMAGING EVALUATIONRECOMMENDATION:Scattered densities are noted in both breasts . Furtherevaluation with bilateral ultrasound is recommended. There is no mammo graphic abnormality seen in the left breast to correspond withthe palpable abnor mality in the lower inner quadrant, however, ultrasound isrecommended. The resul ts were reviewed with the patient. This exam was interpreted at [id number] for [facility]. SUMMARY:Ultrasound will be performed at this time; ple ase see dedicated separatereport. Ultrasound will also reevaluate prior probably benign findings. Narciso madera/isma:03/22/2018 13:07:20 Imaging T echnologist(s): Ida Merritt [facility] HospitalM[facility] BI-RADS: 0 Indeterminate--Read by: Narciso Woo MDDictated Date/time: 03/22/18 13:07El ectronically Signed by: Narciso Woo MD 03/22/1813:07 FINAL REPORTUnValley View Medical Center PhysiciansCHEM [id number] 15:31:0061 [facility] FriscoCHEM [id number] 15:31:000.[facility]ri[facility] CenterannCHEM PANEL 2018-02-23 14:31:0061[facility]ufkinannCHEM [id number] 14:31:000.[facility]] CMP [id number] 08:46:00* Test Item Value Reference Range Interpretation Comments GLUCOSE; Above High Threshold (test code = 1547-9) 103 mg/dl 65- 99 Fasting reference interval For someone without known diabetes, a glucose valuebetween 100 and 125 mg/dL is consistent withprediabetes and should be confirmed with afollow-up test. UREA NITROGEN (BUN) (test code = UREA NITROGEN (BUN)) 20 mg/dl 7-25 N CREATININE (test code = CREATININE) 0.90 mg/dl 0.60-0.93 N For patients >49 years of age, the reference limitfor Creatinine is approximately 13% higher for peopleidentified as -Citizen Of [place]. eGFR NON- (test code = eGFR NON-LYNETTE N ETHIOPIAN) 61 {ML/MIN/1.7} > OR = 60 N eGFR (test code = eGFR ) 70 {ML/MIN/1.7} > OR = 60 N BUN/CREATININE RATIO (test code = BUN/CREATININE RATIO) NOT APPLICA BLE 6-22 SODIUM (test code = SODIUM) 142 mmol/L 135-146 N POTASSIUM (test code = POTASSIUM) 4.9 mmol/L 3.5-5.3 N CHLORIDE (test code = CHLORIDE) 106 mmol/L 98-110 N CARBON DIOXIDE (test code = CARBON DIOXIDE) 31 mmol/L 20-31 N CALCIUM (test code = CALCIUM) 9.4 mg/dl 8.6-10.4 N PROTEIN, TOTAL (test code = PROTEIN, TOTAL) 6.8 g/dl 6.1-8.1 N ALBUMIN (test code = ALBUMIN) 4.1 g/dl 3.6-5.1 N GLOBULIN (test code = GLOBULIN) 2.7 {G/DL CALC} 1.9-3.7 N ALBUMIN/GLOBULIN RATIO (test code = ALBUMIN/GLOBULIN RATIO) 1.5 {CALC} 1.0-2.5 N BILIRUBIN, TOTAL; Normal (test code = 39347-7) 0.7 mg/dl 0.2-1.2 N ALKALINE PHSPHATASE (test code = ALKALINE PHSPHATASE) 76 u/l 33-130 N AST; Normal (test code = 1916-6) 19 u/l 10-35 N ALT; Normal (test code = 1742-6) 19 u/l 6-29 N [facility]] PARTIAL THROMBOPLASTIN TIME, ACTIVATED 2018-01-25 08:46:00* Test Item Value Reference Range Interpretation Comments PARTIAL THROMBOPLASTIN TIME, ACTIVATED ( test code = PARTIAL THROMBOPLASTIN TIME, ACTIVATED) 25 {sec} 22-34 N This test has no t been validated for monitoringunfractionated heparin therapy. For testing thatis validated for this type of therapy, please referto the Heparin Anti-Xa assay (test code 80752). For additional information, please refer tohttp://Livescribe.Jeds Barbe[employer] and Brew/faq/TDN934(This link is being provided for informational/educational purposes only.) [facility]] URINALYSIS, COMPLETE W/REFLEX TO CULTURE 2018-01-25 08:46:00* Test Item Value Reference Range Interpretation Comments COLOR; Normal (test code = 5778-6) YELLOW YELLOW N APPEARANCE (test code = APPEARANCE) HAZY CLEAR A SPECIFIC GRAVITY; Normal (test code = 2965-2) 1.021 1.001-1. 035 N PH; Normal (test code = 2756-5) 6.0 5.0-8.0 N GLUCOSE; Normal (test code = 1547-9) NEGATIVE NEGATIVE N BILIRUBIN; Normal (test code = 88448-2) NEGATIVE NEGATIVE N KETONES; Normal (test code = 96314-2) NEGATIVE NEGATIVE N OCCULT BLOOD; Normal (test code = 03917-9) NEGATIVE NEGATIVE N PROTEIN; Normal (test code = 24291-5) NEGATIVE NEGATIVE N NITRITE (test code = NITRITE) NEGATIVE NEGATIVE N LEUKOCYTE ESTERASE (test code = LEUKOCYTE ESTERASE) TRACE NE GATIVE A WBC; Abnormal (test code = 6690-2) 6-10 < OR = 5 A RBC; Normal (test code = 789-8) 0-2 < OR = 2 N SQUAMOUS EPITHELIAL CELLS; Abnormal (test code = 58249-4) 20-40 < OR = 5 A BACTERIA; Abnormal (test code = 630-4) FEW NONE SEEN A HYALINE CAST; Abnormal (test code = 48740-8) 0-1 NONE SEEN A [facility]] PROTHROMBIN [id number] 08:46:00* Test Item Value Reference Range Interpretation Comments INR (test code = INR) 1.0 N Refere nce Range 0.9-1.1Moderate-intensity Warfarin Therapy 2.0-3.0Higher-intensity Warfarin Therapy 3.0-4.0 PT (test code = PT) 11.1 {sec} 9.0-11.5 N For more information on this test, go to:http://education.Citelighter/faq/LXX227 [facility][] REFLEXIVE URINE [id number] 08:46:00* Test Item Value Reference Range Interpretation Comments REFLEXIVE URINE CULTURE (test code = REFLEXIVE URINE C ULTURE) CULTURE INDICATED - RESULTS TO FOLLOW [facility]] TSH, 3RD GENERATION W/REFLEX TO FT4 2018-01-25 08:46:00* Test Item Value Reference Range Interpretation Comments TSH, 3RD GENERATION W/REFLEX TO FT4 (kaya t code = TSH, 3RD GENERATION W/REFLEX TO FT4) 0.78 {MIU/L} 0.40-4.50 N [facility]] CULTURE, URINE, [id number] 08:46:00* Test Item Value Reference Range Interpretation Comments CULTURE (test code = CULTURE) See Comment CULTURE, URINE, ROUTINE MICRO NUMBER: [id number] TEST STATUS: FINAL SPECIMEN SOURCE: URINE SPECIMEN QUALITY: ADEQUATE RESULT: Multiple organisms present, each less than 10,000 CFU/mL. These organisms, commonly found on external and internal genitalia, are considered to be colonizers. No further testing performed. [facility][U] XRAY KNEE 4 OR MORE VWS LEFT [id number] 16:40:00Images acquired, not reported on this accession number.[facility]
== END 2020-05-03 23:24 | disposition home or self-care (01) ==
LOC: FSED 20:25
DX: S39.012A Strain of muscle, fascia and tendon of lower back, initial encounter (principal); R06.02 Shortness of breath; E03.9 Hypothyroidism, unspecified; K21.9 Gastro-esophageal reflux disease without esophagitis; E78.00 Pure hypercholesterolemia, unspecified
CPT/HCPCS: 36415; 71046; 80048; 80076; 82553; 83880; 84484; 85025; 85379; 85610; 93005; 99284; J2270; J2405